=== PATIENT | female | born 1950 | race Asian ===

== ENCOUNTER 2018-09-13 16:03 | Inpatient (IN) | payer BC, MEDICARE ==
[2018-09-13] MEDS ORDERED: NACL 0.9% 1000 ML 1,000 ML IV ONE ×3 (16:15→18:21)
--- NOTE | 2018-09-13 16:20 | Emergency Department Report ---
Blank Doc - Documentation Documentation: 68 y/o female with DM II on Metformin. Comes in for hyperglycemia. Was seen by Dr. Toth today and was sent to ER last A1c 15. Lanse dizzy. This initial assessment diagnostic orders/clinical plan/treatment (s) is/Are subject change based on patient's health status, clinical progression and re- assessment by fellow clinical providers in the ED. Further treatment and work-up at subsequent clinical providers discretion. Patient/guardians urged not to elope from s their condition may be serious if not clinically assessed and managed. Inital order include:
[2018-09-13 16:39] LABS: Basophils % (Auto) 0.4 % (0.0-1.8); Eosinophils % (Auto) 0.5 % (0.0-4.3); Hematocrit 40.4 % (30.3-42.9); Hemoglobin 13.5 gm/dl (10.1-14.3); Lymphocytes # (Auto) 1.1 K/mm3 (1.2-5.4); Lymphocytes % (Auto) 15.5 % (13.4-35.0); Mean Corpuscular HGB Conc 34 % (30-34); Mean Corpuscular Volume 96 fl (79-97); Monocytes # (Auto) 0.6 K/mm3 (0.0-0.8); Monocytes % (Auto) 8.5 % (0.0-7.3); Platelet Count 234 K/mm3 (140-440); Red Blood Count 4.19 M/mm3 (3.65-5.03); Red Cell Distribution Width 12.8 % (13.2-15.2)
[2018-09-13 17:09] LABS: Alanine Aminotransferase 10 units/L (7-56); Albumin 3.9 g/dL (3.9-5); BUN/Creatinine Ratio 27; Blood Urea Nitrogen 16 mg/dL (7-17); Calcium 8.9 mg/dL (8.4-10.2); Hemolysis Index 5
[2018-09-13] MEDS ORDERED: HumuLIN R IV ONE (17:28)
--- NOTE | 2018-09-13 17:34 | Emergency Department Report ---
ED General Adult HPI - General Chief complaint: Hyperglycemia Stated complaint: UNCONTROLLED SUGAR LEVEL Time Seen by Provider: 09/13/18 16:13 Source: patient Mode of arrival: Ambulatory Limitations: No Limitations - History of Present Illness Initial comments: 68-year-old female with history of diabetes, currently on metformin and presents the ED with hyperglycemia. Patient states she recently had blood work done, returned to her PCPs office today for results, and was told to come to the ER because her glucose was 503 in the office, A1C 15.4. Patient currently on metformin. The patient denies nausea, vomiting, diarrhea, abdominal pain, fever, recent illness. PCP: Dr Rod Ta -: unknown Severity scale (0 -10): 0 Improves with: none Worsens with: none Associated Symptoms: denies: chest pain, fever/chills, nausea/vomiting Treatments Prior to Arrival: none - Related Data Allergies Allergy/AdvReac Type Severity Reaction Status Date / Time No Known Allergies Allergy Unverified 09/13/18 16:10 ED Review of Systems ROS: Stated complaint: UNCONTROLLED SUGAR LEVEL Other details as noted in HPI Comment: All other systems reviewed and negative Constitutional: other (reports unexplained weight loss). denies: chills, fever Respiratory: denies: cough Cardiovascular: denies: chest pain Gastrointestinal: denies: abdominal pain, vomiting, diarrhea ED Past Medical Hx - Past Medical History Previous Medical History?: Yes Hx Diabetes: Yes Hx Asthma: Yes Additional medical history: Legally Blind - Surgical History Past Surgical History?: No - Social History Smoking Status: Never Smoker Substance Use Type: None ED Physical Exam - General Limitations: No Limitations General appearance: alert, in no apparent distress - Head Head exam: Present: atraumatic, normocephalic - Eye Eye exam: Present: normal appearance - ENT ENT exam: Present: mucous membranes moist - Neck Neck exam: Present: normal inspection - Respiratory Respiratory exam: Present: normal lung sounds bilaterally. Absent: respiratory distress - Cardiovascular Cardiovascular Exam: Present: regular rate, normal rhythm - GI/Abdominal GI/Abdominal exam: Present: soft, distended. Absent: tenderness - Extremities Exam Extremities exam: Present: normal inspection - Neurological Exam Neurological exam: Present: alert, oriented X3 - Psychiatric Psychiatric exam: Present: normal affect, normal mood - Skin Skin exam: Present: warm, dry, intact, normal color ED Course Vital Signs 02/09/13/18 09/13/18 16:14 16:53 19:40 Temperature 98.3 F 99.1 F Pulse Rate 98 H 111 H Respiratory 16 16 16 Rate Blood Pressure 128/75 Blood Pressure 139/86 [Left] O2 Sat by Pulse 98 100 Oximetry 09/13/18 09/13/18 09/13/18 20:45 21:00 21:15 Temperature Pulse Rate 119 H 102 H 97 H Respiratory 19 16 18 Rate Blood Pressure 128/79 128/79 Blood Pressure [Left] O2 Sat by Pulse 100 100 Oximetry 09/13/18 09/13/18 09/13/18 22:53 22:59 23:00 Temperature Pulse Rate 80 71 71 Respiratory 9 L 12 12 Rate Blood Pressure 152/87 162/85 140/87 Blood Pressure [Left] O2 Sat by Pulse Oximetry 09/13/18 09/13/18 09/13/18 23:15 23:23 23:30 Temperature Pulse Rate 70 72 68 Respiratory 12 11 L 13 Rate Blood Pressure 140/87 140/87 140/87 Blood Pressure [Left] O2 Sat by Pulse Oximetry 09/13/18 09/13/18 09/14/18 23:33 23:45 00:01 Temperature Pulse Rate 65 73 68 Respiratory 13 13 13 Rate Blood Pressure 128/79 140/77 123/74 Blood Pressure [Left] O2 Sat by Pulse Oximetry 09/14/18 09/14/18 09/14/18 00:15 00:30 00:45 Temperature Pulse Rate 70 67 70 Respiratory 9 L 12 13 Rate Blood Pressure 123/74 138/80 138/80 Blood Pressure [Left] O2 Sat by Pulse Oximetry ED Medical Decision Making - Lab Data Result diagrams: 09/13/18 16:28 09/13/18 22:47 - Medical Decision Making 68 year old female with extremely elevated glucose. Patient states she is compliant with her metformin and follows a diabetic diet. Patient's PCP contacted hospitalist, Dr. Pereira, for admission of the patient and insulin therapy. Patient does not appear to be in DKA, as her bicarbonate and anion gap are both normal. IV fluids and insulin given. Patient admitted to hospitalist. - Differential Diagnosis hyperglycemia, UTI, DKA Critical care attestation.: If time is entered above; I have spent that time in minutes in the direct care of this critically ill patient, excluding procedure time. ED Disposition Clinical Impression: Hyperglycemia Disposition: DC- OP ADMIT IP TO THIS HOSP Is pt being admited?: Yes Condition: Stable Time of Disposition: 17:39
[2018-09-13] MEDS ORDERED: PROVENTIL IH PRN (18:18)
[2018-09-13] MEDS ORDERED: SODIUM CHLORIDE FLUSH SYRINGE 10 ML IV PRN (18:18)
[2018-09-13] MEDS ORDERED: D50W (25GM) Syringe IV PRN (18:21)
--- NOTE | 2018-09-13 18:22 | History and Physical Report ---
History of Present Illness Chief complaint: My blood sugar is high History of present illness: 68 YO Female DM, Dementia, Malnutrition, Asthma, Legally blind presents to ED for evaluation. Patient was seen and evaluated by he PCP and was found to have glucose of 503 and HGB A1c of 15.4. Pt also reports polydipsia, polyuria. Pt instructed to seek further care and evaluation at [facility]. Pt seen and evaluated in ED and found to have DKA, and Visual Impairment,Severe Malnutrition, volume depletion. Pt initiated on DKA protocol and admitted to ICU. PT denies fever, chills, CP, Palpitations, Trauma, Syncope, Productive cough, or recent ill contacts. PCP: Dr. Ta. Past History Past Medical History: diabetes, other (Dementia,) Past Surgical History: No surgical history, Other (reviewed) Social history: single. denies: smoking, alcohol abuse, prescription drug abuse Family history: diabetes, hypertension Medications and Allergies Allergies Allergy/AdvReac Type Severity Reaction Status Date / Time No Known Allergies Allergy Unverified 09/13/18 16:10 Active Meds: Active Medications Albuterol (Proventil) 2.5 mg IH Q3HRT PRN PRN Reason: Shortness Of Breath Sodium Chloride (Nacl 0.9% 1000 Ml) 1,000 mls @ 999 mls/hr IV BOLUS ONE Stop: 09/13/18 18:28 Sodium Chloride (Sodium Chloride Flush Syringe 10 Ml) 10 ml IV BID AUSTEN Sodium Chloride (Sodium Chloride Flush Syringe 10 Ml) 10 ml IV PRN PRN PRN Reason: LINE FLUSH Review of Systems Constitutional: other (high blood sugear), no weight loss, no weight gain, no fever, no chills Ears, nose, mouth and throat: no ear pain, no ear discharge, no tinnitis, no decreased hearing, no nose pain Breasts: no change in shape, no swelling, no mass Cardiovascular: no chest pain, no orthopnea, no palpitations, no rapid/irregular heart beat Respiratory: no cough, no cough with sputum, no excessive sputum, no hemoptysis Gastrointestinal: no abdominal pain, no nausea, no vomiting Rectal: no pain, no incontinence, no bleeding Musculoskeletal: no neck stiffness, no neck pain, no shooting arm pain, no arm numbness/tingling, no low back pain Integumentary: no rash, no pruritis, no redness, no sores, no wounds Neurological: no paralysis, no weakness, no parathesias, no numbness, no tingling, no seizures Psychiatric: no anxiety, no memory loss, no change in sleep habits, no sleep disturbances, no insomnia, no hypersomnia, no change in appetite Endocrine: polydipsia, polyuria, nocturia, no cold intolerance, no heat intolerance, no polyphagia Hematologic/Lymphatic: no easy bruising, no easy bleeding Allergic/Immunologic: no urticaria, no allergic rhinitis Exam - Constitutional Vitals: Temp Pulse Resp BP Pulse Ox 98.3 F 98 H 16 128/75 98 09/13/18 16:14 09/13/18 16:14 09/13/18 16:53 09/13/18 16:14 09/13/18 16:14 General appearance: Present: mild distress - EENT Eyes: Present: PERRL ENT: hearing intact, clear oral mucosa - Neck Neck: Present: supple, normal ROM - Respiratory Respiratory effort: normal Respiratory: bilateral: CTA - Cardiovascular Heart Sounds: Present: S1 & S2. Absent: rub, click - Extremities Extremities: pulses symmetrical, No edema Peripheral Pulses: within normal limits - Abdominal General gastrointestinal: Present: soft, non-tender, non-distended, normal bowel sounds Female genitourinary: Present: normal - Integumentary Integumentary: Present: clear, warm, dry - Musculoskeletal Musculoskeletal: gait normal, strength equal bilaterally - Psychiatric Psychiatric: appropriate mood/affect, intact judgment & insight - Neurologic Neurologic: CNII-XII intact, moves all extremities Results - Labs CBC & Chem 7: 09/14/18 03:26 09/14/18 04:06 Labs: Abnormal lab results 09/13/18 09/13/18 09/13/18 Range/Units 16:17 16:28 16:28 RDW 12.8 L (13.2-15.2) % [place] % (Auto) 8.5 H (0.0-7.3) % Lymph # 1.1 L (1.2-5.4) K/mm3 Seg Neutrophils % 75.1 H (40.0-70.0) % Sodium 127 L (137-145) mmol/L Chloride 88.1 L (98-107) mmol/L Creatinine 0.6 L (0.7-1.2) mg/dL Glucose 726 H* (65-100) mg/dL POC Glucose > 500 H (70-105) Assessment and Plan - Patient Problems (1) DKA (diabetic ketoacidoses) Current Visit: Yes Status: Acute Qualifiers: Diabetes mellitus type: type 1 Plan to address problem: Admit to ICU: Initiate DKA protocol, IVF resuscitation therapy, monitor uop qshift, ivf resuscitation, insulin drip, serial bmp to monitor anion gap The high probability of a clinically significant, sudden or life threatening deterioration of the [neuro, endocrine] system(s) required my full and direct attention, intervention and personal management. The aggregate critical care time was [65] minutes. This time is in addition to time spent performing reported procedures but includes the following: [x] Data Review and interpretation [x] Patient assessment and monitoring of vital signs [x] Documentation [x] Medication orders and management (2) Malnutrition Current Visit: Yes Status: Acute Plan to address problem: moderate-severe malnutrition: Encourage increased protein intake (3) Volume depletion Current Visit: Yes Status: Acute Plan to address problem: IVF resuscitation therapy (4) DVT prophylaxis Current Visit: Yes Status: Acute Plan to address problem: scd to ble while in bed
[2018-09-13] MEDS ORDERED: HumuLIN R 100 UNITS in NACL 0.9% 99 ML IV SCH (19:00)
[2018-09-13 19:14] LABS: BUN/Creatinine Ratio 25; Blood Urea Nitrogen 15 mg/dL (7-17); Calcium 8.8 mg/dL (8.4-10.2); Hemolysis Index 4
[2018-09-13] MEDS ORDERED: NACL 0.9% 1000 ML 1,000 ML ONE (19:44)
[2018-09-13 20:51] LABS: BUN/Creatinine Ratio 28; Blood Urea Nitrogen 14 mg/dL (7-17); Calcium 7.7 mg/dL (8.4-10.2); Hemolysis Index 3
[2018-09-13 23:16] LABS: BUN/Creatinine Ratio 24; Blood Urea Nitrogen 12 mg/dL (7-17); Calcium 8.1 mg/dL (8.4-10.2); Hemolysis Index 4
[2018-09-13] MEDS ORDERED: D5W/0.45% NACL/KCL 20 MEQ 20 MEQ/1,000 ML BAG IV SCH (23:45)
[2018-09-13] MEDS: SODIUM CHLORIDE FLUSH SYRINGE 10 ML IV SCH (23:48)
[2018-09-14 01:00] LABS: BUN/Creatinine Ratio 20; Blood Urea Nitrogen 10 mg/dL (7-17); Calcium 7.9 mg/dL (8.4-10.2); Hemolysis Index 6
[2018-09-14 03:32] LABS: Basophils % (Auto) 0.3 % (0.0-1.8); Eosinophils # (Auto) 0.1 K/mm3 (0.0-0.4); Eosinophils % (Auto) 1.7 % (0.0-4.3); Hematocrit 35.5 % (30.3-42.9); Hemoglobin 12.1 gm/dl (10.1-14.3); Lymphocytes # (Auto) 1.4 K/mm3 (1.2-5.4); Lymphocytes % (Auto) 21.1 % (13.4-35.0); Mean Corpuscular HGB Conc 34 % (30-34); Mean Corpuscular Volume 95 fl (79-97); Monocytes # (Auto) 0.6 K/mm3 (0.0-0.8); Monocytes % (Auto) 9.6 % (0.0-7.3); Platelet Count 223 K/mm3 (140-440); Red Blood Count 3.74 M/mm3 (3.65-5.03); Red Cell Distribution Width 12.8 % (13.2-15.2)
[2018-09-14 04:07] LABS: Alanine Aminotransferase 10 units/L (7-56); BUN/Creatinine Ratio 23; Blood Urea Nitrogen 9 mg/dL (7-17); Calcium 8.1 mg/dL (8.4-10.2); Hemolysis Index 6
[2018-09-14 05:11] LABS: Alanine Aminotransferase 10 units/L (7-56); Albumin 2.9 g/dL (3.9-5); BUN/Creatinine Ratio 23; Blood Urea Nitrogen 9 mg/dL (7-17); Hemolysis Index 10
[2018-09-14] MEDS: SODIUM CHLORIDE FLUSH SYRINGE 10 ML IV SCH ×2 (10:57→21:37)
--- NOTE | 2018-09-14 11:05 | Progress Note ---
Assessment and Plan Assessment and plan: Patient is a 68 yo woman with a history of DM, Malnutrition, Asthma and Legally blind who presented to ED with uncontrolled hyperglycemia of 503 and HGB A1c of 15.4. She was diagnosis with DKA and treated with IV insulin drip and admitted to ICU. Her main compliant is unintentional weight loss and problems with her eye sight. She went to Dr. Ta's office for clearance for eye surgery but her BG was too high -HONK, resolved: transition to long acting insulin -Unintentional weight Loss, 80 lbs in 3 months: spoke with PCP Dr. Ta, he gave he referrals for mammogram, pap smear and colonoscopy but patient did not follow through -Severe Malnutrition, poa: Consult -Hypokalemia: replaced and monitor closely -Uncontrolled DM, A1C 12.2: add ssi -Legally blind and no support home which makes dosing Insulin difficulty: consult case management CCT 34 minutes History Interval history: Patient was seen and examined. Follow-up on current diagnosis of uncontrolled BG. Overnight uneventful. Patient denies any chest pain, shortness breath, nausea/vomiting or severe headaches. Imaging, nursing note, chart, labs and old chart reviewed. Discussed with patient. Hospitalist Physical - Physical exam Narrative exam: Gen: cachetic, NAD, Awake, Alert, Orientated HEENT: NCAT, EOMI, PERRL, OP Clear, severe yazdanism muscle wasting Neck: supple, no adenopathy, no thyromegaly, no JVD CVS/Heart: RRR, normal S1S2, pulses present bilaterally Chest/Lungs: CTA B, Symmetrical chest expansion, good air entry bilaterally GI/Abdomen: soft, NTND, good bowel sounds, no guarding or rebound /Bladder: no suprapubic tenderness, no CVA or paraspinal tenderness Extermity/Skin: no c/c/e, no obvious rash MSK: FROM x 4 Neuro: CN 2-12 grossly intact, no new focal deficits Psych: calm - Constitutional Vitals: Temp Pulse Resp BP Pulse Ox 97.9 F 68 12 138/80 100 09/14/18 08:00 09/14/18 01:15 09/14/18 01:15 09/14/18 01:15 09/13/18 21:15 Results - Labs CBC & Chem 7: 09/14/18 03:26 09/14/18 04:06 Labs: Laboratory Last Values WBC 6.6 K/mm3 (4.5-11.0) 09/14/18 03:26 RBC 3.74 M/mm3 (3.65-5.03) 09/14/18 03:26 Hgb 12.1 gm/dl (10.1-14.3) 09/14/18 03:26 Hct 35.5 % (30.3-42.9) 09/14/18 03:26 MCV 95 fl (79-97) 09/14/18 03:26 MCH 32 pg (28-32) 09/14/18 03:26 MCHC 34 % (30-34) 09/14/18 03:26 RDW 12.8 % (13.2-15.2) L 09/14/18 03:26 Plt Count 223 K/mm3 (140-440) 09/14/18 03:26 Lymph % (Auto) 21.1 % (13.4-35.0) 09/14/18 03:26 [place] % (Auto) 9.6 % (0.0-7.3) H 09/14/18 03:26 Eos % (Auto) 1.7 % (0.0-4.3) 09/14/18 03:26 Baso % (Auto) 0.3 % (0.0-1.8) 09/14/18 03:26 Lymph # 1.4 K/mm3 (1.2-5.4) 09/14/18 03:26 [place] # 0.6 K/mm3 (0.0-0.8) 09/14/18 03:26 Eos # 0.1 K/mm3 (0.0-0.4) 09/14/18 03:26 Baso # 0.0 K/mm3 (0.0-0.1) 09/14/18 03:26 Seg Neutrophils % 67.3 % (40.0-70.0) 09/14/18 03:26 Seg Neutrophils # 4.4 K/mm3 (1.8-7.7) 09/14/18 03:26 Sodium 139 mmol/L (137-145) 09/14/18 04:06 Potassium 3.7 mmol/L (3.6-5.0) 09/14/18 04:06 Chloride 105.0 mmol/L (98-107) 09/14/18 04:06 Carbon Dioxide 20 mmol/L (22-30) L 09/14/18 04:06 Anion Gap 18 mmol/L 09/14/18 04:06 BUN 9 mg/dL (7-17) 09/14/18 04:06 Creatinine 0.4 mg/dL (0.7-1.2) L 09/14/18 04:06 Estimated GFR > 60 ml/min 09/14/18 04:06 BUN/Creatinine Ratio 23 % 09/14/18 04:06 Glucose 160 mg/dL (65-100) H 09/14/18 04:06 POC Glucose 73 (70-105) 09/14/18 10:49 Hemoglobin A1c 12.2 % (4-6) H 09/13/18 18:50 Calcium 8.0 mg/dL (8.4-10.2) L 09/14/18 04:06 Phosphorus 2.90 mg/dL (2.5-4.5) 09/13/18 18:50 Magnesium 1.70 mg/dL (1.7-2.3) 09/13/18 18:50 Total Bilirubin 0.90 mg/dL (0.1-1.2) 09/14/18 04:06 AST 11 units/L (5-40) 09/14/18 04:06 ALT 10 units/L (7-56) 09/14/18 04:06 Alkaline Phosphatase 39 units/L (35-129) 09/14/18 04:06 Total Protein 5.2 g/dL (6.3-8.2) L 09/14/18 04:06 Albumin 2.9 g/dL (3.9-5) L 09/14/18 04:06 Albumin/Globulin Ratio 1.3 % 09/14/18 04:06
[2018-09-14] MEDS ORDERED: D50W (25GM) Syringe IV PRN (11:28)
[2018-09-14] MEDS: HumaLOG SUB-Q SCH ×3 (11:45→21:36)
[2018-09-14] MEDS: LANTUS SUB-Q SCH (11:50)
--- NOTE | 2018-09-14 12:37 | Consultation ---
History of Present Illness - Reason for Consult Consult date: 09/14/18 Hyperglycemia Requesting physician: FRANKLYN OSWALD - History of Present Illness 68 y/o female with know diabetes, called her PCP who instructed her to come to ED secondary to elevated blood sugar. Patient was not in DKA. She was started on an insulin drip and this she used at total of 24 units in the last 9 hours. Drip is now off. Unclear as to why she was admitted to the ICU. Past History Past Medical History: diabetes, other (Dementia,) Past Surgical History: No surgical history, Other (reviewed) Social history: single. denies: smoking, alcohol abuse, prescription drug abuse Family history: diabetes, hypertension Medications and Allergies Allergies Allergy/AdvReac Type Severity Reaction Status Date / Time No Known Allergies Allergy Unverified 09/13/18 16:10 Active Meds: Active Medications Albuterol (Proventil) 2.5 mg IH Q3HRT PRN PRN Reason: Shortness Of Breath Dextrose (D50w (25gm) Syringe) 50 ml IV PRN PRN PRN Reason: Hypoglycemia Insulin Glargine (Lantus) 10 units SUB-Q QAMDIAB AUSTNE Insulin Human Lispro (Humalog) 0 unit SUB-Q ACHS AUSTEN; Protocol Sodium Chloride (Sodium Chloride Flush Syringe 10 Ml) 10 ml IV BID AUSTEN Last Admin: 09/13/18 23:48 Dose: 10 ml Documented by: Sodium Chloride (Sodium Chloride Flush Syringe 10 Ml) 10 ml IV PRN PRN PRN Reason: LINE FLUSH Review of Systems All systems: negative Exam - Constitutional Vitals: Temp Pulse Resp BP Pulse Ox 98.6 F 68 12 138/80 100 09/14/18 12:00 09/14/18 01:15 09/14/18 01:15 09/14/18 01:15 09/14/18 11:58 General appearance: Present: no acute distress - EENT Eyes: Present: PERRL, EOM intact ENT: hearing intact, clear oral mucosa - Neck Neck: Present: supple, normal ROM - Respiratory Respiratory effort: normal Respiratory: bilateral: CTA - Cardiovascular Rhythm: regular Heart Sounds: Present: S1 & S2 - Extremities Extremities: no ischemia - Abdominal General gastrointestinal: Present: soft, non-tender, non-distended, normal bowel sounds Results - Labs CBC & Chem 7: 09/14/18 03:26 02/28/19 04:06 Labs: Abnormal lab results 09/13/18 09/13/18 09/13/18 Range/Units 16:17 16:28 16:28 RDW 12.8 L (13.2-15.2) % [place] % (Auto) 8.5 H (0.0-7.3) % Lymph # 1.1 L (1.2-5.4) K/mm3 Seg Neutrophils % 75.1 H (40.0-70.0) % Sodium 127 L (137-145) mmol/L Potassium (3.6-5.0) mmol/L Chloride 88.1 L (98-107) mmol/L Carbon Dioxide (22-30) mmol/L Creatinine 0.6 L (0.7-1.2) mg/dL Glucose 726 H* (65-100) mg/dL POC Glucose > 500 H (70-105) Hemoglobin A1c (4-6) % Calcium (8.4-10.2) mg/dL Total Protein (6.3-8.2) g/dL Albumin (3.9-5) g/dL 09/13/18 09/13/18 09/13/18 Range/Units 18:50 18:50 20:09 RDW (13.2-15.2) % [place] % (Auto) (0.0-7.3) % Lymph # (1.2-5.4) K/mm3 Seg Neutrophils % (40.0-70.0) % Sodium 134 L D 136 L (137-145) mmol/L Potassium 3.4 L 3.5 L (3.6-5.0) mmol/L Chloride 95.1 L (98-107) mmol/L Carbon Dioxide (22-30) mmol/L Creatinine 0.6 L 0.5 L (0.7-1.2) mg/dL Glucose 452 H 326 H (65-100) mg/dL POC Glucose (70-105) Hemoglobin A1c 12.2 H (4-6) % Calcium 7.7 L (8.4-10.2) mg/dL Total Protein (6.3-8.2) g/dL Albumin (3.9-5) g/dL 09/13/18 09/13/18 09/13/18 Range/Units 21:40 22:47 23:07 RDW (13.2-15.2) % [place] % (Auto) (0.0-7.3) % Lymph # (1.2-5.4) K/mm3 Seg Neutrophils % (40.0-70.0) % Sodium 135 L (137-145) mmol/L Potassium 3.4 L (3.6-5.0) mmol/L Chloride (98-107) mmol/L Carbon Dioxide (22-30) mmol/L Creatinine 0.5 L (0.7-1.2) mg/dL Glucose 284 H (65-100) mg/dL POC Glucose 264 H 232 H (70-105) Hemoglobin A1c (4-6) % Calcium 8.1 L (8.4-10.2) mg/dL Total Protein (6.3-8.2) g/dL Albumin (3.9-5) g/dL 09/14/18 09/14/18 09/14/18 Range/Units 00:07 00:14 01:07 RDW (13.2-15.2) % [place] % (Auto) (0.0-7.3) % Lymph # (1.2-5.4) K/mm3 Seg Neutrophils % (40.0-70.0) % Sodium (137-145) mmol/L Potassium 3.3 L (3.6-5.0) mmol/L Chloride (98-107) mmol/L Carbon Dioxide (22-30) mmol/L Creatinine 0.5 L (0.7-1.2) mg/dL Glucose 161 H (65-100) mg/dL POC Glucose 185 H 130 H (70-105) Hemoglobin A1c (4-6) % Calcium 7.9 L (8.4-10.2) mg/dL Total Protein (6.3-8.2) g/dL Albumin (3.9-5) g/dL 09/14/18 09/14/18 09/14/18 Range/Units 03:26 03:26 04:04 RDW 12.8 L (13.2-15.2) % [place] % (Auto) 9.6 H (0.0-7.3) % Lymph # (1.2-5.4) K/mm3 Seg Neutrophils % (40.0-70.0) % Sodium (137-145) mmol/L Potassium (3.6-5.0) mmol/L Chloride (98-107) mmol/L Carbon Dioxide (22-30) mmol/L Creatinine 0.4 L (0.7-1.2) mg/dL Glucose 131 H (65-100) mg/dL POC Glucose 151 H (70-105) Hemoglobin A1c (4-6) % Calcium 8.1 L (8.4-10.2) mg/dL Total Protein 5.1 L D (6.3-8.2) g/dL Albumin 3.0 L (3.9-5) g/dL 09/14/18 09/14/18 09/14/18 Range/Units 04:06 05:13 06:58 RDW (13.2-15.2) % [place] % (Auto) (0.0-7.3) % Lymph # (1.2-5.4) K/mm3 Seg Neutrophils % (40.0-70.0) % Sodium (137-145) mmol/L Potassium (3.6-5.0) mmol/L Chloride (98-107) mmol/L Carbon Dioxide 20 L (22-30) mmol/L Creatinine 0.4 L (0.7-1.2) mg/dL Glucose 160 H (65-100) mg/dL POC Glucose 193 H 193 H (70-105) Hemoglobin A1c (4-6) % Calcium 8.0 L (8.4-10.2) mg/dL Total Protein 5.2 L (6.3-8.2) g/dL Albumin 2.9 L (3.9-5) g/dL 09/14/18 09/14/18 09/14/18 Range/Units 08:09 09:16 11:15 RDW (13.2-15.2) % [place] % (Auto) (0.0-7.3) % Lymph # (1.2-5.4) K/mm3 Seg Neutrophils % (40.0-70.0) % Sodium (137-145) mmol/L Potassium (3.6-5.0) mmol/L Chloride (98-107) mmol/L Carbon Dioxide (22-30) mmol/L Creatinine (0.7-1.2) mg/dL Glucose (65-100) mg/dL POC Glucose 166 H 174 H 69 L (70-105) Hemoglobin A1c (4-6) % Calcium (8.4-10.2) mg/dL Total Protein (6.3-8.2) g/dL Albumin (3.9-5) g/dL Assessment and Plan 68 y/o female with hyperglycemia. 1. Suggest increasing lantus to 12 daily nased on need from IV insulin infusion 2. Otherwise stable for transfer to floor, will sign off.
[2018-09-14 18:40] LABS: Bilirubin,Urine NEG (Negative); Blood,Urine NEG (Negative); Color,Urine Straw (Yellow); Protein,Urine <15 mg/dL mg/dL (Negative); RBC,Urine < 1.0 /HPF (0.0-6.0)
[2018-09-15 06:00] LABS: Hematocrit 36.1 % (30.3-42.9); Hemoglobin 12.1 gm/dl (10.1-14.3); Mean Corpuscular HGB Conc 34 % (30-34); Mean Corpuscular Volume 96 fl (79-97); Platelet Count 216 K/mm3 (140-440); Red Blood Count 3.75 M/mm3 (3.65-5.03); Red Cell Distribution Width 12.7 % (13.2-15.2)
[2018-09-15 06:16] LABS: BUN/Creatinine Ratio 24; Blood Urea Nitrogen 12 mg/dL (7-17); Calcium 8.2 mg/dL (8.4-10.2); Hemolysis Index 11
[2018-09-15] MEDS: HumaLOG SUB-Q SCH ×4 (08:48→23:00)
[2018-09-15] MEDS: LANTUS SUB-Q SCH (09:24)
[2018-09-15] MEDS: SODIUM CHLORIDE FLUSH SYRINGE 10 ML IV SCH ×2 (09:39→23:00)
--- NOTE | 2018-09-15 20:46 | Progress Note ---
Assessment and Plan Assessment and plan: Patient is a 68 yo woman with a history of DM, Malnutrition, Asthma and Legally blind who presented to ED with uncontrolled hyperglycemia of 503 and HGB A1c of 15.4. She was diagnosis with DKA and treated with IV insulin drip and admitted to ICU. Her main compliant is unintentional weight loss and problems with her eye sight. She went to Dr. Ta's office for clearance for eye surgery but her BG was too high -HONK, resolved: transition to long acting insulin -Unintentional weight Loss, 80 lbs in 3 months: spoke with PCP Dr. Ta, he gave he referrals for mammogram, pap smear and colonoscopy but patient did not follow through -Severe Malnutrition, poa: Consult Material Control Associate -Hypokalemia: replaced and monitor closely -Uncontrolled DM, A1C 12.2: add ssi -Legally blind and no support home which makes dosing Insulin difficulty: consult case management History Interval history: Patient was seen and examined. Follow-up on current diagnosis of uncontrolled BG. Overnight uneventful. Patient denies any chest pain, shortness breath, nausea/vomiting or severe headaches. Imaging, nursing note, chart, labs and old chart reviewed. Discussed with patient. Hospitalist Physical - Physical exam Narrative exam: Gen: cachetic, NAD, Awake, Alert, Orientated HEENT: NCAT, EOMI, PERRL, OP Clear, severe scientology muscle wasting Neck: supple, no adenopathy, no thyromegaly, no JVD CVS/Heart: RRR, normal S1S2, pulses present bilaterally Chest/Lungs: CTA B, Symmetrical chest expansion, good air entry bilaterally GI/Abdomen: soft, NTND, good bowel sounds, no guarding or rebound /Bladder: no suprapubic tenderness, no CVA or paraspinal tenderness Extermity/Skin: no c/c/e, no obvious rash MSK: FROM x 4 Neuro: CN 2-12 grossly intact, no new focal deficits Psych: calm - Constitutional Vitals: Temp Pulse Resp BP Pulse Ox 99.3 F 110 H 20 128/71 98 09/15/18 13:30 09/15/18 13:30 09/15/18 13:30 09/15/18 13:30 09/15/18 19:43 General appearance: Present: no acute distress Results - Labs CBC & Chem 7: 09/15/18 04:42 09/15/18 04:42 Labs: Laboratory Last Values WBC 4.9 K/mm3 (4.5-11.0) 09/15/18 04:42 RBC 3.75 M/mm3 (3.65-5.03) 09/15/18 04:42 Hgb 12.1 gm/dl (10.1-14.3) 09/15/18 04:42 Hct 36.1 % (30.3-42.9) 09/15/18 04:42 MCV 96 fl (79-97) 09/15/18 04:42 MCH 32 pg (28-32) 09/15/18 04:42 MCHC 34 % (30-34) 09/15/18 04:42 RDW 12.7 % (13.2-15.2) L 09/15/18 04:42 Plt Count 216 K/mm3 (140-440) 09/15/18 04:42 Lymph % (Auto) 21.1 % (13.4-35.0) 09/14/18 03:26 [place] % (Auto) 9.6 % (0.0-7.3) H 09/14/18 03:26 Eos % (Auto) 1.7 % (0.0-4.3) 09/14/18 03:26 Baso % (Auto) 0.3 % (0.0-1.8) 09/14/18 03:26 Lymph # 1.4 K/mm3 (1.2-5.4) 09/14/18 03:26 [place] # 0.6 K/mm3 (0.0-0.8) 09/14/18 03:26 Eos # 0.1 K/mm3 (0.0-0.4) 09/14/18 03:26 Baso # 0.0 K/mm3 (0.0-0.1) 09/14/18 03:26 Seg Neutrophils % 67.3 % (40.0-70.0) 09/14/18 03:26 Seg Neutrophils # 4.4 K/mm3 (1.8-7.7) 09/14/18 03:26 Sodium 138 mmol/L (137-145) 09/15/18 04:42 Potassium 3.8 mmol/L (3.6-5.0) 09/15/18 04:42 Chloride 103.7 mmol/L (98-107) 09/15/18 04:42 Carbon Dioxide 24 mmol/L (22-30) 09/15/18 04:42 Anion Gap 14 mmol/L 09/15/18 04:42 BUN 12 mg/dL (7-17) 09/15/18 04:42 Creatinine 0.5 mg/dL (0.7-1.2) L 09/15/18 04:42 Estimated GFR > 60 ml/min 09/15/18 04:42 BUN/Creatinine Ratio 24 % 09/15/18 04:42 Glucose 249 mg/dL (65-100) H 09/15/18 04:42 POC Glucose 261 (70-105) H 09/15/18 16:40 Hemoglobin A1c 12.2 % (4-6) H 09/13/18 18:50 Calcium 8.2 mg/dL (8.4-10.2) L 09/15/18 04:42 Phosphorus 2.90 mg/dL (2.5-4.5) 09/13/18 18:50 Magnesium 1.70 mg/dL (1.7-2.3) 09/13/18 18:50 Total Bilirubin 0.90 mg/dL (0.1-1.2) 09/14/18 04:06 AST 11 units/L (5-40) 09/14/18 04:06 ALT 10 units/L (7-56) 09/14/18 04:06 Alkaline Phosphatase 39 units/L (35-129) 09/14/18 04:06 Total Protein 5.2 g/dL (6.3-8.2) L 09/14/18 04:06 Albumin 2.9 g/dL (3.9-5) L 09/14/18 04:06 Albumin/Globulin Ratio 1.3 % 09/14/18 04:06 Urine Color Straw (Yellow) 09/14/18 17:00 Urine Turbidity Clear (Clear) 09/14/18 17:00 Urine pH 7.0 (5.0-7.0) 09/14/18 17:00 Ur Specific [place] 1.025 (1.003-1.030) 09/14/18 17:00 Urine Protein <15 mg/dl mg/dL (Negative) 09/14/18 17:00 Urine Glucose (UA) >=500 mg/dL (Negative) 09/14/18 17:00 Urine Ketones Neg mg/dL (Negative) 09/14/18 17:00 Urine Blood Neg (Negative) 09/14/18 17:00 Urine Nitrite Neg (Negative) 09/14/18 17:00 Urine Bilirubin Neg (Negative) 09/14/18 17:00 Urine Urobilinogen 4.0 mg/dL (<2.0) 09/14/18 17:00 Ur Leukocyte Esterase Neg (Negative) 09/14/18 17:00 Urine WBC (Auto) 1.0 /HPF (0.0-6.0) 09/14/18 17:00 Urine RBC (Auto) < 1.0 /HPF (0.0-6.0) 09/14/18 17:00 Nutrition/Malnutrition Assess - Dietary Evaluation Nutrition/Malnutrition Findings: Nutrition Notes Start: 09/14/18 12 :21 Freq: Status: Active Protocol: Document 09/15/18 10:58 SA (Rec: 09/15/18 11:03 [id number]) Co-Sign 09/15/18 10:58 LP Nutrition Notes Initial or Follow up Reassessment Current Diagnosis Diabetes Other Pertinent Diagnosis Asthma, legally blind, DKA, Dementia Current Diet Consistent CHO Labs/Tests Glu:249 Pertinent Medications Reviewed Height 5 ft 4 in Weight 48.081 kg [place] Body Weight (kg) 54.54 BMI 18.1 Weight change and time frame 29% weight loss in 2 months ( signficant) Weight Status Underweight Subjective/Other Information Patient states appetite is getting better and can finally eat again. Pt reports eating 100% of meals at hospital. Pt denies chewing/swallowing difficulties. Pt denies N/V/D. Pt states UBW being 150# and now around 100#. Pt interested in Glucerna. Percent of energy/protein needs met: 100%/100% Burn Absent Trauma Absent #1 Nutrition Diagnosis Malnutrition Diagnosis Progress(for reassessment Continues documentation) Is patient on ventilator? No Is Patient Ambulatory and/or Out of Bed No REE-([facility]-confined to bed) 1200.924 Kcal/Kg value to use for calculation 32 Approximate Energy Requirements Using 1539 kcal/Kg Calculation Used for Recommendations Kcal/kg Additional Notes Pro: 58-86g (1.2-1.5g/kg) Fluid: 1mL/kcal Nutrition Intervention Change Diet Order: Continue current Add Supplement/Snack (indicate name/kcal Glucerna one daily and add /protein ) extra portion of meat and nonstarchy vegetables Provides kCal: 220 Provides Protein (gm) 10 Goal #1 PO intakes to meet at least 75 % of energy and protein needs Anticipated Discharge Needs: Consistent CHO Follow-Up By: 09/19/18 Additional Comments F/U: PO and ONS intake
[2018-09-15] MEDS ORDERED: LANTUS SUB-Q ONE (21:00)
[2018-09-16 08:18] VITALS: BP 140/85
[2018-09-16] MEDS ORDERED: LANTUS SUB-Q SCH (10:00)
--- NOTE | 2018-09-16 10:10 | Progress Note ---
Assessment and Plan Assessment and plan: Patient is a 68 yo woman with a history of type 2 DM, Malnutrition, Asthma and Legally blind who presented to ED with uncontrolled hyperglycemia of 503 and HGB A1c of 15.4. She was diagnosis with DKA and treated with IV insulin drip and admitted to ICU. Her main compliant is unintentional weight loss and problems with her eye sight. She went to Dr. Ta's office for clearance for eye surgery but her BG was too high -HONK, resolved: transition to long acting insulin -Unintentional weight Loss, 80 lbs in 3 months: spoke with PCP Dr. Ta, he gave he referrals for mammogram, pap smear and colonoscopy but patient did not follow through -Severe Malnutrition, poa: Consult Real Estate Management Specialist -Hypokalemia: replaced and monitor closely -Uncontrolled DM, A1C 12.2: add ssi -Legally blind and no support home which makes dosing Insulin difficulty: consult case management, pt says she has a friend to set the prefill Insulin pens for her, will discharge with home health History Interval history: Patient was seen and examined. Follow-up on current diagnosis of uncontrolled BG. Overnight uneventful. Patient denies any chest pain, shortness breath, nausea/vomiting or severe headaches. Imaging, nursing note, chart, labs and old chart reviewed. Discussed with patient. Hospitalist Physical - Physical exam Narrative exam: Gen: cachetic, NAD, Awake, Alert, Orientated HEENT: NCAT, EOMI, PERRL, OP Clear, severe adventism muscle wasting Neck: supple, no adenopathy, no thyromegaly, no JVD CVS/Heart: RRR, normal S1S2, pulses present bilaterally Chest/Lungs: CTA B, Symmetrical chest expansion, good air entry bilaterally GI/Abdomen: soft, NTND, good bowel sounds, no guarding or rebound /Bladder: no suprapubic tenderness, no CVA or paraspinal tenderness Extermity/Skin: no c/c/e, no obvious rash MSK: FROM x 4 Neuro: CN 2-12 grossly intact except vision, no new focal deficits Psych: calm - Constitutional Vitals: Temp Pulse Resp BP Pulse Ox 98.9 F 95 H 18 140/85 98 09/16/18 07:06 09/16/18 07:06 09/16/18 07:45 09/16/18 07:06 09/16/18 07:45 General appearance: Present: no acute distress Results - Labs CBC & Chem 7: 09/15/18 04:42 09/15/18 04:42 Labs: Laboratory Last Values WBC 4.9 K/mm3 (4.5-11.0) 09/15/18 04:42 RBC 3.75 M/mm3 (3.65-5.03) 09/15/18 04:42 Hgb 12.1 gm/dl (10.1-14.3) 09/15/18 04:42 Hct 36.1 % (30.3-42.9) 09/15/18 04:42 MCV 96 fl (79-97) 09/15/18 04:42 MCH 32 pg (28-32) 09/15/18 04:42 MCHC 34 % (30-34) 09/15/18 04:42 RDW 12.7 % (13.2-15.2) L 09/15/18 04:42 Plt Count 216 K/mm3 (140-440) 09/15/18 04:42 Lymph % (Auto) 21.1 % (13.4-35.0) 09/14/18 03:26 [place] % (Auto) 9.6 % (0.0-7.3) H 09/14/18 03:26 Eos % (Auto) 1.7 % (0.0-4.3) 09/14/18 03:26 Baso % (Auto) 0.3 % (0.0-1.8) 09/14/18 03:26 Lymph # 1.4 K/mm3 (1.2-5.4) 09/14/18 03:26 [place] # 0.6 K/mm3 (0.0-0.8) 09/14/18 03:26 Eos # 0.1 K/mm3 (0.0-0.4) 09/14/18 03:26 Baso # 0.0 K/mm3 (0.0-0.1) 09/14/18 03:26 Seg Neutrophils % 67.3 % (40.0-70.0) 09/14/18 03:26 Seg Neutrophils # 4.4 K/mm3 (1.8-7.7) 09/14/18 03:26 Sodium 138 mmol/L (137-145) 09/15/18 04:42 Potassium 3.8 mmol/L (3.6-5.0) 09/15/18 04:42 Chloride 103.7 mmol/L (98-107) 09/15/18 04:42 Carbon Dioxide 24 mmol/L (22-30) 09/15/18 04:42 Anion Gap 14 mmol/L 09/15/18 04:42 BUN 12 mg/dL (7-17) 09/15/18 04:42 Creatinine 0.5 mg/dL (0.7-1.2) L 09/15/18 04:42 Estimated GFR > 60 ml/min 09/15/18 04:42 BUN/Creatinine Ratio 24 % 09/15/18 04:42 Glucose 249 mg/dL (65-100) H 09/15/18 04:42 POC Glucose 200 (70-105) H 09/16/18 07:10 Hemoglobin A1c 12.2 % (4-6) H 09/13/18 18:50 Calcium 8.2 mg/dL (8.4-10.2) L 09/15/18 04:42 Phosphorus 2.90 mg/dL (2.5-4.5) 09/13/18 18:50 Magnesium 1.70 mg/dL (1.7-2.3) 09/13/18 18:50 Total Bilirubin 0.90 mg/dL (0.1-1.2) 09/14/18 04:06 AST 11 units/L (5-40) 09/14/18 04:06 ALT 10 units/L (7-56) 09/14/18 04:06 Alkaline Phosphatase 39 units/L (35-129) 09/14/18 04:06 Total Protein 5.2 g/dL (6.3-8.2) L 09/14/18 04:06 Albumin 2.9 g/dL (3.9-5) L 09/14/18 04:06 Albumin/Globulin Ratio 1.3 % 09/14/18 04:06 Urine Color Straw (Yellow) 09/14/18 17:00 Urine Turbidity Clear (Clear) 09/14/18 17:00 Urine pH 7.0 (5.0-7.0) 09/14/18 17:00 Ur Specific [place] 1.025 (1.003-1.030) 09/14/18 17:00 Urine Protein <15 mg/dl mg/dL (Negative) 09/14/18 17:00 Urine Glucose (UA) >=500 mg/dL (Negative) 09/14/18 17:00 Urine Ketones Neg mg/dL (Negative) 09/14/18 17:00 Urine Blood Neg (Negative) 09/14/18 17:00 Urine Nitrite Neg (Negative) 09/14/18 17:00 Urine Bilirubin Neg (Negative) 09/14/18 17:00 Urine Urobilinogen 4.0 mg/dL (<2.0) 09/14/18 17:00 Ur Leukocyte Esterase Neg (Negative) 09/14/18 17:00 Urine WBC (Auto) 1.0 /HPF (0.0-6.0) 09/14/18 17:00 Urine RBC (Auto) < 1.0 /HPF (0.0-6.0) 09/14/18 17:00 Nutrition/Malnutrition Assess - Dietary Evaluation Nutrition/Malnutrition Findings: Nutrition Notes Start: 09/14/18 12:21 Freq: Status: Active Protocol: Document 09/15/18 10:58 SA (Rec: 09/15/18 11:03 [id number]) Co-Sign 09/15/18 10:58 LP Nutrition Notes Initial or Follow up Reassessment Current Diagnosis Diabetes Other Pertinent Diagnosis Asthma, legally blind, DKA, Dementia Current Diet Consistent CHO Labs/Tests Glu:249 Pertinent Medications Reviewed Height 5 ft 4 in Weight 48.081 kg [place] Body Weight (kg) 54.54 BMI 18.1 Weight change and time frame 29% weight loss in 2 months ( signficant) Weight Status Underweight Subjective/Other Information Patient states appetite is getting better and can finally eat again. Pt reports eating 100% of meals at hospital. Pt denies chewing/swallowing difficulties. Pt denies N/V/D. Pt states UBW being 150# and now around 100#. Pt interested in Glucerna. Percent of energy/protein needs met: 100%/100% Burn Absent Trauma Absent #1 Nutrition Diagnosis Malnutrition Diagnosis Progress(for reassessment Continues documentation) Is patient on ventilator? No Is Patient Ambulatory and/or Out of Bed No REE-([facility]-confined to bed) 1200.924 Kcal/Kg value to use for calculation 32 Approximate Energy Requirements Using 1539 kcal/Kg Calculation Used for Recommendations Kcal/kg Additional Notes Pro: 58-86g (1.2-1.5g/kg) Fluid: 1mL/kcal Nutrition Intervention Change Diet Order: Continue current Add Supplement/Snack (indicate name/kcal Glucerna one daily and add /protein ) extra portion of meat and nonstarchy vegetables Provides kCal: 220 Provides Protein (gm) 10 Goal #1 PO intakes to meet at least 75 % of energy and protein needs Anticipated Discharge Needs: Consistent CHO Follow-Up By: 09/19/18 Additional Comments F/U: PO and ONS intake
--- NOTE | 2018-09-16 10:12 | Discharge Summary ---
Providers - Providers Date of Admission: 09/13/18 18:19 Date of discharge: 09/16/18 Attending physician: LINDA JUÁREZ Primary care physician: THEODORE TA Hospitalization Condition: Stable Hospital course: Patient is a 68 yo woman with a history of DM, Malnutrition, Asthma and Legally blind who presented to ED with uncontrolled hyperglycemia of 503 and HGB A1c of 15.4. She was diagnosis with DKA and treated with IV insulin drip and admitted to ICU. Her main compliant is unintentional weight loss and problems with her eye sight. She went to Dr. Ta's office for clearance for eye surgery but her BG was too high -HONK, resolved: transition to long acting insulin -Unintentional weight Loss, 80 lbs in 3 months: spoke with PCP Dr. Ta, he gave he referrals for mammogram, pap smear and colonoscopy but patient did not follow through==>pt agreed to follow through -Severe Malnutrition, poa: Consulted School Crossing Guard -Hypokalemia: replaced and monitor closely -Uncontrolled DM, A1C 12.2: add ssi -Legally blind and no support home which makes dosing Insulin difficulty: pt says she has a friend to set the prefill Insulin pens for her, same friend that will pick her up today. I also ordered home health Disposition: [id number] HOME UNDER HOME [facility] Time spent for discharge: 34 minutes Core Measure Documentation - Palliative Care Palliative Care/ Comfort Measures: Not Applicable - Core Measures Any of the following diagnoses?: none - VTE Discharge Requirements Deep Vein Thrombosis/Pulmonary Embolism Present on Admission: No Has pt received <5 days of overlap therapy or INR<2.0: No Anticoagulant overlap therapy prescribed at discharge: No Contraindication No Overlap Therapy order at DC: Not Indicated Exam - Physical Exam Narrative exam: Gen: cachetic, NAD, Awake, Alert, Orientated HEENT: NCAT, EOMI, PERRL, OP Clear, severe oriental orthodox muscle wasting Neck: supple, no adenopathy, no thyromegaly, no JVD CVS/Heart: RRR, normal S1S2, pulses present bilaterally Chest/Lungs: CTA B, Symmetrical chest expansion, good air entry bilaterally GI/Abdomen: soft, NTND, good bowel sounds, no guarding or rebound /Bladder: no suprapubic tenderness, no CVA or paraspinal tenderness Extermity/Skin: no c/c/e, no obvious rash MSK: FROM x 4 Neuro: CN 2-12 grossly intact except vision, no new focal deficits Psych: calm - Constitutional Vitals: Temp Pulse Resp BP Pulse Ox 98.9 F 95 H 18 140/85 98 09/16/18 07:06 09/16/18 07:06 09/16/18 07:45 09/16/18 07:06 09/16/18 07:45 Plan Activity: up only with assistance, fall precautions, other (no strenous activity) Diet: diabetic Special Instructions: record blood sugar diary Follow up with: THEODORE TA MD [Primary Care Provider] - 3-5 Days Prescriptions: Insulin Aspart [NovoLOG Flexpen] 1 dose SQ AC PRN #1 pen PRN Reason: Hyperglycemia Insulin Detemir [Levemir Flextouch] 8 unit SQ Q12H #1 pen
[2018-09-16] MEDS: HumaLOG SUB-Q SCH ×2 (10:35→13:46)
[2018-09-16] MEDS: SODIUM CHLORIDE FLUSH SYRINGE 10 ML IV SCH (10:35)
== END 2018-09-16 20:15 | disposition home health service (06) | DRG 637 ==
LOC: ED 16:03 → CC1 18:19 → 2B-ACE 09-14 20:58
PROVIDERS: ADMIT Internal Medicine; ATTEND Internal Medicine
DX: E11.10 Type 2 diabetes mellitus with ketoacidosis without coma (principal); E43 Unspecified severe protein-calorie malnutrition; Z68.1 Body mass index [BMI] 19.9 or less, adult; E11.00 Type 2 diabetes mellitus with hyperosmolarity without nonketotic hyperglycemic-hyperosmolar coma (NKHHC); J45.909 Unspecified asthma, uncomplicated; H54.8 Legal blindness, as defined in USA; E87.6 Hypokalemia; F03.90 Unspecified dementia, unspecified severity, without behavioral disturbance, psychotic disturbance, mood disturbance, and anxiety; Z82.49 Family history of ischemic heart disease and other diseases of the circulatory system; Z83.3 Family history of diabetes mellitus
CPT/HCPCS: 36415; 80048; 80053; 81001; 82962; 83036; 83735; 84100; 85025; 85027; G0378; J1815; J7030

== ENCOUNTER 2020-08-07 16:06 | Inpatient (IN) | payer BC, OTHER ==
--- NOTE | 2020-08-07 16:18 | Emergency Department Report ---
Blank Doc - Documentation Documentation: 70-year-old female that was sent by PCP for worsening weakness. This initial assessment/diagnostic orders/clinical plan/treatment(s) is/are subject to change based on patient's health status, clinical progression and re- assessment by fellow clinical providers in the ED. Further treatment and workup at subsequent clinical providers discretion. Patient/guardians urged not to elope from the ED as their condition may be serious if not clinically assessed and managed. Initial orders include: 1- Patient sent to [facility] for further evaluation and treatment 2- labs 3- UA
--- NOTE | 2020-08-07 16:48 | XRay Report ---
CHEST 2 VIEWS INDICATION / CLINICAL INFORMATION: cough. COMPARISON: None available. FINDINGS: SUPPORT DEVICES: None. HEART / MEDIASTINUM: No significant abnormality. LUNGS / PLEURA: No significant pulmonary or pleural abnormality. No pneumothorax. ADDITIONAL FINDINGS: No significant additional findings. IMPRESSION: 1. No acute findings. Signer Name: Marlo Faye MD Signed: 08/07/2020 4:43 PM Workstation Name: [id number]
[2020-08-07 17:12] LABS: Hematocrit 42.8 % (30.3-42.9); Hemoglobin 14.2 gm/dl (10.1-14.3); Mean Corpuscular HGB Conc 33 % (30-34); Mean Corpuscular Volume 91 fl (79-97); Platelet Count 258 K/mm3 (140-440); Red Cell Distribution Width 14.8 % (13.2-15.2)
[2020-08-07 17:22] LABS: INR 1.06 (0.87-1.13); Partial Thromboplastin Time 26.9 Sec. (24.2-36.6)
[2020-08-07 17:38] LABS: Alanine Aminotransferase 8 units/L (7-56); Albumin 3.8 g/dL (3.9-5); BUN/Creatinine Ratio 10; Blood Urea Nitrogen 9 mg/dL (7-17); Calcium 8.7 mg/dL (8.4-10.2); Hemolysis Index 13
[2020-08-07 17:50] LABS: Total Cells Counted 100
[2020-08-07 17:51] LABS: Basophils % (Manual) 0 % (0.0-1.8); Eosinophils % (Manual) 0 % (0.0-4.3)
[2020-08-07 17:52] LABS: Anisocytosis 1+; Large Platelets Few; Platelet Estimate Consistent w Auto
[2020-08-07] MEDS ORDERED: ONDANSETRON 4 MG/2 ML INJ IV ONE (21:24)
[2020-08-07] MEDS ORDERED: SODIUM CHLORIDE 0.9% 1000 ML 1,000 ML IV ONE (21:24)
--- NOTE | 2020-08-07 21:32 | Emergency Department Report ---
- General Chief complaint: Weakness Stated complaint: WEAKNESS PUI?: No Time Seen by Provider: 08/07/20 16:18 Source: patient Mode of arrival: Wheelchair Limitations: No Limitations - History of Present Illness Initial comments: Patient is a 70-year-old female that presents emergency room for weakness x2 to 3 weeks. Patient states that she is our primary care and he sent her over here to be evaluated. Patient's primary care is Dr. Ta. Patient states that she has been sick for about 2 years because she was diagnosed with bladder cancer and had a surgery to remove the tumor off of her bladder. Patient states she did not do any chemo or radiation. Patient states he got all the cancer with the surgery. He states he also has a history of diabetes and her sugar has been fluctuating. Patient states that for the past 2 to 3 weeks he is also had nausea and vomiting. Patient states she is also had a loss of appetite. Patient states she lost about 30 pounds in 4 weeks. Patient states she is brought in by EMS from her primary care's office. Patient states that EMS checked her sugar and it was 182. Patient denies recent travel. Patient denies recent international travel. Patient denies exposure to the novel coronavirus. Patient denies sick contacts. Patient denies fever and chills. Patient denies cough. Patient denies diarrhe a. Patient denies coming in contact with anybody with symptoms of the novel coronavirus. Complaint: generalized weakness -: Gradual, week(s) Location: generalized Severity: severe Consistency: constant Improves with: rest Worsens with: movement Associated Symptoms: loss of appetite, nausea/vomiting, myalgias. denies: chest pain, confusion, dark stools, diaphoresis, dysuria, easy bruising, fever/chills, headaches, rash, shortness of breath, syncope - Related Data Previous Rx's Medication Instructions Recorded Last Taken Type Insulin Aspart (Nf) [NovoLOG 1 dose SQ AC PRN #1 pen 09/16/18 Unknown Rx Flexpen] Insulin Detemir (Nf) [Levemir 8 unit SQ Q12H #1 pen 09/16/18 Unknown Rx Flextouch] Allergies Allergy/AdvReac Type Severity Reaction Status Date / Time No Known Allergies Allergy Unverified 09/13/18 16:10 ED Review of Systems ROS: Stated complaint: WEAKNESS Other details as noted in HPI Constitutional: weakness. denies: chills, fever Eyes: denies: eye pain, eye discharge, vision change ENT: denies: ear pain, throat pain Respiratory: denies: cough, shortness of breath, wheezing Cardiovascular: denies: chest pain, palpitations Endocrine: see HPI, unexplained weight loss Gastrointestinal: abdominal pain, nausea, vomiting, constipation. denies: diarrhea, hematemesis, melena, hematochezia Genitourinary: denies: urgency, dysuria, discharge Musculoskeletal: denies: back pain, joint swelling, arthralgia Skin: denies: rash, lesions Neurological: weakness. denies: headache, paresthesias Psychiatric: denies: anxiety, depression Hematological/Lymphatic: denies: easy bleeding, easy bruising ED Past Medical Hx - Past Medical History Previous Medical History?: Yes Hx Diabetes: Yes Hx Asthma: Yes Additional medical history: Legally Blind, bladder CA - Surgical History Past Surgical History?: Yes Additional Surgical History: Bladder surgery for bladder cancer removal and fibroid removal - Family History Family history: no significant - Social History Smoking Status: Never Smoker Substance Use Type: None - Medications Home Medications: Home Medications Medication Instructions Recorded Confirmed Last Taken Type Insulin Aspart (Nf) [NovoLOG 1 dose SQ AC PRN #1 pen 09/16/18 Unknown Rx Flexpen] Insulin Detemir (Nf) [Levemir 8 unit SQ Q12H #1 pen 09/16/18 Unknown Rx Flextouch] ED Physical Exam - General Limitations: No Limitations General appearance: alert, in no apparent distress - Head Head exam: Present: atraumatic, normocephalic - Eye Eye exam: Present: normal appearance - ENT ENT exam: Present: mucous membranes dry - Neck Neck exam: Present: normal inspection - Respiratory Respiratory exam: Present: normal lung sounds bilaterally. Absent: respiratory distress, wheezes, rales - Cardiovascular Cardiovascular Exam: Present: regular rate, normal rhythm. Absent: systolic murmur, diastolic murmur, rubs, gallop - GI/Abdominal GI/Abdominal exam: Present: soft, tenderness, normal bowel sounds - Rectal Rectal exam: Present: deferred - Extremities Exam Extremities exam: Present: normal inspection - Back Exam Back exam: Present: normal inspection - Neurological Exam Neurological exam: Present: alert, oriented X3 - Psychiatric Psychiatric exam: Present: normal affect, normal mood - Skin Skin exam: Present: warm, dry, intact, normal color. Absent: rash - Assessment Assessment Interval: Baseline - Level of Consciousness 1a. Level of Consciousness: alert/keenly responsive - LOC Questions 1b. LOC Questions: answers both correctly - LOC Command 1c. LOC Commands: performs tasks correctly - Best Gaze 2. Best Gaze: normal - Visual 3. Visual: no visual loss - Facial Palsy 4. Facial Palsy: normal symmetrical movement - Motor Arm 5a. Motor Arm Left: no drift 5b. Motor Arm Right: no drift - Motor Leg 6a. Motor Leg Left: no drift 6b. Motor Leg Right: no drift - Limb Ataxia 7. Limb Ataxia: absent - Sensory 8. Sensory: normal - Best Language 9. Best Language: no aphasia - Dysarthria 10. Dysarthria: normal - Extinction and Inattention 11. Extinction/Inattention: no abnormality - Scoring Total Score: 0 Stroke Severity: No Stroke Symptoms ED Course Vital Signs 08/07/20 08/07/20 16:19 21:50 Temperature 97.3 F L Pulse Rate 90 74 Respiratory 16 15 Rate Blood Pressure 110/69 136/73 [Right] O2 Sat by Pulse 98 100 Oximetry - Reevaluation(s) Reevaluation #1: I discussed all results with patient. I discussed plan of care with patient. Patient agrees with plan of care and admission. Patient to be admitted to the hospitalist service. 08/07/20 23:35 - Consultations Consultation #1: I discussed the case with Dr. Townsend, general surgery. Dr. Townsend states she will follow the patient. 08/07/20 23:29 Consultation #2: Hospitalist consulted for admission. Hospitalist to admit patient. Hospitalist wants Covid panel placed and ID consult placed. 08/07/20 23:35 Consultation #3: ID consulted. 08/07/20 23:35 ED Medical Decision Making - Lab Data Result diagrams: 08/07/20 17:01 08/07/20 17:01 - Radiology Data Radiology results: report reviewed CHEST 2 VIEWS INDICATION / CLINICAL INFORMATION: cough. COMPARISON: None available. FINDINGS: SUPPORT DEVICES: None. HEART / MEDIASTINUM: No significant abnormality. LUNGS / PLEURA: No significant pulmonary or pleural abnormality. No pneumothorax. ADDITIONAL FINDINGS: No significant additional findings. IMPRESSION: 1. No acute findings. CT ABDOMEN AND PELVIS WITH CONTRAST INDICATION: abd pain. n/v CONTRAST: 100 cc Omnipaque 300 IV COMPARISON: None available. All CT scans at this location are performed using CT dose reduction for ALARA by means of automated exposure control. FINDINGS: Lung bases show mild chronic changes. Mild patchy focal increased interstitial markings are seen mostly in the right lower lobe but minimally in the left lower lobe. Small right pleural effusion is noted. Small pericardial effusion is seen. No pneumoperitoneum is seen. No significant abdominal wall herniation is noted. Mild diffuse subcutaneous edema is seen. Diffuse edema is seen throughout the abdomen and pelvis as well. Mild ascites is seen. No definite lymphadenopathy is seen. Multiple cysts and probable cysts are seen throughout the liver. Large cyst arises from the lower pole of the right kidney measuring 4.7 cm. No other masses are seen. No urinary obstructive changes are noted. Gallbladder shows gallstones and is mildly contracted but no obvious wall thickening is seen. No biliary dilatation is noted. No evidence of bowel obstruction is noted. In the right lower quadrant of the abdomen far lateral position lateral to the proximal colon stranding is noted which is thought partially due to fluid in the paracolic gutter but there is a suggestion of at least a short segment of a tubular structure measuring approximately 9 mm in diameter. This is well above the cecum however though possibly could represent the distal appendix. No other visualization of the appendix is made. IMPRESSION: 1. Patchy interstitial possible pneumonic infiltrate is seen in the lung bases, particularly in the right lower lobe 2. Evidence of mild anasarca with edema in the subcutaneous tissues and internally as well as mild ascites, small pericardial effusion, and a small right pleural effusion 3. Stranding in the right lateral paracolic region as above with a questionable visualization of a tubular structure. I do not strongly favor this being the appendix but a distal expansion of the a ppendix with surrounding inflammation is not fully excluded. Edema throughout the area and artifact makes evaluation difficult. Clinical correlation for the possibility of acute appendicitis is suggested however and follow-up CT may be useful. 4. Cholelithiasis without acute change seen - Medical Decision Making Patient is a 70-year-old female that presents emergency room with complaints of intractable nausea vomiting, weight loss and weakness and abdominal pain. Patient has generalized weakness. Patient NIH scale is negative. Patient had labs done which showed a low WBC and slight electrolyte imbalances. Patient given fluids in the ER. Patient had a CT scan for the abdominal pain to rule out obstruction since patient complained of nausea vomiting and constipation. Patient's abdominal CT was positive for anasarca, right-sided pneumonia, edema, pleural effusion, pericardial effusion, colitis, findings consistent with a possible appendicitis. General surgery consulted. Patient admitted to the hospital service for evaluation treatment. Patient given Zosyn for colitis and pneumonia. Covid panel ordered and ID was consulted per hospitalist request. - Differential Diagnosis Weakness, weight loss, dehydration, electrolyte balance, abdominal pain Critical Care Time: Yes Critical care time in (mins) excluding proc time.: 35 Critical care attestation.: If time is entered above; I have spent that time in minutes in the direct care of this critically ill patient, excluding procedure time. Critical Care Time: 35 minutes ED Disposition Clinical Impression: Hyperglycemia, Colitis, Anasarca, Weakness Nausea & vomiting Qualifiers: Vomiting type: unspecified Vomiting Intractability: intractable Qualified Code(s): R11.2 - Nausea with vomiting, unspecified Abdominal pain Qualifiers: Abdominal location: generalized Qualified Code(s): R10.84 - Generalized abdominal pain Pneumonia Qualifiers: Pneumonia type: due to unspecified organism Laterality: right Lung location: lower lobe of lung Qualified Code(s): J18.9 - Pneumonia, unspecified organism Disposition: -09 OP ADMIT IP TO THIS HOSP Is pt being admited?: Yes Does the pt Need Aspirin: No Condition: Critical Instructions: Bacterial Pneumonia (ED) Time of Disposition: 23:30
--- NOTE | 2020-08-07 23:08 | Cat Scan Report ---
CT ABDOMEN AND PELVIS WITH CONTRAST INDICATION: abd pain. n/v CONTRAST: 100 cc Omnipaque 300 IV COMPARISON: None available. All CT scans at this location are performed using CT dose reduction for ALARA by means of automated e xposure control. FINDINGS: Lung bases show mild chronic changes. Mild patchy focal increased interstitial markings are seen mostly in the right lower lobe but minimally in the left lower lobe. Small right pleural effusi on is noted. Small pericardial effusion is seen. No pneumoperitoneum is seen. No significant abdominal wall herniation is noted. Mild diffuse subcutan eous edema is seen. Diffuse edema is seen throughout the abdomen and pelvis as well. Mild ascites is seen. No definite lymphadenopathy is seen. Multiple cysts and probable cysts are seen throughout the liver. Large cyst arises from the lower pole of the right kidney measuring 4.7 cm. No other masses are seen . No urinary obstructive changes are noted. Gallbladder shows gallstones and is mildly contracted but n o obvious wall thickening is seen. No biliary dilatation is noted. No evidence of bowel obstruction is noted. In the right lower quadrant of the abdomen far lateral pos ition lateral to the proximal colon stranding is noted which is thought partially due to fluid in the paracolic gutter but there is a suggestion of at least a short segment of a tubular structure measur ing approximately 9 mm in diameter. This is well above the cecum however though possibly could repres ent the distal appendix. No other visualization of the appendix is made. IMPRESSION: 1. Patchy interstitial possible pneumonic infiltrate is seen in the lung bases, particularly in the r ight lower lobe 2. Evidence of mild anasarca with edema in the subcutaneous tissues and internally as well as mild as cites, small pericardial effusion, and a small right pleural effusion 3. Stranding in the right lateral paracolic region as above with a questionable visualization of a tu bular structure. I do not strongly favor this being the appendix but a distal expansion of the append ix with surrounding inflammation is not fully excluded. Edema throughout the area and artifact makes evaluation difficult. Clinical correlation for the possibility of acute appendicitis is suggested how ever and follow-up CT may be useful. 4. Cholelithiasis without acute change seen Signer Name: Feliberto Duggan MD Signed: 08/07/2020 11:03 PM Workstation Name: [id number]
[2020-08-07] MEDS ORDERED: CEFEPIME/NS 2 GM/100 ML 2 GM/100 ML BAG IV ONE (23:30)
[2020-08-07] MEDS ORDERED: PIPERACIL/TAZOBACTA 4.5/NS 100 4.5 GM/100 ML VIAL IV ONE (23:33)
[2020-08-08] MEDS ORDERED: DEXTROSE 50% IN WATER (25GM) 50 ML SYRINGE IV PRN (00:06)
[2020-08-08] MEDS ORDERED: MORPHINE 2 MG/1 ML INJ IV PRN (00:06)
[2020-08-08] MEDS ORDERED: MAGNESIUM HYDROXIDE (MOM) ORAL LIQD UDC PO PRN (00:06)
[2020-08-08] MEDS ORDERED: ACETAMINOPHEN 325 MG TAB PO PRN (00:06)
--- NOTE | 2020-08-08 00:19 | History and Physical Report ---
History of Present Illness Date of examination: 08/08/20 Date of admission: 08/08/2020 Chief complaint: Generalized weakness Nausea and Vomiting History of present illness: 89-year-old female with significant history of blood reconcile status post surgery in the past, diabetes mellitus, asthma, presenting to the emergency room today from her primary care physician's office Dr. Ta for generalized weakness which has been ongoing for 2 to 3 weeks. Patient was also indicates that her blood sugar has been fluctuating lately. She has been having nausea and vomiting over the past few weeks, loss of appetite and has had about 30 pounds weight loss in about 4 weeks. Patient also indicates that she has been having cough productive of some sputum- color is unknown. She denies any fever or chills, denies any chest pain or shortness of breath. Patient denies any sick contacts and no recent travel. Denies any contact with anyone with COVID-19. Work-up in the emergency room CT of the abdomen and pelvis was concerning for right lower lobe pneumonia, colitis and possible underlying appendicitis. General surgeon Dr. Townsend was consulted for evaluation of the appendicitis. Patient has been admitted with pneumonia and possible underlying appendicitis. She has been started on empiric IV antibiotics and will also be ruled out for COVID-19. Past History Past Medical History: diabetes, other (History of bladder cancer, legally blind, asthma) Past Surgical History: hysterectomy, Other (Bladder surgery secondary to bladder cancer) Social history: no significant social history Family history: no significant family history Medications and Allergies Allergies Allergy/AdvReac Type Severity Reaction Status Date / Time No Known Allergies Allergy Unverified 09/13/18 16:10 Home Medications Medication Instructions Recorded Confirmed Last Taken Type Insulin Aspart (Nf) [NovoLOG 1 dose SQ AC PRN #1 pen 09/16/18 Unknown Rx Flexpen] Insulin Detemir (Nf) [Levemir 8 unit SQ Q12H #1 pen 09/16/18 Unknown Rx Flextouch] Active Meds: Active Medications Acetaminophen (Acetaminophen 325 Mg Tab) 650 mg PO Q4H PRN PRN Reason: Pain MILD(1-3)/Fever >100.5/WADE Dextrose (Dextrose 50% In Water (25gm) 50 Ml Syringe) 50 ml IV Q30MIN PRN; Protocol PRN Reason: Hypoglycemia Magnesium Hydroxide (Magnesium Hydroxide (Mom) Oral Liqd Udc) 30 ml PO Q4H PRN PRN Reason: Constipation Morphine Sulfate (Morphine 2 Mg/1 Ml Inj) 2 mg IV Q4H PRN PRN Reason: Pain, Moderate (4-6) Ondansetron HCl (Ondansetron 4 Mg/2 Ml Inj) 4 mg IV Q8H PRN PRN Reason: Nausea And Vomiting Sodium Chloride (Sodium Chloride 0.9% 10 Ml Flush Syringe) 10 ml IV BID [place] Sodium Chloride (Sodium Chloride 0.9% 10 Ml Flush Syringe) 10 ml IV PRN PRN PRN Reason: LINE FLUSH Review of Systems Constitutional: weakness, no fever, no chills Ears, nose, mouth and throat: no nasal congestion, no sore throat Cardiovascular: no chest pain, no palpitations Respiratory: cough, cough with sputum, no shortness of breath Gastrointestinal: abdominal pain, nausea, vomiting, no diarrhea, no hematemesis, no coffee ground emesis Genitourinary Female: no pelvic pain, no flank pain, no dysuria, no hematuria Musculoskeletal: no neck pain, no low back pain Integumentary: no rash, no pruritis Neurological: no headaches, no confusion Psychiatric: no anxiety, no depression Exam - Constitutional Vitals: Temp Pulse Resp BP Pulse Ox 97.3 F L 74 15 136/73 100 08/07/20 16:19 08/07/20 21:50 08/07/20 21:50 08/07/20 21:50 08/07/20 21:50 General appearance: Present: no acute distress, well-nourished - EENT Eyes: Present: PERRL, EOM intact. Absent: scleral icterus ENT: hearing intact, clear oral mucosa, dentition normal - Neck Neck: Present: supple, normal ROM - Respiratory Respiratory effort: normal Respiratory: bilateral: CTA - Cardiovascular Rhythm: regular Heart Sounds: Present: S1 & S2. Absent: gallop, systolic murmur, diastolic murmur, rub, click - Extremities Extremities: no ischemia, pulses intact, pulses symmetrical, No edema, normal temperature, normal color, Full ROM Peripheral Pulses: within normal limits - Abdominal General gastrointestinal: Present: soft, tender (Mild epigastric tenderness), non-distended, normal bowel sounds. Absent: mass - Integumentary Integumentary: Present: clear, warm, dry. Absent: rash - Musculoskeletal Musculoskeletal: strength equal bilaterally - Psychiatric Psychiatric: appropriate mood/affect, intact judgment & insight, memory intact, cooperative - Neurologic Neurologic: CNII-XII intact, no focal deficits, moves all extremities HEART Score - HEART Score Troponin: Troponin T 0.013 ng/mL (0.00-0.029) 08/07/20 17:01 Results - Labs CBC & Chem 7: 08/08/20 10:05 08/07/20 23:47 Labs: Abnormal lab results 08/07/20 08/07/20 Range/Units 17:01 17:01 WBC 2.9 L (4.5-11.0) K/mm3 Monocytes % (Manual) 10.0 H (0.0-7.3) % Lymphocytes # (Manual) 0.7 L (1.2-5.4) K/mm3 Potassium 3.2 L (3.6-5.0) mmol/L Chloride 97.0 L (98-107) mmol/L Glucose 217 H (65-100) mg/dL Magnesium 1.50 L (1.7-2.3) mg/dL Albumin 3.8 L (3.9-5) g/dL Assessment and Plan - Patient Problems (1) Pneumonia Current Visit: Yes Status: Acute Qualifiers: Pneumonia type: due to unspecified organism Laterality: right Lung location: lower lobe of lung Qualified Code(s): J18.9 - Pneumonia, unspecified organism Plan to address problem: Patient placed on empiric IV antibiotics. We will await culture results. (2) Suspected 2019 novel coronavirus infection Current Visit: Yes Status: Acute Plan to address problem: Patient will be placed on isolation precautions. Will await COVID-19 testing. Consult placed to infectious disease for evaluation. (3) Nausea & vomiting Current Visit: Yes Status: Acute Qualifiers: Vomiting type: unspecified Vomiting Intractability: intractable Qualified Code(s): R11.2 - Nausea with vomiting, unspecified Plan to address problem: Patient placed on IV Zofran as needed. (4) Diabetes Current Visit: No Status: Acute Plan to address problem: We will monitor Accu-Cheks closely. Patient placed on sliding scale for good glycemic control. (5) DVT prophylaxis Current Visit: No Status: Acute Plan to address problem: Patient placed on subcutaneous Lovenox. (6) Full code status Current Visit: Yes Status: Acute Plan to address problem: Patient is full code.
[2020-08-08 00:36] LABS: C-Reactive Protein 1.2 mg/dL (0.00-1.30)
[2020-08-08 03:01] LABS: Bilirubin,Urine NEG (Negative); Blood,Urine NEG (Negative); Color,Urine Yellow (Yellow); Mucus,Urine FEW /HPF; Protein,Urine <15 mg/dL mg/dL (Negative)
[2020-08-08] MEDS: ONDANSETRON 4 MG/2 ML INJ IV PRN (03:26)
[2020-08-08] MEDS: PIPERACIL/TAZOBACTA 4.5/NS 100 4.5 GM/100 ML VIAL IV SCH ×3 (08:00→23:49)
[2020-08-08] MEDS ORDERED: hydrALAZINE 20 MG/1 ML INJ IV PRN (08:05)
[2020-08-08] MEDS ORDERED: MAGNESIUM SULFATE 2 GM/50 ML BAG IV ONE (09:00)
[2020-08-08] MEDS ORDERED: D5W/0.9% NACL 1,000 ML IV SCH (09:00)
[2020-08-08 11:02] LABS: Hematocrit 36.1 % (30.3-42.9); Hemoglobin 11.9 gm/dl (10.1-14.3); Mean Corpuscular HGB Conc 33 % (30-34); Mean Corpuscular Volume 90 fl (79-97); Platelet Count 224 K/mm3 (140-440); Red Cell Distribution Width 14.6 % (13.2-15.2)
[2020-08-08] MEDS: carvediloL 3.125 MG TAB PO SCH ×2 (12:31→22:04)
--- NOTE | 2020-08-08 14:07 | Event Note ---
Date: 08/08/20 Patient seen and examined Work-up in the emergency room CT of the abdomen and pelvis was concerning for right lower lobe pneumonia/COVID-19 PUI, colitis and possible underlying appendicitis. Patient has been admitted with pneumonia and possible underlying appendicitis. Continue empiric antibiotics, COVID-19 test result is pending Keep n.p.o. for now continue IV fluid hydration, follow general surgery recommendation
--- NOTE | 2020-08-08 14:14 | Consultation ---
History of Present Illness - Reason for Consult Consult date: 08/08/20 R/o COVID Requesting physician: DEBI ALVARADO III - History of Present Illness 70 years old female with history of diabetes mellitus, asthma, secondary to 2 to 3 weeks history of generalized weakness, cough, fluctuating blood sugar, nausea, vomiting, loss of appetite. Patient reports 4 weeks of 30 pounds weight loss. On arrival, temperature 97.3, HR 90, RA 16, O2 sat 98%, BP 110/69. Initial WBC 2.9. D-dimer 918. Ferritin 528. Creatinine 0.9. CRP 1.2. Procalcitonin low. Urinalysis negative. Blood cultures 08/08/2020 pending. Chest x-ray unremarkable. CT of the abdomen shows patchy interstitial airspace disease bilaterally, anasarca with edema in the subcutaneous tissue, stranding of the right lateral paracolic region? Appendix. Patient currently on room air. Review of Systems: reviewed ED and H&P notes. Review of system deferred to minimize COVID-19 transmission. Past History Past Medical History: diabetes, other (History of bladder cancer, legally blind, asthma) Past Surgical History: hysterectomy, Other (Bladder surgery secondary to bladder cancer) Social history: no significant social history Family history: no significant family history Medications and Allergies Allergies Allergy/AdvReac Type Severity Reaction Status Date / Time No Known Allergies Allergy Unverified 09/13/18 16:10 Home Medications Medication Instructions Recorded Confirmed Last Taken Type Insulin Aspart (Nf) [NovoLOG 1 dose SQ AC PRN #1 pen 09/16/18 Unknown Rx Flexpen] Insulin Detemir (Nf) [Levemir 8 unit SQ Q12H #1 pen 09/16/18 Unknown Rx Flextouch] Active Meds: Active Medications Acetaminophen (Acetaminophen 325 Mg Tab) 650 mg PO Q4H PRN PRN Reason: Pain MILD(1-3)/Fever >100.5/WADE Carvedilol (Carvedilol 3.125 Mg Tab) 3.125 mg PO BID [facility] Last Admin: 08/08/20 12:31 Dose: 3.125 mg Documented by: Dextrose (Dextrose 50% In Water (25gm) 50 Ml Syringe) 0 ml IV Q30MIN PRN; Protocol PRN Reason: Hypoglycemia Docusate Sodium (Docusate Sodium 100 Mg Cap) 100 mg PO BID [facility] Enoxaparin Sodium (Enoxaparin 40 Mg/0.4 Ml Inj) 40 mg SUB-Q QDAY@2200 [facility]; Protocol Hydralazine HCl (Hydralazine 20 Mg/1 Ml Inj) 10 mg IV Q4HR PRN PRN Reason: Hypertension Piperacillin Sod/Tazobactam Sod (Zosyn/Ns 4.5gm/100ml) 4.5 gm in 100 mls @ 200 mls/hr IV Q8H [facility]; Protocol Last Admin: 08/08/20 08:00 Dose: 200 mls/hr Documented by: Dextrose/Sodium Chloride (D5ns) 1,000 mls @ 42 mls/hr IV DIRECT [facility] Last Admin: 08/08/20 10:46 Dose: 42 mls/hr Documented by: Magnesium Hydroxide (Magnesium Hydroxide (Mom) Oral Liqd Udc) 30 ml PO Q4H PRN PRN Reason: Constipation Morphine Sulfate (Morphine 2 Mg/1 Ml Inj) 2 mg IV Q4H PRN PRN Reason: Pain, Moderate (4-6) Ondansetron HCl (Ondansetron 4 Mg/2 Ml Inj) 4 mg IV Q8H PRN PRN Reason: Nausea And Vomiting Last Admin: 08/08/20 03:26 Dose: 4 mg Documented by: Sodium Chloride (Sodium Chloride 0.9% 10 Ml Flush Syringe) 10 ml IV BID [facility] Last Admin: 08/08/20 10:48 Dose: 10 ml Documented by: Sodium Chloride (Sodium Chloride 0.9% 10 Ml Flush Syringe) 10 ml IV PRN PRN PRN Reason: LINE FLUSH Physical Examination - Physical Exam Narrative exam: Physical exam deferred to minimize COVID-19 transmission during pandemic. ER and internal medicine physical examination notes reviewed. - Constitutional Vitals: Vital Signs Temp Pulse Resp BP Pulse Ox 98.7 F 77 18 173/87 98 08/08/20 05:35 08/08/20 12:31 08/08/20 05:35 08/08/20 12:31 08/08/20 05:35 Temperature -Last 24 Hours Temperature 98.7 F Temperature 97.7 F Temperature 97.3 F Results - Labs CBC & Chem 7: 08/08/20 10:05 08/07/20 23:47 Labs: Abnormal lab results 0108/07/20 08/07/20 Range/Units 17:01 17:01 23:47 WBC 2.9 L (4.5-11.0) K/mm3 Monocytes % (Manual) 10.0 H (0.0-7.3) % Lymphocytes # (Manual) 0.7 L (1.2-5.4) K/mm3 D-Dimer 918.43 H (0-234) ng/mlDDU Potassium 3.2 L (3.6-5.0) mmol/L Chloride 97.0 L (98-107) mmol/L Glucose 217 H (65-100) mg/dL Magnesium 1.50 L (1.7-2.3) mg/dL Ferritin (10.0-200.0) ng/mL Lactate Dehydrogenase (91-180) units/L Albumin 3.8 L (3.9-5) g/dL 08/07/20 08/07/20 08/08/20 Range/Units 23:47 23:47 10:05 WBC 3.3 L (4.5-11.0) K/mm3 Monocytes % (Manual) (0.0-7.3) % Lymphocytes # (Manual) (1.2-5.4) K/mm3 D-Dimer (0-234) ng/mlDDU Potassium (3.6-5.0) mmol/L Chloride (98-107) mmol/L Glucose 183 H (65-100) mg/dL Magnesium (1.7-2.3) mg/dL Ferritin 528.1 H (10.0-200.0) ng/mL Lactate Dehydrogenase 279 H (91-180) units/L Albumin (3.9-5) g/dL Assessment and Plan Cultures: Blood culture pending SARS CoV2 PCR pending Assessment: 70 years old female with history of diabetes mellitus, asthma, secondary to 2 to 3 weeks history of generalized weakness, cough, fluctuating blood sugar, nausea, vomiting, loss of appetite: #Bilateral pneumonia: Seen on CT of abdomen. Inflammatory markers for Covid slightly elevated. Patient is on room air. #Nausea, vomiting, anorexia: Of unclear etiology. Abdominal CT abnormal with a possible stranding of the right lateral paracolic region ? Appendicitis. Normal WBC. Minimally elevated CRP. Procalcitonin is low. #Diabetes mellitus: With hyperglycemia. Recommendations: -Agree with surgical consult -Continue Zosyn IV for now, likely stop soon if appendicitis is ruled out -Follow-up SARS-CoV-2 PCR -No indication for dexamethasone as patient is not hypoxic -Monitor inflammatory markers - ferritin, Ddimer, CRP, LDH All laboratory, cultures and imaging were reviewed. Will follow Candace Munoz MD Infectious Diseases [facility] M [phone] O [phone]
--- NOTE | 2020-08-08 14:29 | Consultation ---
History of Present Illness Consult date: 08/08/20 Chief complaint: abdominal pain - History of present illness History of present illness: 70 yo F with hx of bladder ca s/p laparoscopic resection who presents to ER as a referral from her PCP for abdominal pain, generalized weakness, n/v. The patient states these symptoms have been present for several months to 1 year. She had surgery for a tumor on her bladder last Aug at [facility] and states that since then she has had vague abdominal pain in the right lower abdomen at the site of surgery. She has also had a poor appetite with intermittent n/v. She has lost weight over the last year due to these symptoms. She also felt she may have bronchitis. No sick contacts. No f/c, cp, sob. She is hungry. She is having BMs and passing flatus. Gen surgery consulted in ER due to abnormal CT scan findings, r/o appendicitis Past History Past Medical History: diabetes, other (History of bladder cancer, legally blind, asthma) Past Surgical History: hysterectomy, Other (Bladder surgery secondary to bladder cancer, excision mass of left kidney) Social history: no significant social history Family history: no significant family history Medications and Allergies Allergies Allergy/AdvReac Type Severity Reaction Status Date / Time No Known Allergies Allergy Unverified 09/13/18 16:10 Home Medications Medication Instructions Recorded Confirmed Last Taken Type Insulin Aspart (Nf) [NovoLOG 1 dose SQ AC PRN #1 pen 09/16/18 Unknown Rx Flexpen] Insulin Detemir (Nf) [Levemir 8 unit SQ Q12H #1 pen 09/16/18 Unknown Rx Flextouch] Active Meds: Active Medications Acetaminophen (Acetaminophen 325 Mg Tab) 650 mg PO Q4H PRN PRN Reason: Pain MILD(1-3)/Fever >100.5/WADE Carvedilol (Carvedilol 3.125 Mg Tab) 3.125 mg PO BID [facility] Last Admin: 08/08/20 12:31 Dose: 3.125 mg Documented by: Dextrose (Dextrose 50% In Water (25gm) 50 Ml Syringe) 0 ml IV Q30MIN PRN; Protocol PRN Reason: Hypoglycemia Docusate Sodium (Docusate Sodium 100 Mg Cap) 100 mg PO BID [facility] Enoxaparin Sodium (Enoxaparin 40 Mg/0.4 Ml Inj) 40 mg SUB-Q QDAY@2200 [facility]; Protocol Hydralazine HCl (Hydralazine 20 Mg/1 Ml Inj) 10 mg IV Q4HR PRN PRN Reason: Hypertension Piperacillin Sod/Tazobactam Sod (Zosyn/Ns 4.5gm/100ml) 4.5 gm in 100 mls @ 200 mls/hr IV Q8H [facility]; Protocol Last Admin: 08/08/20 08:00 Dose: 200 mls/hr Documented by: Dextrose/Sodium Chloride (D5ns) 1,000 mls @ 42 mls/hr IV DIRECT [facility] Last Admin: 08/08/20 10:46 Dose: 42 mls/hr Documented by: Magnesium Hydroxide (Magnesium Hydroxide (Mom) Oral Liqd Udc) 30 ml PO Q4H PRN PRN Reason: Constipation Morphine Sulfate (Morphine 2 Mg/1 Ml Inj) 2 mg IV Q4H PRN PRN Reason: Pain, Moderate (4-6) Ondansetron HCl (Ondansetron 4 Mg/2 Ml Inj) 4 mg IV Q8H PRN PRN Reason: Nausea And Vomiting Last Admin: 08/08/20 03:26 Dose: 4 mg Documented by: Sodium Chloride (Sodium Chloride 0.9% 10 Ml Flush Syringe) 10 ml IV BID [facility] Last Admin: 08/08/20 10:48 Dose: 10 ml Documented by: Sodium Chloride (Sodium Chloride 0.9% 10 Ml Flush Syringe) 10 ml IV PRN PRN PRN Reason: LINE FLUSH Review of Systems All systems: negative (10 Pt ROS performed and negative except for that listed in HPI) Exam Vital Signs Temp Pulse Resp BP Pulse Ox 97.3 F L 90 16 110/69 98 08/07/20 16:19 08/07/20 16:19 08/07/20 16:19 08/07/20 16:19 08/07/20 16:19 Narrative exam: Gen: AAOx3. NAD ENT: no scleral icterus. temporal wasting CV: S1, S2+ Resp: even and unlabored Abd: soft, ND, mild discomfort on palpation of right groin area. No r/r/g. Well healed surgical scars. Ext: no c/c/e Results - Labs 08/08/20 10:05 08/07/20 23:47 Abnormal lab results 08/07/20 08/07/20 08/07/20 Range/Units 17:01 17:01 23:47 WBC 2.9 L (4.5-11.0) K/mm3 Monocytes % (Manual) 10.0 H (0.0-7.3) % Lymphocytes # (Manual) 0.7 L (1.2-5.4) K/mm3 D-Dimer 918.43 H (0-234) ng/mlDDU Potassium 3.2 L (3.6-5.0) mmol/L Chloride 97.0 L (98-107) mmol/L Glucose 217 H (65-100) mg/dL Magnesium 1.50 L (1.7-2.3) mg/dL Ferritin (10.0-200.0) ng/mL Lactate Dehydrogenase (91-180) units/L Albumin 3.8 L (3.9-5) g/dL 08/07/20 08/07/20 08/08/20 Range/Units 23:47 23:47 10:05 WBC 3.3 L (4.5-11.0) K/mm3 Monocytes % (Manual) (0.0-7.3) % Lymphocytes # (Manual) (1.2-5.4) K/mm3 D-Dimer (0-234) ng/mlDDU Potassium (3.6-5.0) mmol/L Chloride (98-107) mmol/L Glucose 183 H (65-100) mg/dL Magnesium (1.7-2.3) mg/dL Ferritin 528.1 H (10.0-200.0) ng/mL Lactate Dehydrogenase 279 H (91-180) units/L Albumin (3.9-5) g/dL Diabetes panel 08/07/20 08/07/20 Range/Units 17:01 23:47 Sodium 141 (137-145) mmol/L Potassium 3.2 L (3.6-5.0) mmol/L Chloride 97.0 L (98-107) mmol/L Carbon Dioxide 29 (22-30) mmol/L BUN 9 (7-17) mg/dL Creatinine 0.9 (0.6-1.2) mg/dL Glucose 217 H 183 H (65-100) mg/dL Calcium 8.7 (8.4-10.2) mg/dL AST 15 (5-40) units/L ALT 8 (7-56) units/L Alkaline Phosphatase 54 (35-129) units/L Total Protein 7.0 (6.3-8.2) g/dL Albumin 3.8 L (3.9-5) g/dL Calcium panel 08/07/20 Range/Units 17:01 Calcium 8.7 (8.4-10.2) mg/dL Albumin 3.8 L (3.9-5) g/dL Pituitary panel 08/07/20 08/07/20 Range/Units 17:01 23:47 Sodium 141 (137-145) mmol/L Potassium 3.2 L (3.6-5.0) mmol/L Chloride 97.0 L (98-107) mmol/L Carbon Dioxide 29 (22-30) mmol/L BUN 9 (7-17) mg/dL Creatinine 0.9 (0.6-1.2) mg/dL Glucose 217 H 183 H (65-100) mg/dL Calcium 8.7 (8.4-10.2) mg/dL Adrenal panel 08/07/20 08/07/20 Range/Units 17:01 23:47 Sodium 141 (137-145) mmol/L Potassium 3.2 L (3.6-5.0) mmol/L Chloride 97.0 L (98-107) mmol/L Carbon Dioxide 29 (22-30) mmol/L BUN 9 (7-17) mg/dL Creatinine 0.9 (0.6-1.2) mg/dL Glucose 217 H 183 H (65-100) mg/dL Calcium 8.7 (8.4-10.2) mg/dL Total Bilirubin 1.20 (0.1-1.2) mg/dL AST 15 (5-40) units/L ALT 8 (7-56) units/L Alkaline Phosphatase 54 (35-129) units/L Total Protein 7.0 (6.3-8.2) g/dL Albumin 3.8 L (3.9-5) g/dL - Imaging CT scan - abdomen: report reviewed, image reviewed CT scan - pelvis: report reviewed, image reviewed Assessment and Plan 70 yo F with 1. abdominal pain 2. PNA Pt stable. Ct scan A/P reviewed with in house radiologist and no evidence of inflammation in RLQ or appendicitis. Clinical history also is not consistent with appendicitis. Plan: 1. Reg diet 2. IVF 3. abx per ID, 1' service 4. OOB/ambulate 5. stool softener 6. no surgical intervention indicated Will s/o Thank you, please call with questions. Evaluation and treatment of this patient was during the time of the national and state emergency arising from COVID19 coronavirus pandemic. Treatment and procedures performed meet the current and available best practice and guidelines for patient during the COVID pandemic.
[2020-08-08] MEDS ORDERED: SODIUM CHLORIDE 0.9% 1000 ML 1,000 ML IV SCH (16:30)
[2020-08-08] MEDS: INSULIN REGULAR, HUMAN 100 UNITS/1 ML SUB-Q SCH ×3 (16:30→22:06)
[2020-08-08] MEDS ORDERED: POTASSIUM CHLORIDE ER 20 MEQ TAB PO ONE (17:00)
[2020-08-08] MEDS: LATANOPROST 0.005% OPHTH SOLN 2.5 ML OU SCH (19:50)
[2020-08-08] MEDS: DOCUSATE SODIUM 100 MG CAP PO SCH (22:05)
[2020-08-08] MEDS: ENOXAPARIN 40 MG/0.4 ML INJ SUB-Q SCH (22:05)
[2020-08-09 06:03] LABS: Hematocrit 35.3 % (30.3-42.9); Hemoglobin 11.5 gm/dl (10.1-14.3); Mean Corpuscular HGB Conc 33 % (30-34); Mean Corpuscular Volume 91 fl (79-97); Platelet Count 202 K/mm3 (140-440); Red Blood Count 3.88 M/mm3 (3.65-5.03); Red Cell Distribution Width 14.8 % (13.2-15.2)
[2020-08-09 06:08] LABS: INR 1.12 (0.87-1.13)
[2020-08-09 06:21] LABS: BUN/Creatinine Ratio 10; Blood Urea Nitrogen 9 mg/dL (7-17); Calcium 7.8 mg/dL (8.4-10.2); Hemolysis Index 0
[2020-08-09 08:15] LABS: Total Cells Counted 100
[2020-08-09 08:16] LABS: Anisocytosis 1+; Platelet Estimate Consistent w Auto
[2020-08-09] MEDS: INSULIN REGULAR, HUMAN 100 UNITS/1 ML SUB-Q SCH ×4 (08:35→22:50)
[2020-08-09] MEDS: DOCUSATE SODIUM 100 MG CAP PO SCH ×2 (11:45→22:44)
[2020-08-09] MEDS: carvediloL 3.125 MG TAB PO SCH (11:46)
[2020-08-09] MEDS: PIPERACIL/TAZOBACTA 4.5/NS 100 4.5 GM/100 ML VIAL IV SCH ×2 (11:46→17:25)
--- NOTE | 2020-08-09 14:17 | Progress Note ---
Assessment and Plan --COVID 19 Pneumonia Patient is positive for COVID-[address] on dexamethasone on remdesivir as patient is not hypoxic -- Colitis Patient placed on IV Zofran as needed. Continue Zosyn IV for now, appendicitis is ruled out per general surgeon -- Diabetes type 2 Monitor Accu-Cheks closely. Patient placed on sliding scale for good glycemic control. --DVT prophylaxis Patient placed on subcutaneous Lovenox. -- Full code status 08/08; patient is positive for Covid, continue to follow inflammatory markers. Resume diet per general surgery recommendation. Continue IV antibiotics for now Not a candidate for dexamethasone on remdesivir as patient is not hypoxic. If clinically stable possible discharge tomorrow. 08/09; Subjective Date of service: 08/09/20 Interval history: Patient seen and examined Patient positive for COVID-19 Patient denies any chest pain, SOB tolerated diet Objective - Exam Narrative Exam: General appearance: Present: no acute distress, well-nourished - EENT Eyes: Present: PERRL, EOM intact. Absent: scleral icterus ENT: hearing intact, clear oral mucosa, dentition normal - Neck Neck: Present: supple, normal ROM - Respiratory Respiratory effort: normal Respiratory: bilateral: CTA - Cardiovascular Rhythm: regular Heart Sounds: Present: S1 & S2. Absent: gallop, systolic murmur, diastolic murmur, rub, click - Extremities Extremities: no ischemia, pulses intact, pulses symmetrical, No edema, normal temperature, normal color, Full ROM Peripheral Pulses: within normal limits - Abdominal General gastrointestinal: Present: soft, tender (Mild epigastric tenderness), non-distended, normal bowel sounds. Absent: mass - Integumentary Integumentary: Present: clear, warm, dry. Absent: rash - Musculoskeletal Musculoskeletal: strength equal bilaterally - Psychiatric Psychiatric: appropriate mood/affect, intact judgment & insight, memory intact, cooperative - Neurologic Neurologic: CNII-XII intact, no focal deficits, moves all extremities - Constitutional Vitals: Vital Signs - 12hr 08/09/20 08/09/20 08/09/20 06:09 11:31 11:46 Temperature 98.0 F 99.0 F Pulse Rate 72 87 72 Respiratory 20 19 Rate Blood Pressure 96/67 136/79 96/67 O2 Sat by Pulse 100 100 Oximetry - Labs CBC & Chem 7: 08/09/20 04:42 08/09/20 04:42 Labs: Abnormal lab results 08/08/20 08/08/20 08/08/20 Range/Units 17:42 21:54 Unknown WBC (4.5-11.0) K/mm3 Monocytes % (Manual) (0.0-7.3) % Seg Neutrophils # Man (1.8-7.7) K/mm3 Lymphocytes # (Manual) (1.2-5.4) K/mm3 Potassium (3.6-5.0) mmol/L POC Glucose 313 H 286 H (70-105) mg/dL Calcium (8.4-10.2) mg/dL Coronavirus (PCR) Positive A (Negative) 08/09/20 08/09/20 08/09/20 Range/Units 04:42 04:42 07:56 WBC 2.8 L (4.5-11.0) K/mm3 Monocytes % (Manual) 13.0 H (0.0-7.3) % Seg Neutrophils # Man 1.5 L (1.8-7.7) K/mm3 Lymphocytes # (Manual) 0.9 L (1.2-5.4) K/mm3 Potassium 3.0 L (3.6-5.0) mmol/L POC Glucose 119 H (70-105) mg/dL Calcium 7.8 L (8.4-10.2) mg/dL Coronavirus (PCR) (Negative) 08/09/20 Range/Units 11:30 WBC (4.5-11.0) K/mm3 Monocytes % (Manual) (0.0-7.3) % Seg Neutrophils # Man (1.8-7.7) K/mm3 Lymphocytes # (Manual) (1.2-5.4) K/mm3 Potassium (3.6-5.0) mmol/L POC Glucose 166 H (70-105) mg/dL Calcium (8.4-10.2) mg/dL Coronavirus (PCR) (Negative) HEART Score - HEART Score Troponin: Troponin T 0.013 ng/mL (0.00-0.029) 08/07/20 17:01
--- NOTE | 2020-08-09 14:39 | Discharge Summary ---
Providers - Providers Date of Admission: 08/08/20 16:13 Date of discharge: 08/10/20 Attending physician: AUBREY VILLALOBOS 08/07/20 23:31 Consult to Physician [CONS] Routine Comment: Consulting Provider: YARON LUTHER Physician Instructions: Reason For Exam: poss api 08/07/20 23:33 Consult to Physician [CONS] Routine Comment: Consulting Provider: TIANA PETTY Physician Instructions: Reason For Exam: pui. pna 08/08/20 00:09 Consult to Dietitian/Nutrition [CONS] Routine Physician Instructions: Reason For Exam: Reason for Consult: Diet education 08/08/20 04:35 Consult to Dietitian/Nutrition [CONS] Routine Physician Instructions: Reason For Exam: Reason for Consult: Poor oral intake Primary care physician: MANUFACTURING QUALITY TECHNICIAN Hospitalization Condition: Critical Hospital course: Discharge diagnosis: --COVID 19 Pneumonia Patient is positive for COVID-[address] on dexamethasone on remdesivir as patient is not hypoxic -- Colitis Patient placed on IV Zofran as needed. Continue Zosyn IV for now, appendicitis is ruled out per general surgeon --hypotension, will hold BP meds, gentle iv fluid hydration --hypokelamia, replete -- Diabetes type 2 Monitor Accu-Cheks closely. Patient placed on sliding scale for good glycemic control. --DVT prophylaxis Patient placed on subcutaneous Lovenox. -- Full code status 08/08; Patient is positive for Covid, continue to follow inflammatory markers. Resume diet per general surgery recommendation. Continue IV antibiotics for now Not a candidate for dexamethasone on remdesivir as patient is not hypoxic. 08/09; Patient remains on RA, BP at low 90s, hold blood pressure medicine, replete potassium and monitor BMP. Will order for PT eval. follow inflammatory marker. 08/10; patient remains room air, BP significantly improved. Tolerating diet. Patient will be discharged home in stable condition with outpatient follow-up. Recommended to repeat BMP in 1 week. Disposition: TO HOME OR SELFCARE Time spent for discharge: 34 minutes Core Measure Documentation - Palliative Care Palliative Care/ Comfort Measures: Not Applicable - Core Measures Any of the following diagnoses?: none Exam - Physical Exam Narrative exam: Limited physical exam due to COVID-19 pandemic to minimize transmission of the disease. Vital reviewed and stable. GENERAL: Elderly female lying on bed appeared to be in no discomfort. HEENT: Normocephalic. Atraumatic. NECK: Supple. CHEST/LUNGS: breathing nonlabored. HEART/CARDIOVASCULAR: Heart rate stable on telemetry ABDOMEN: Visibly not distended SKIN: There is no rash NEURO: No focal motor deficit. Follows command. MUSCULOSKELETAL: No joint effusion EXTRIMITY: No swelling, no cyanosis or clubbing. PSYCH: Cooperative. - Constitutional Vitals: Temp Pulse Resp BP Pulse Ox 99.0 F 72 19 121/67 100 08/09/20 11:31 08/09/20 11:46 08/09/20 11:31 08/09/20 11:46 08/09/20 11:31 Plan Activity: fall precautions Weight Bearing Status: Weight Bear as Tolerated Diet: low fat, low salt Follow up with: PRIMARY CARE, [Primary Care Provider] - 7 Days LUCIANO MARTINEZ MD [Staff Physician] - 7 Days Prescriptions: Amoxicillin/Potassium Clav [Augmentin 875-125 Tablet] 1 each PO BID #7 tablet Ascorbic Acid [Vitamin C] 1,000 mg PO BID #14 tablet Cholecalciferol (Vitamin D3) [Vitamin D3] 5,000 unit PO DAILY #7 tablet Zinc Sulfate 220 mg PO BID #14 capsule
--- NOTE | 2020-08-09 14:44 | Progress Note ---
Assessment and Plan --COVID 19 Pneumonia Patient is positive for COVID-[address] on dexamethasone on remdesivir as patient is not hypoxic -- Colitis Patient placed on IV Zofran as needed. Continue Zosyn IV for now, appendicitis is ruled out per general surgeon --hypotension, will hold BP meds, gentle iv fluid hydration --hypokelamia, replete -- Diabetes type 2 Monitor Accu-Cheks closely. Patient placed on sliding scale for good glycemic c ontrol. --DVT prophylaxis Patient placed on subcutaneous Lovenox. -- Full code status 08/08; Patient is positive for Covid, continue to follow inflammatory markers. Resume diet per general surgery recommendation. Continue IV antibiotics for now Not a candidate for dexamethasone on remdesivir as patient is not hypoxic. 08/09; Patient remains on RA, BP at low 90s, hold blood pressure medicine, replete potassium and monitor BMP. Will order for PT eval. follow inflammatory marker. Subjective Date of service: 08/09/20 Interval history: Patient seen and examined. Medical records and medication list reviewed. No acute event overnight noted by the RN. Patient denies any chest pain or difficulty breathing. Patient states that she is tolerating diet better today. Discussed plan of care at bedside with patient. Objective - Exam Narrative Exam: Limited physical exam due to COVID-19 pandemic to minimize transmission of the disease. Vital reviewed and stable. GENERAL: Elderly female lying on bed appeared to be in no discomfort. HEENT: Normocephalic. Atraumatic. NECK: Supple. CHEST/LUNGS: breathing nonlabored. HEART/CARDIOVASCULAR: Heart rate stable on telemetry ABDOMEN: Visibly not distended SKIN: There is no rash NEURO: No focal motor deficit. Follows command. MUSCULOSKELETAL: No joint effusion EXTRIMITY: No swelling, no cyanosis or clubbing. PSYCH: Cooperative. - Constitutional Vitals: Vital Signs - 12hr 08/09/20 08/09/20 08/09/20 06:09 11:31 11:46 Temperature 98.0 F 99.0 F Pulse Rate 72 87 72 Respiratory 20 19 Rate Blood Pressure 96/67 136/79 96/67 O2 Sat by Pulse 100 100 Oximetry - Labs CBC & Chem 7: 08/09/20 04:42 08/09/20 04:42 Labs: Abnormal lab results 08/08/20 08/08/2021 Range/Units 17:42 21:54 Unknown WBC (4.5-11.0) K/mm3 Monocytes % (Manual) (0.0-7.3) % Seg Neutrophils # Man (1.8-7.7) K/mm3 Lymphocytes # (Manual) (1.2-5.4) K/mm3 Potassium (3.6-5.0) mmol/L POC Glucose 313 H 286 H (70-105) mg/dL Calcium (8.4-10.2) mg/dL Coronavirus (PCR) Positive A (Negative) 08/09/20 08/09/20 08/09/20 Range/Units 04:42 04:42 07:56 WBC 2.8 L (4.5-11.0) K/mm3 Monocytes % (Manual) 13.0 H (0.0-7.3) % Seg Neutrophils # Man 1.5 L (1.8-7.7) K/mm3 Lymphocytes # (Manual) 0.9 L (1.2-5.4) K/mm3 Potassium 3.0 L (3.6-5.0) mmol/L POC Glucose 119 H (70-105) mg/dL Calcium 7.8 L (8.4-10.2) mg/dL Coronavirus (PCR) (Negative) 08/09/20 Range/Units 11:30 WBC (4.5-11.0) K/mm3 Monocytes % (Manual) (0.0-7.3) % Seg Neutrophils # Man (1.8-7.7) K/mm3 Lymphocytes # (Manual) (1.2-5.4) K/mm3 Potassium (3.6-5.0) mmol/L POC Glucose 166 H (70-105) mg/dL Calcium (8.4-10.2) mg/dL Coronavirus (PCR) (Negative) HEART Score - HEART Score Troponin: Troponin T 0.013 ng/mL (0.00-0.029) 08/07/20 17:01
[2020-08-09] MEDS ORDERED: SODIUM CHLORIDE 0.9% 1000 ML 1,000 ML IV SCH (15:00)
[2020-08-09] MEDS ORDERED: POTASSIUM CHLORIDE ER 20 MEQ TAB PO ONE (16:00)
[2020-08-09] MEDS: ASCORBIC ACID 500 MG TAB PO SCH ×2 (17:09→22:45)
[2020-08-09] MEDS: CHOLECALCIFEROL (VIT D3) 5,000 UNIT TAB PO SCH (17:09)
[2020-08-09] MEDS: ZINC SULFATE 220 MG CAP PO SCH ×2 (17:16→22:45)
[2020-08-09] MEDS: LATANOPROST 0.005% OPHTH SOLN 2.5 ML OU SCH (17:17)
[2020-08-09] MEDS: ENOXAPARIN 40 MG/0.4 ML INJ SUB-Q SCH (22:44)
[2020-08-10] MEDS: ONDANSETRON 4 MG/2 ML INJ IV PRN (03:08)
[2020-08-10] MEDS: PIPERACIL/TAZOBACTA 4.5/NS 100 4.5 GM/100 ML VIAL IV SCH ×2 (03:08→10:22)
[2020-08-10] MEDS: INSULIN REGULAR, HUMAN 100 UNITS/1 ML SUB-Q SCH ×2 (08:30→13:15)
[2020-08-10] MEDS: ZINC SULFATE 220 MG CAP PO SCH (10:23)
[2020-08-10] MEDS: CHOLECALCIFEROL (VIT D3) 5,000 UNIT TAB PO SCH (10:24)
[2020-08-10] MEDS: DOCUSATE SODIUM 100 MG CAP PO SCH (10:24)
[2020-08-10] MEDS: ASCORBIC ACID 500 MG TAB PO SCH (10:24)
[2020-08-10 11:52] VITALS: BP 121/67
[2020-08-10 15:32] LABS: BUN/Creatinine Ratio 8; Blood Urea Nitrogen 6 mg/dL (7-17); Hemolysis Index 2
[2020-08-10] MEDS ORDERED: POTASSIUM CHLORIDE ER 20 MEQ TAB PO ONE (17:22)
== END 2020-08-10 17:20 | disposition home or self-care (01) | DRG 177 ==
LOC: ED 16:06 → 3A 08-08 00:01 → OBSVTOIN 08-08 16:13
PROVIDERS: ADMIT Internal Medicine Geriatric Medicine; ATTEND Internal Medicine
DX: U07.1 COVID-19 (principal); J12.82 Pneumonia due to coronavirus disease 2019; K52.9 Noninfective gastroenteritis and colitis, unspecified; I95.9 Hypotension, unspecified; E87.6 Hypokalemia; E11.9 Type 2 diabetes mellitus without complications; J45.909 Unspecified asthma, uncomplicated; E11.65 Type 2 diabetes mellitus with hyperglycemia; Z90.710 Acquired absence of both cervix and uterus; Z79.4 Long term (current) use of insulin; Z79.899 Other long term (current) drug therapy; Z85.51 Personal history of malignant neoplasm of bladder
CPT/HCPCS: 36415; 71046; 74177; 80048; 80053; 81001; 82140; 82728; 82947; 82962; 83615; 83735; 84145; 84484; 85007; 85025; 85027; 85379; 85610; 85730; 86140; 87040; 93005; 96365; 96375; G0378; J1650; J1815; J2405; J2543; J3475; J7030; J7042; Q9967; U0003

== ENCOUNTER 2020-11-12 16:03 | Observation (INO) | payer MEDICARE ==
--- NOTE | 2020-11-12 19:22 | Event Note ---
ED Screening Note Date of service: 11/12/20 Time: 19:20 ED Screening Note: 70-year-old -Citizen Of [place] female presents to the emergency room by referral of her primary care provider for weakness shortness of breath. Patient has a medical history of hypertension, diabetes, malnutrition. Patient states she has been short of breath since she was diagnosed with Covid back in July here at our hospital and was admitted. This initial assessment/diagnostic orders/clinical plan/treatment(s) is/are subject to change based on patients health status, clinical progression and re- assessment by fellow clinical providers in the ED. Further treatment and workup at subsequent clinical providers discretion. Patient/guardian urged not to elope from the ED as their condition may be serious if not clinically assessed and managed. Initial orders include:
[2020-11-12 19:49] LABS: Basophils % (Auto) 0.6 % (0.0-1.8); Eosinophils # (Auto) 0.1 K/mm3 (0.0-0.4); Eosinophils % (Auto) 2.9 % (0.0-4.3); Hematocrit 37.7 % (30.3-42.9); Hemoglobin 12.3 gm/dl (10.1-14.3); Lymphocytes # (Auto) 1.4 K/mm3 (1.2-5.4); Lymphocytes % (Auto) 33.5 % (13.4-35.0); Mean Corpuscular HGB Conc 33 % (30-34); Mean Corpuscular Volume 91 fl (79-97); Monocytes # (Auto) 0.5 K/mm3 (0.0-0.8); Monocytes % (Auto) 12.9 % (0.0-7.3); Platelet Count 161 K/mm3 (140-440); Red Blood Count 4.16 M/mm3 (3.65-5.03); Red Cell Distribution Width 15.8 % (13.2-15.2)
[2020-11-12 20:04] LABS: Alanine Aminotransferase 16 units/L (7-56); Albumin 3.8 g/dL (3.9-5); BUN/Creatinine Ratio 15; Blood Urea Nitrogen 12 mg/dL (7-17); Calcium 8.3 mg/dL (8.4-10.2); Hemolysis Index 10
--- NOTE | 2020-11-12 23:52 | Emergency Department Report ---
ED Shortness of Breath HPI - General Chief Complaint: Dyspnea/Respdistress Stated Complaint: DIFF BREATHING Time Seen by Provider: 11/12/20 23:17 Source: patient Mode of arrival: Ambulatory Limitations: Other - History of Present Illness Initial Comments: Patient is a 70-year-old female that presents emergency room with complaints of difficulty breathing, shortness of breath, dyspnea exertion, weakness and decreased p.o. intake. Patient states that her shortness of breath is better with rest. Patient states that her shortness of breath worse with exertion and laying flat. Patient states she feels like she is suffocating when she lays flat. Patient states her primary care sent her here. Patient denies chest pain. Patient states her weakness is generalized. Patient states her weakness is better with rest and worse with exertion. Patient also complains of lower extremity edema. Patient denies calf pain. Patient denies lower extremity pain. Patient denies recent travel. Patient denies recent international travel. Patient denies exposure to the novel coronavirus. Patient denies sick contacts. Patient denies fever and chills. Patient denies cough. Patient denies diarrhea. Patient denies coming in contact with anybody with symptoms of the novel coronavirus. MD Complaint: shortness of breath -: Sudden Severity: severe Consistency: constant Improves With: rest, upright position Worsens With: lying flat, exertion - Related Data Previous Rx's Medication Instructions Recorded Last Taken Type Insulin Aspart (Nf) [NovoLOG 1 dose SQ AC PRN #1 pen 09/16/18 Unknown Rx Flexpen] Insulin Detemir (Nf) [Levemir 8 unit SQ Q12H #1 pen 09/16/18 Unknown Rx Flextouch (Nf)] Albuterol Mdi (or & Nicu Only) 2 puff IH QID PRN #8.5 gram 08/10/20 Unknown Rx [ProAir HFA Inhaler] Amoxicillin/Potassium Clav 1 each PO BID #7 tablet 08/10/20 Unknown Rx [Augmentin 875-125 Tablet] Ascorbic Acid [Vitamin C] 1,000 mg PO BID #14 tablet 08/10/20 Unknown Rx Cholecalciferol (Vitamin D3) 5,000 unit PO DAILY #7 tablet 08/10/20 Unknown Rx [Vitamin D3] Metoclopramide HCl [Reglan TAB] 5 mg PO TIDAC #14 tablet 08/10/20 Unknown Rx Potassium Chloride [K-Dur] 20 meq PO QDAY #3 tablet 08/10/20 Unknown Rx Zinc Sulfate 220 mg PO BID #14 capsule 08/10/20 Unknown Rx Allergies Allergy/AdvReac Type Severity Reaction Status Date / Time No Known Allergies Allergy Unverified 09/13/18 16:10 ED Review of Systems ROS: Stated complaint: DIFF BREATHING Other details as noted in HPI Constitutional: weakness. denies: chills, fever Eyes: denies: eye pain, eye discharge, vision change ENT: denies: ear pain, throat pain Respiratory: see HPI, shortness of breath, SOB with exertion, SOB at rest. denies: cough, wheezing Cardiovascular: as per HPI, dyspnea on exertion, edema. denies: chest pain, palpitations Endocrine: no symptoms reported Gastrointestinal: denies: abdominal pain, nausea, diarrhea Genitourinary: denies: urgency, dysuria, discharge Musculoskeletal: denies: back pain, joint swelling, arthralgia Skin: denies: rash, lesions Neurological: as per HPI, weakness. denies: headache, paresthesias Psychiatric: denies: anxiety, depression Hematological/Lymphatic: denies: easy bleeding, easy bruising ED Past Medical Hx - Past Medical History Previous Medical History?: Yes Hx Diabetes: Yes Hx Asthma: Yes Additional medical history: Legally Blind, bladder CA - Surgical History Past Surgical History?: Yes Additional Surgical History: Bladder surgery for bladder cancer removal and fibroid removal - Family History Family history: no significant - Social History Smoking Status: Never Smoker Substance Use Type: None - Medications Home Medications: Home Medications Medication Instructions Recorded Confirmed Last Taken Type Insulin Aspart (Nf) [NovoLOG 1 dose SQ AC PRN #1 pen 09/16/18 Unknown Rx Flexpen] Insulin Detemir (Nf) [Levemir 8 unit SQ Q12H #1 pen 09/16/18 Unknown Rx Flextouch (Nf)] Albuterol Mdi (or & Nicu Only) 2 puff IH QID PRN #8.5 gram 08/10/20 Unknown Rx [ProAir HFA Inhaler] Amoxicillin/Potassium Clav 1 each PO BID #7 tablet 08/10/20 Unknown Rx [Augmentin 875-125 Tablet] Ascorbic Acid [Vitamin C] 1,000 mg PO BID #14 tablet 08/10/20 Unknown Rx Cholecalciferol (Vitamin D3) 5,000 unit PO DAILY #7 tablet 08/10/20 Unknown Rx [Vitamin D3] Metoclopramide HCl [Reglan TAB] 5 mg PO TIDAC #14 tablet 08/10/20 Unknown Rx Potassium Chloride [K-Dur] 20 meq PO QDAY #3 tablet 08/10/20 Unknown Rx Zinc Sulfate 220 mg PO BID #14 capsule 08/10/20 Unknown Rx ED Physical Exam - General Limitations: No Limitations General appearance: alert, in no apparent distress - Head Head exam: Present: atraumatic, normocephalic - Eye Eye exam: Present: normal appearance - ENT ENT exam: Present: mucous membranes moist - Neck Neck exam: Present: normal inspection - Respiratory Respiratory exam: Present: normal lung sounds bilaterally. Absent: respiratory distress - Cardiovascular Cardiovascular Exam: Present: regular rate, normal rhythm. Absent: systolic m urmur, diastolic murmur, rubs, gallop - GI/Abdominal GI/Abdominal exam: Present: soft, normal bowel sounds - Extremities Exam Extremities exam: Present: full ROM, normal capillary refill, pedal edema. Absent: tenderness, calf tenderness - Back Exam Back exam: Present: normal inspection - Neurological Exam Neurological exam: Present: alert, oriented X3 - Psychiatric Psychiatric exam: Present: normal affect, normal mood - Skin Skin exam: Present: warm, dry, intact, normal color. Absent: rash ED Course Vital Signs 11/12/20 11/12/20 19:17 23:29 Temperature 97.9 F 98.2 F Pulse Rate 99 H 82 Respiratory 18 16 Rate Blood Pressure 185/161 Blood Pressure 181/114 [Left] O2 Sat by Pulse 95 99 Oximetry - Reevaluation(s) Reevaluation #1: I discussed all results with patient. I discussed plan of care with patient. Patient agrees with plan of care and admission. Patient to be admitted to the hospitalist service. 11/13/20 00:33 - Consultations Consultation #1: Hospitalist consulted for admission. Hospitalist to admit patient. 11/13/20 00:34 ED Medical Decision Making - Lab Data Result diagrams: 11/12/20 19:29 11/12/20 19:29 - EKG Data -: EKG Interpreted by Me EKG shows normal: sinus rhythm, axis, intervals, QRS complexes, ST-T waves Rate: normal - Radiology Data Radiology results: report reviewed, image reviewed interpreted by me: Chest x-ray: No pneumonia, no pneumothorax, no foreign body, no osseous findings, pulmonary edema and cardiomegaly and CHF changes. CHEST 1 VIEW 11/12/2020 11:44 PM INDICATION / CLINICAL INFORMATION: Short of breath. COMPARISON: 08/07/20. FINDINGS: SUPPORT DEVICES: None. HEART / MEDIASTINUM: There is moderate cardiomegaly. Pulmonary vasculature is unremarkable. LUNGS / PLEURA: There is mild bibasilar pleuroparenchymal disease, right greater than left, which has increased significantly. No pneumothorax. ADDITIONAL FINDINGS: No significant additional findings. IMPRESSION: Cardiomegaly and mild congestive heart failure. - Medical Decision Making Patient is a 70-year-old female that presents emergency room with complaints of lower extremity edema, difficulty breathing, MARTINEZ, SOB and weakness. Patient had labs done which were essentially unremarkable except for elevated BNP. Patient on exam found to have decreased lung volume and edema. Patient had a chest x- ray which shows pulmonary edema and CHF changes. Patient also found to have cardiomegaly. I personally reviewed the chest x-ray. Patient had EKG which shows no ST segment elevation. Patient has normal EKG. I personally reviewed the EKG. Patient given IV Lasix in the ER. Patient admitted to the hospital service for further evaluation treatment. Critical care time documented due to the multiple reassessments, prolonged time at the bedside, interpretation of diagnostics and labs. - Differential Diagnosis New onset CHF, SLB, MARTINEZ, volume overload, pulmonary edema Critical Care Time: Yes Critical care time in (mins) excluding proc time.: 35 Critical care attestation.: If time is entered above; I have spent that time in minutes in the direct care of this critically ill patient, excluding procedure time. Critical Care Time: 35 minutes ED Disposition Clinical Impression: New onset of congestive heart failure, Pulmonary edema cardiac cause CHF (congestive heart failure) Qualifiers: Heart failure type: unspecified Heart failure chronicity: acute Qualified Code(s): I50.9 - Heart failure, unspecified Edema Qualifiers: Edema type: unspecified Qualified Code(s): R60.9 - Edema, unspecified Disposition: -09 OP ADMIT IP TO THIS HOSP Is pt being admited?: Yes Does the pt Need Aspirin: No Condition: Critical Instructions: Pulmonary Edema (ED) Time of Disposition: 00:35
[2020-11-13 00:16] LABS: Bilirubin,Urine NEG (Negative); Blood,Urine NEG (Negative); Color,Urine Yellow (Yellow); Mucus,Urine FEW /HPF
--- NOTE | 2020-11-13 00:23 | XRay Report ---
CHEST 1 VIEW 11/12/2020 11:44 PM INDICATION / CLINICAL INFORMATION: Short of breath. COMPARISON: 08/07/20. FINDINGS: SUPPORT DEVICES: None. HEART / MEDIASTINUM: There is moderate cardiomegaly. Pulmonary vasculature is unremarkable. LUNGS / PLEURA: There is mild bibasilar pleuroparenchymal disease, right greater than left, which has increased significantly. No pneumothorax. ADDITIONAL FINDINGS: No significant additional findings. IMPRESSION: Cardiomegaly and mild congestive heart failure. Signer Name: David Duarte MD Signed: 11/13/2020 12:18 AM Workstation Name: [id number]
[2020-11-13] MEDS ORDERED: FUROSEMIDE 40 MG/4 ML INJ IV ONE (00:33)
[2020-11-13 01:16] LABS: Creatine Kinase MB 4.5 ng/mL (0.0-4.0)
[2020-11-13] MEDS ORDERED: MAGNESIUM HYDROXIDE (MOM) ORAL LIQD UDC PO PRN (01:31)
[2020-11-13] MEDS ORDERED: ONDANSETRON 4 MG/2 ML INJ IV PRN (01:31)
[2020-11-13] MEDS ORDERED: ALPRAZolam 0.25 MG TAB PO PRN (01:31)
[2020-11-13] MEDS ORDERED: METOCLOPRAMIDE 10 MG/2 ML INJ IV PRN (01:31)
[2020-11-13] MEDS ORDERED: MORPHINE 2 MG/1 ML INJ IV PRN (01:31)
[2020-11-13] MEDS ORDERED: ALUM-MAG HYDROXIDE-SIMETHICONE 200-200-20MG/5ML ORAL LIQD 30 ML PO PRN (01:31)
[2020-11-13] MEDS ORDERED: ACETAMINOPHEN 325 MG TAB PO PRN (01:31)
[2020-11-13] MEDS ORDERED: SENNOSIDES 8.6 MG TAB PO PRN (01:31)
[2020-11-13] MEDS ORDERED: traMADol 50 MG TAB PO PRN (01:38)
[2020-11-13] MEDS ORDERED: traZODone 50 MG TAB PO PRN (01:38)
--- NOTE | 2020-11-13 01:45 | History and Physical Report ---
History of Present Illness Date of examination: 11/13/20 Date of admission: 11/13/20 00:39 Chief complaint: shortness of breath Chest pain Bilateral leg edema History of present illness: Patient is a 70-year-old female that presents emergency room with complaints of difficulty breathing, shortness of breath, dyspnea exertion, weakness and decreased p.o. intake. Patient states that her shortness of breath is better with rest. Patient states that her shortness of breath worse with exertion and laying flat. Patient states she feels like she is suffocating when she lays flat. Patient states her primary care sent her here. Patient denies chest pain. Patient states her weakness is generalized. Patient states her weakness is better with rest and worse with exertion. Patient also complains of lower extremity edema. Patient denies calf pain. Patient denies lower extremity pain. ED work Up shows WBC 4.1, hemoglobin 12.3, platelets 161, sodium 144, potassium 4.0 Creatinine 0.8 serum glucose 152, phosphorus 3.9, magnesium 1.9, BNP 4407. Checks x-ray showed a cardiomegaly and mild CHF. Patient seen in the ED at bedside. Patient alert and oriented x3 and on room air. Patient reports chest pain pain level is 5/10. She also reported shortness of breath and that is what brought her to the hospital. She has bilateral lower extremity edema. She reports history diabetes and hypertension. She says she is taking blood pressure medicine at home with same clonidine as needed. She reported history of bladder mass that was benign and was removed and also history of myomectomy. I reviewed her lab medical record and vital signs. Switch Technician consulted bilateral ultrasound of the lower extremities ordered. Past History Past Medical History: diabetes, hypertension, other (kidney mass and fibroids) Past Surgical History: Other (kidney mass removal and myomectomy) Social history: no significant social history, lives with family Family history: diabetes, hypertension Medications and Allergies Allergies Allergy/AdvReac Type Severity Reaction Status Date / Time No Known Allergies Allergy Unverified 09/13/18 16:10 Home Medications Medication Instructions Recorded Confirmed Last Taken Type ALBUTEROL NEB's [Proventil 0.083% 2 puff IH BID 11/13/20 11/13/20 Unknown History NEBS] Benzonatate [Tessalon Perles] 1 tab PO TID 11/13/20 11/13/20 Unknown History Bimatoprost [Lumigan 0.01%] 1 drop OP QPM 11/13/20 11/13/20 Unknown History Fluticasone/Umeclidin/Vilanter 1 each IH DAILY 11/13/20 11/13/20 Unknown History [Trelegy Ellipta 100-62.5-25] Olmesartan (Nf) [Benicar (Nf)] 20 mg PO QDAY 11/13/20 11/13/20 Unknown History Pantoprazole [Protonix] 40 mg PO QDAY 11/13/20 11/13/20 Unknown History cloNIDine [Catapres] 0.1 mg PO BID PRN 11/13/20 11/13/20 Unknown History Active Meds: Active Medications Acetaminophen (Acetaminophen 325 Mg Tab) 650 mg PO Q4H PRN PRN Reason: Pain MILD(1-3)/Fever >100.5/WADE Al Hydrox/Mg Hydrox/Simethicone (Alum-Mag Hydroxide-Simethicone [id number]/5ml Oral Liqd 30 Ml) 30 ml PO Q4H PRN PRN Reason: Indigestion Alprazolam (Alprazolam 0.25 Mg Tab) 0.125 mg PO Q8H PRN PRN Reason: Agitation Aspirin (Aspirin 81 Mg Tab Chew) 81 mg PO QDAY [facility] Atorvastatin Calcium (Atorvastatin 40 Mg Tab) 40 mg PO QHS [facility] Carvedilol (Carvedilol 3.125 Mg Tab) 3.125 mg PO BID [facility] Furosemide (Furosemide 20 Mg/2 Ml Inj) 40 mg IV BID@0600,1800 [facility] Losartan Potassium (Losartan 50 Mg Tab) 50 mg PO QDAY [facility] Magnesium Hydroxide (Magnesium Hydroxide (Mom) Oral Liqd Udc) 30 ml PO Q4H PRN PRN Reason: Constipation Metoclopramide HCl (Metoclopramide 10 Mg/2 Ml Inj) 10 mg IV Q6H PRN PRN Reason: Nausea And Vomiting Morphine Sulfate (Morphine 2 Mg/1 Ml Inj) 1 mg IV Q5MIN PRN PRN Reason: Chest Pain unrelieved by NTG Nitroglycerin (Nitroglycerin 0.4 Mg Tab Subl) 0.4 mg SL .Q5MIN PRN PRN Reason: Chest Pain Ondansetron HCl (Ondansetron 4 Mg/2 Ml Inj) 4 mg IV Q8H PRN PRN Reason: Nausea And Vomiting Potassium Chloride (Potassium Chloride Er 20 Meq Tab) 20 meq PO QDAY [place] Senna (Sennosides 8.6 Mg Tab) 8.6 mg PO Q12HR PRN PRN Reason: Constipation Sodium Chloride (Sodium Chloride 0.9% 10 Ml Flush Syringe) 10 ml IV BID [place] Sodium Chloride (Sodium Chloride 0.9% 10 Ml Flush Syringe) 10 ml IV PRN PRN PRN Reason: LINE FLUSH Tramadol HCl (Tramadol 50 Mg Tab) 50 mg PO Q4H PRN PRN Reason: Pain, Moderate (4-6) Trazodone HCl (Trazodone 50 Mg Tab) 50 mg PO QHS PRN PRN Reason: Insomnia Review of Systems Constitutional: fatigue, weakness Ears, nose, mouth and throat: no epistaxis, no bleeding gums Breasts: no discharge, no pain Cardiovascular: chest pain, edema, shortness of breath, dyspnea on exertion, high blood pressure, leg edema, decreased exercise tolerance Respiratory: shortness of breath, dyspnea on exertion, no hemoptysis Gastrointestinal: no constipation, no melena Genitourinary Female: no pelvic pain Rectal: no hemorrhoids Musculoskeletal: no neck pain Integumentary: no rash, no pruritis Neurological: weakness, no paralysis Psychiatric: anxiety, no suicidal ideation, no disorientation, no hallucinations Endocrine: no polydipsia Hematologic/Lymphatic: no easy bruising, no easy bleeding Allergic/Immunologic: no urticaria Exam - Constitutional Vitals: Temp Pulse Resp BP Pulse Ox 98.2 F 85 25 H 167/105 99 11/12/20 23:29 11/13/20 00:45 11/13/20 00:45 11/13/20 00:45 11/13/20 00:45 General appearance: Present: mild distress. Absent: other (frail appearing patient) - EENT Eyes: Present: PERRL ENT: hearing intact, clear oral mucosa - Neck Neck: Present: supple, normal ROM - Respiratory Respiratory effort: normal Respiratory: bilateral: CTA - Cardiovascular Heart rate: 85 Heart Sounds: Present: S1 & S2. Absent: rub, click - Extremities Extremities: pulses symmetrical, abnormal (lower legs edema) Extremity abnormal: edema Peripheral Pulses: within normal limits - Abdominal General gastrointestinal: Present: soft, non-tender, non-distended, normal bowel sounds Female genitourinary: Present: normal - Integumentary Integumentary: Present: clear, warm, dry - Musculoskeletal Musculoskeletal: strength equal bilaterally, generalized weakness - Psychiatric Psychiatric: appropriate mood/affect, intact judgment & insight, cooperative - Neurologic Neurologic: CNII-XII intact, moves all extremities - Allied Health Allied health notes reviewed: nursing HEART Score - HEART Score Troponin: Troponin T 0.011 ng/mL (0.00-0.029) 11/12/20 19: Results - Labs CBC & Chem 7: 11/12/20 19:29 11/12/20 19: Labs: Abnormal lab results 11/12/20 11/12/20 11/12/20 Range/Units 19:23 19: 19: WBC 4.1 L (4.5-11.0) K/mm3 RDW 15.8 H (13.2-15.2) % [place] % (Auto) 12.9 H (0.0-7.3) % POC Glucose 68 L (70-105) mg/dL Calcium 8.3 L (8.4-10.2) mg/dL Total Bilirubin 3.00 H (0.1-1.2) mg/dL Total Creatine Kinase (30-135) units/L CK-MB (CK-2) (0.0-4.0) ng/mL NT-Pro-B Natriuret Pep (0-900) pg/mL Albumin 3.8 L (3.9-5) g/dL 11/12/20 11/12/20 11/12/20 Range/Units 19: 19: 22:24 WBC (4.5-11.0) K/mm3 RDW (13.2-15.2) % [place] % (Auto) (0.0-7.3) % POC Glucose 152 H (70-105) mg/dL Calcium (8.4-10.2) mg/dL Total Bilirubin (0.1-1.2) mg/dL Total Creatine Kinase 147 H (30-135) units/L CK-MB (CK-2) 4.5 H (0.0-4.0) ng/mL NT-Pro-B Natriuret Pep 4407 H (0-900) pg/mL Albumin (3.9-5) g/dL Assessment and Plan - Patient Problems (1) CHF (congestive heart failure) Current Visit: Yes Status: Acute Qualifiers: Heart failure type: unspecified Heart failure chronicity: acute Qualified Code(s): I50.9 - Heart failure, unspecified Plan to address problem: Chest x-ray shows Cardiomegly and CHF ECHO ordered and cafeteria helper consulted ASA, Statin, BB, and oxygen supplement PRN Subliqual nitro PRN for chest Pain (2) Pulmonary edema cardiac cause Current Visit: Yes Status: Acute Plan to address problem: Continue diuretics Bronchodilators PRN for shortness of breath (3) Diabetes Current Visit: No Status: Acute Qualifiers: Diabetes mellitus complication status: with other specified complication Plan to address problem: monitor blood sugar with SSI Patient on home metformin Will hold metformin-patient advised to resume after d/c Check HGA1c (4) Essential (primary) hypertension Current Visit: Yes Status: Acute Plan to address problem: Monitor blood pressure Resume home antihypertensive PRN clonidine (5) GERD (gastroesophageal reflux disease) Current Visit: Yes Status: Acute Plan to address problem: Resume home PPI-protonix (6) Bilateral leg edema Current Visit: Yes Status: Acute Plan to address problem: Lower leg edema mostly likely due to CHF Has shortness of breath and chest pain. Patients pain level 5/10 d-dimer, bilateral leg US-f/u with result Sublingual nitro prn for chest pain (7) DVT prophylaxis Current Visit: Yes Status: Acute Plan to address problem: Levonox SQ
[2020-11-13] MEDS ORDERED: cloNIDine 0.1 MG TAB PO PRN (01:56)
[2020-11-13] MEDS: carvediloL 3.125 MG TAB PO SCH ×3 (01:56→21:35)
[2020-11-13] MEDS ORDERED: ALBUTEROL 2.5 MG/3 ML NEBU IH PRN (02:10)
--- NOTE | 2020-11-13 03:49 | Vascular Lab Report ---
DUPLEX DOPPLER LOWER EXTREMITY VEINS, BILATERAL INDICATION / CLINICAL INFORMATION: Bilateral leg edema. TECHNIQUE: Duplex doppler imaging was performed through the veins of both lower extremities using venous jovon alessandra and other maneuvers. COMPARISON: None available. FINDINGS: RIGHT COMMON FEMORAL VEIN: Negative. RIGHT FEMORAL VEIN: Negative. RIGHT POPLITEAL VEIN: Negative. RIGHT CALF VEINS: Negative. LEFT COMMON FEMORAL VEIN: Negative. LEFT FEMORAL VEIN: Negative. LEFT POPLITEAL VEIN: Negative. LEFT CALF VEINS: Negative. ADDITIONAL FINDINGS: There is no evidence of a popliteal cyst or other significant abnormality. IMPRESSION: No sonographic evidence for DVT in either lower extremity. Signer Name: David Duarte MD Signed: 11/13/2020 3:45 AM Workstation Name: [id number]
[2020-11-13] MEDS: NITROGLYCERIN 0.4 MG TAB SUBL SL PRN ×2 (04:31→09:25)
[2020-11-13] MEDS: FUROSEMIDE 40 MG/4 ML INJ IV SCH ×2 (06:13→18:17)
[2020-11-13] MEDS ORDERED: PANTOPRAZOLE 40 MG TAB PO SCH (07:30)
[2020-11-13] MEDS: INSULIN REGULAR, HUMAN 100 UNITS/1 ML SUB-Q SCH ×4 (08:39→22:08)
--- NOTE | 2020-11-13 09:10 | Consultation ---
History of Present Illness Consult date: 11/13/20 Requesting physician: HELENA CELESTIN Consult reason: congestive heart failure History of present illness: Pt is a 70-year-old AA female, previously unknown to our practice, who presented with complaints of progressively worsening SOB and BLE edema. SOB has been present since Jul 2020. Of note, pt was admitted with COVID-19 PNA at that time. She reports her breathing never fully recovered, and she reports that she has been experiencing decreased exercise tolerance over the past few months as well. Pt also endorses orthopnea, bendopnea, and an intermittent non-productive cough. No recent fever/chills. Pt does have a hx of asthma; however, she states that she has not had an asthma exacerbation in approximately 7 years. Cardiology has been consulted for eval and mgmt of suspected CHF. BNP significantly elevated upon admission. CXR reveals cardiomegaly and pulmonary vascular congestion. Pt has been receiving IV Lasix since arrival and states she is feeling much better than she has been feeling the past several months. No previous cardiac workup available for review. Pt reports that she saw a [facility] in 2019 for cardiac clearance in preparation for an Ophthalmology procedure. She says she had an echo and stress test done at that time, both of which were "normal." Past History Past Medical History: diabetes, GERD, hypertension, liver disease, renal failure, other (asthma) Past Surgical History: Other (benign bladder/kidney mass removal & myomectomy approx 1 yr ago) Social history: lives with family. denies: smoking, alcohol abuse Family history: diabetes, hypertension Medications and Allergies Allergies Allergy/AdvReac Type Severity Reaction Status Date / Time No Known Allergies Allergy Unverified 09/13/18 16:10 Home Medications Medication Instructions Recorded Confirmed Last Taken Type ALBUTEROL NEB's [Proventil 0.083% 2 puff IH BID 11/13/20 11/13/20 Unknown History NEBS] Benzonatate [Tessalon Perles] 1 tab PO TID 11/13/20 11/13/20 Unknown History Bimatoprost [Lumigan 0.01%] 1 drop OP QPM 11/13/20 11/13/20 Unknown History Fluticasone/Umeclidin/Vilanter 1 each IH DAILY 11/13/20 11/13/20 Unknown History [Trelegy Ellipta 100-62.5-25] Olmesartan (Nf) [Benicar (Nf)] 20 mg PO QDAY 11/13/20 11/13/20 Unknown History Pantoprazole [Protonix] 40 mg PO QDAY 11/13/20 11/13/20 Unknown History cloNIDine [Catapres] 0.1 mg PO BID PRN 11/13/20 11/13/20 Unknown History Active Meds: Active Medications Acetaminophen (Acetaminophen 325 Mg Tab) 650 mg PO Q4H PRN PRN Reason: Pain MILD(1-3)/Fever >100.5/WADE Last Admin: 11/13/20 04:39 Dose: 650 mg Documented by: Al Hydrox/Mg Hydrox/Simethicone (Alum-Mag Hydroxide-Simethicone 294-086-43th/5ml Oral Liqd 30 Ml) 30 ml PO Q4H PRN PRN Reason: Indigestion Albuterol (Albuterol 2.5 Mg/3 Ml Nebu) 2.5 mg IH Q4HRT PRN PRN Reason: Shortness Of Breath Alprazolam (Alprazolam 0.25 Mg Tab) 0.125 mg PO Q8H PRN PRN Reason: Agitation Aspirin (Aspirin 81 Mg Tab Chew) 81 mg PO QDAY [facility] Atorvastatin Calcium (Atorvastatin 40 Mg Tab) 40 mg PO QHS [place] Carvedilol (Carvedilol 3.125 Mg Tab) 3.125 mg PO BID [facility] Last Admin: 11/13/20 01:56 Dose: 3.125 mg Documented by: Clonidine HCl (Clonidine 0.1 Mg Tab) 0.1 mg PO Q4H PRN PRN Reason: Hypertension Enoxaparin Sodium (Enoxaparin 40 Mg/0.4 Ml Inj) 40 mg SUB-Q QDAY@1000 [facility]; Protocol Furosemide (Furosemide 40 Mg/4 Ml Inj) 40 mg IV 0600,1800 [facility] Last Admin: 11/13/20 06:13 Dose: 40 mg Documented by: Insulin Human Regular (Insulin Regular, Human 100 Units/1 Ml) 0 units SUB-Q [facility]; Protocol Last Admin: 11/13/20 08:39 Dose: Not Given Documented by: Losartan Potassium (Losartan 50 Mg Tab) 50 mg PO QDAY [place] Magnesium Hydroxide (Magnesium Hydroxide (Mom) Oral Liqd Udc) 30 ml PO Q4H PRN PRN Reason: Constipation Metoclopramide HCl (Metoclopramide 10 Mg/2 Ml Inj) 10 mg IV Q6H PRN PRN Reason: Nausea And Vomiting Morphine Sulfate (Morphine 2 Mg/1 Ml Inj) 1 mg IV Q5MIN PRN PRN Reason: Chest Pain unrelieved by NTG Nitroglycerin (Nitroglycerin 0.4 Mg Tab Subl) 0.4 mg SL .Q5MIN PRN PRN Reason: Chest Pain Last Admin: 11/13/20 04:31 Dose: 0.4 mg Documented by: Ondansetron HCl (Ondansetron 4 Mg/2 Ml Inj) 4 mg IV Q8H PRN PRN Reason: Nausea And Vomiting Pantoprazole Sodium (Pantoprazole 40 Mg Tab) 40 mg PO QDAC [facility] Last Admin: 11/13/20 08:47 Dose: 40 mg Documented by: Potassium Chloride (Potassium Chloride Er 20 Meq Tab) 20 meq PO QDAY [place] Senna (Sennosides 8.6 Mg Tab) 8.6 mg PO Q12HR PRN PRN Reason: Constipation Sodium Chloride (Sodium Chloride 0.9% 10 Ml Flush Syringe) 10 ml IV BID [place] Sodium Chloride (Sodium Chloride 0.9% 10 Ml Flush Syringe) 10 ml IV PRN PRN PRN Reason: LINE FLUSH Tramadol HCl (Tramadol 50 Mg Tab) 50 mg PO Q4H PRN PRN Reason: Pain, Moderate (4-6) Trazodone HCl (Trazodone 50 Mg Tab) 50 mg PO QHS PRN PRN Reason: Insomnia Review of Systems Constitutional: fatigue, no fever, no chills Ears, nose, mouth and throat: no nasal congestion, no sore throat Cardiovascular: orthopnea, edema, shortness of breath, dyspnea on exertion, paroxysmal nocturnal dyspnea, no chest pain, no palpitations, no rapid/irregular heart beat, no syncope, no lightheadedness, no claudication Respiratory: cough, shortness of breath, dyspnea on exertion, no congestion, no wheezing Gastrointestinal: no abdominal pain, no nausea, no vomiting, no diarrhea, no constipation Genitourinary Female: no pelvic pain, no flank pain, no dysuria Musculoskeletal: no neck stiffness, no neck pain, no myalgias Integumentary: no rash, no wounds Neurological: no head injury, no paralysis, no weakness, no parathesias, no numbness, no tingling, no seizures, no syncope, no vertigo, no headaches Endocrine: no cold intolerance, no heat intolerance, no polydipsia, no polyuria Hematologic/Lymphatic: no easy bruising, no easy bleeding Allergic/Immunologic: no urticaria, no wheezing Physical Examination Last Vital Signs Temp 97.5 F L 11/13/20 08:31 Pulse 76 11/13/20 10:12 Resp 18 11/13/20 05:21 BP 149/90 11/13/20 10:12 Pulse Ox 100 11/13/20 08:31 General appearance: no acute distress HEENT: Positive: EOMI, Normocephaly, Mucus Membranes Moist Neck: Positive: neck supple, trachea midline. Negative: JVD/HJR Cardiac: Positive: Reg Rate and Rhythm, S1/S2 Lungs: Positive: Rales (bibasilar) Neuro: Positive: Grossly Intact Abdomen: Positive: Soft, Active Bowel Sounds. Negative: Tender Skin: Negative: Rash Musculoskeletal: Normal Range of Motion Extremities: Present: upper extr. pulses, lower extr. pulses, +1 Edema (pedal) Results 11/12/20 19:29 11/12/20 19:29 Cardiac Enzymes 11/12/20 11/12/20 Range/Units 19:29 19:29 AST 16 (5-40) units/L CK-MB (CK-2) 4.5 H (0.0-4.0) ng/mL CBC 11/12/20 Range/Units 19:29 WBC 4.1 L (4.5-11.0) K/mm3 RBC 4.16 (3.65-5.03) M/mm3 Hgb 12.3 (10.1-14.3) gm/dl Hct 37.7 (30.3-42.9) % Plt Count 161 (140-440) K/mm3 Lymph # (Auto) 1.4 (1.2-5.4) K/mm3 [place] # (Auto) 0.5 (0.0-0.8) K/mm3 Eos # (Auto) 0.1 (0.0-0.4) K/mm3 Baso # (Auto) 0.0 (0.0-0.1) K/mm3 Comprehensive Metabolic Panel 04/28/21 Range/Units 19:29 Sodium 144 (137-145) mmol/L Potassium 4.0 (3.6-5.0) mmol/L Chloride 106.3 (98-107) mmol/L Carbon Dioxide 26 (22-30) mmol/L BUN 12 (7-17) mg/dL Creatinine 0.8 (0.6-1.2) mg/dL Glucose 73 (65-100) mg/dL Calcium 8.3 L (8.4-10.2) mg/dL AST 16 (5-40) units/L ALT 16 (7-56) units/L Alkaline Phosphatase 82 (35-129) units/L Total Protein 6.4 (6.3-8.2) g/dL Albumin 3.8 L (3.9-5) g/dL - Imaging and Cardiology Echo: pending EKG: report reviewed, image reviewed - EKG Interpretation EKG: no acute changes EKG interpretations - Telemetry EKG Rhythm: Sinus Rhythm - EKG Sinus rhythms and dysrhythmias: sinus rhythm Supraventricular dysrhythmia: atrial premature complexe QRS axis and voltage: right axis deviation Assessment and Plan Consider chest CTA given elevated D-dimer. Echo pending. Continue IV Lasix 40mg BID with strict I/Os. Closely monitor renal indices and electrolytes. Agree with current antihypertensive regimen. Will optimize as needed. Pt seen in conjunction with Dr. Eaton, who agrees with the assessment and plan of care. - Patient Problems (1) New onset of congestive heart failure Current Visit: Yes Status: Suspected (2) Elevated d-dimer Current Visit: Yes Status: Acute (3) Asthma Current Visit: Yes Status: Chronic Qualifiers: Asthma severity: mild Asthma persistence: intermittent Asthma complication type: uncomplicated Qualified Code(s): J45.20 - Mild intermittent asthma, uncomplicated (4) Essential (primary) hypertension Current Visit: Yes Status: Chronic (5) HLD (hyperlipidemia) Current Visit: Yes Status: Chronic Qualifiers: Hyperlipidemia type: mixed hyperlipidemia Qualified Code(s): E78.2 - Mixed hyperlipidemia (6) DM2 (diabetes mellitus, type 2) Current Visit: Yes Status: Chronic (7) GERD (gastroesophageal reflux disease) Current Visit: Yes Status: Chronic (8) Pneumonia due to COVID-19 virus Current Visit: Yes Status: Resolved
[2020-11-13] MEDS: ENOXAPARIN 40 MG/0.4 ML INJ SUB-Q SCH (09:24)
[2020-11-13] MEDS: LOSARTAN 50 MG TAB PO SCH (09:24)
[2020-11-13] MEDS: ASPIRIN 81 MG TAB CHEW PO SCH (09:25)
[2020-11-13] MEDS: POTASSIUM CHLORIDE ER 20 MEQ TAB PO SCH (09:25)
--- NOTE | 2020-11-13 10:54 | Electrocardiograph Report ---
[facility] Test Date: 2020-11-13 Test Time: 00:42:08 Pat Name: JEREMIE PINEDO Department: Room: A456 1 Gender: F [employer] Operating Engineer: : [id number] Requested By: DEBI ALVARADO III Order Number: [id number] Reading MD: Abdiaziz Gardner Measurements Intervals [place] Rate: 85 P: 83 NM: 122 QRS: 101 QRSD: 87 T: -4 QT: 392 QTc: 465 Interpretive Statements Sinus rhythm Atrial premature complex Right axis deviation No previous ECG available for comparison Electronically Signed On 11-13-2020 10:53:54 EDT by Abdiaziz Gardner
--- NOTE | 2020-11-13 16:49 | Event Note ---
Date: 11/13/20 This is the second visit after midnight Patient seen and examined Vitals noted and stable [age] old -Finn[place] female presented to the hospital with worsening bilateral lower extremity edema difficulty breathing and orthopnea Started on IV Lasix, 2D echo ordered, cardiology consulted Continue current management and plan as dictated in the HPI
[2020-11-14] MEDS: FUROSEMIDE 40 MG/4 ML INJ IV SCH (05:50)
[2020-11-14 06:05] LABS: Hemoglobin 11.1 gm/dl (10.1-14.3); Mean Corpuscular HGB Conc 33 % (30-34); Mean Corpuscular Volume 90 fl (79-97); Platelet Count 127 K/mm3 (140-440); Red Blood Count 3.76 M/mm3 (3.65-5.03); Red Cell Distribution Width 15.8 % (13.2-15.2)
[2020-11-14 06:25] LABS: BUN/Creatinine Ratio 16; Blood Urea Nitrogen 14 mg/dL (7-17); Calcium 7.8 mg/dL (8.4-10.2); Hemolysis Index 4
[2020-11-14 07:00] LABS: Total Cells Counted 100
[2020-11-14 07:01] LABS: Anisocytosis 1+; Large Platelets Few; Platelet Estimate Consistent w Auto
[2020-11-14] MEDS: INSULIN REGULAR, HUMAN 100 UNITS/1 ML SUB-Q SCH (09:04)
[2020-11-14] MEDS ORDERED: carvediloL 3.125 MG TAB PO SCH (09:48)
[2020-11-14] MEDS ORDERED: carvediloL 6.25 MG TAB ONE (10:05)
[2020-11-14] MEDS ORDERED: SPIRONOLACTONE 25 MG TAB ONE (10:05)
[2020-11-14] MEDS ORDERED: POTASSIUM CHLORIDE ER 20 MEQ TAB PO NR (10:11)
[2020-11-14] MEDS ORDERED: SPIRONOLACTONE 25 MG TAB PO SCH (10:30)
[2020-11-14] MEDS: LOSARTAN 50 MG TAB PO SCH (10:42)
[2020-11-14] MEDS: ENOXAPARIN 40 MG/0.4 ML INJ SUB-Q SCH (10:42)
[2020-11-14] MEDS: ASPIRIN 81 MG TAB CHEW PO SCH (10:42)
[2020-11-14] MEDS: POTASSIUM CHLORIDE ER 20 MEQ TAB PO SCH (10:43)
[2020-11-14] MEDS: carvediloL 6.25 MG TAB PO SCH ×2 (10:43→21:19)
--- NOTE | 2020-11-14 11:03 | Progress Note ---
Assessment and Plan Telemetry reviewed: Sinus rhythm 70. No events. Cardiomyopathy Echocardiogram reviewed (11/13/2020) LVEF 25-30%. Left ventricle is borderline dilated. LV SF is moderate to severely decreased. Flow pattern suggest impaired LV relaxation. Right ventricle is mildly dilated and moderately hypokinetic. Mild MR. Moderate TR. RVSP 50-55 mmHg. Of note: moderate left pleural effusion. Continue BB, ACEI/ARB therapy: Patient currently on Coreg 6.25 twice daily, losartan 50 mg. Continue Lasix 40 mg p.o. daily, Aldactone 25 mg p.o. daily Heart failure reduced ejection fraction Patient appears to be nearing euvolemia. Restricted intake reviewed with patient 1 L per day. Elevated D-dimer D-dimer elevation is chronically elevated and consistent with previous visit. Patient currently has no chest pain or shortness of breath. Patient is requesting to go home. Close follow-up is scheduled for 11/17/2020. Will monitor for symptoms. Essential hypertension Continue current cardiac regimen DVT prophylaxis Lovenox SQ Patient is currently in stable cardiac status. Continue current cardiac regimen. Patient may discharge from cardiac standpoint. Patient showed follow-up with Dr. Eaton on 11/17/2020 in our [place] office at 10:15 AM. # Pt seen in conjunction with Dr. Eaton, who agrees with the assessment and plan of care. - Patient Problems (1) New onset of congestive heart failure Current Visit: Yes Status: Suspected (2) Elevated d-dimer Current Visit: Yes Status: Acute (3) Asthma Current Visit: Yes Status: Chronic Qualifiers: Asthma severity: mild Asthma persistence: intermittent Asthma complication type: uncomplicated Qualified Code(s): J45.20 - Mild intermittent asthma, uncomplicated (4) Essential (primary) hypertension Current Visit: Yes Status: Chronic (5) HLD (hyperlipidemia) Current Visit: Yes Status: Chronic Qualifiers: Hyperlipidemia type: mixed hyperlipidemia Qualified Code(s): E78.2 - Mixed hyperlipidemia (6) DM2 (diabetes mellitus, type 2) Current Visit: Yes Status: Chronic (7) GERD (gastroesophageal reflux disease) Current Visit: Yes Status: Chronic (8) Pneumonia due to COVID-19 virus Current Visit: Yes Status: Resolved Subjective Date of service: 11/14/20 Principal diagnosis: Difficulty Breathing Interval history: Patient resting comfortably in bed. No shortness of breath, no chest pain. Telemetry reviewed sinus rhythm 70. No events. Objective Last Vital Signs Temp 97.6 F 11/14/20 08:15 Pulse 72 11/14/20 08:37 Resp 18 11/14/20 08:15 BP 141/86 11/14/20 08:15 Pulse Ox 98 11/14/20 08:15 - Physical Examination General: No Apparent Distress HEENT: Positive: EOMI, Normocephaly, Mucus Membranes Moist Neck: Positive: neck supple, trachea midline. Negative: JVD/HJR Cardiac: Positive: Reg Rate and Rhythm, S1/S2 Neuro: Positive: Grossly Intact Abdomen: Positive: Soft, Active Bowel Sounds. Negative: Tender Skin: Negative: Rash Musculoskeletal: Normal Range of Motion Extremities: Present: upper extr. pulses, lower extr. pulses, +1 Edema (pedal) - Labs and Meds CBC 11/14/20 Range/Units 05:26 WBC 3.2 L (4.5-11.0) K/mm3 RBC 3.76 (3.65-5.03) M/mm3 Hgb 11.1 (10.1-14.3) gm/dl Hct 34.0 (30.3-42.9) % Plt Count 127 L (140-440) K/mm3 Comprehensive Metabolic Panel 11/14/20 Range/Units 05:26 Sodium 139 (137-145) mmol/L Potassium 3.2 L (3.6-5.0) mmol/L Chloride 100.2 (98-107) mmol/L Carbon Dioxide 28 (22-30) mmol/L BUN 14 (7-17) mg/dL Creatinine 0.9 (0.6-1.2) mg/dL Glucose 248 H (65-100) mg/dL Calcium 7.8 L (8.4-10.2) mg/dL - Imaging and Cardiology EKG: report reviewed, image reviewed Echo: report reviewed (Echocardiogram reviewed (11/13/2020) LVEF 25-30%. Left ventricle is borderline dilated. LV SF is moderate to severely decreased. Flow pattern suggest impaired LV relaxation. Right ventricle is mildly dilated and moderately hypokinetic. Mild MR. Moderate TR. RVSP 50-55 mmHg. Of note: moderate ) - Telemetry EKG Rhythm: Sinus Rhythm - EKG Sinus rhythms and dysrhythmias: sinus rhythm QRS axis and voltage: right axis deviation
--- NOTE | 2020-11-14 13:04 | Discharge Summary ---
Providers - Providers Date of Admission: 11/13/20 00:39 Date of discharge: 11/14/20 Attending physician: AUBREY VILLALOBOS 11/13/20 01:31 Consult to Physician [CONS] Stat Comment: Consulting Provider: POLLO PENDLETON Physician Instructions: Reason For Exam: chf 11/13/20 04:18 Consult to Dietitian/Nutrition [CONS] Routine Physician Instructions: Reason For Exam: Reason for Consult: Poor oral intake 11/14/20 10:14 Physical Therapy Evaluation and Treat [CONS] Routine Comment: Reason For Exam: Debility Primary care physician: [facility] SPECIALIST Hospitalization Condition: Critical Pertinent studies: Chest x-ray, lower extremity venous Doppler, 2D echocardiogram Hospital course: This is a 70-year old -[place] female with a history of diabetes mellitus type 2, hypertension hyperlipidemia, asthma and history of COVID-19 pneumonia back in July 2020 presented to the hospital with worsening bilateral lower extremity edema difficulty breathing and orthopnea. Chest x-ray in the ER showed cardiomegaly and mild pulmonary congestion. Patient's oxygen saturation was normal in room air. Started on IV Lasix, 2D echo ordered, cardiology consulted. Patient was admitted to telemetry floor with scheduled iv diuretics. Monitored with serial CE, EKG. 2d echo obtained and showed EF of 25 to 30%. Provided cardiac diet, daily weights, monitored in's and O's. Patients symptom improved with medical management. Patient was evaluated by physical therapy and recommended home health. Discharge plan and management was thoroughly discussed with the patient. Patient was recommended to follow-up with Dr. Copeland already in 1 week. Patient was then discharged home in stable condition with outpt f/u and home health services. Disposition: [id number] HOME UNDER HOME [facility] Final Discharge Diagnosis (Prints w/discharge instructions): New onset acute systolic CHFrEF 25-30%. History of COVID-19 pneumonia on 07/2020. Diabetes mellitus type 2 A1c 7.8. Hypokalemia repleted. Elevated D-dimer, lower extremity VQ scan was negative. Essential hypertension, chronic. Hyperlipidemia, chronic. History of asthma Time spent for discharge: 40 minutes Core Measure Documentation - Palliative Care Palliative Care/ Comfort Measures: Not Applicable - Core Measures Any of the following diagnoses?: heart failure - Heart Failure Discharge Requirements FITO/ARB for LVSD if EF <40%: Yes Beta johnny at discharge: Yes Exam - Physical Exam Narrative exam: GENERAL: well-developed elderly -[place] female lying on bed appeared to be in no discomfort. HEENT: Normocephalic. Atraumatic. No conjunctival congestion or icterus. Patient has moist mucous membranes. NECK: Supple. Trachea midline. CHEST/LUNGS: Clear to auscultated bilaterally, breathing nonlabored. No wheezes crackles or rhonchi. HEART/CARDIOVASCULAR: Regular in rate and rhythm. S1 and S2 positive. ABDOMEN: Abdomen is soft, nontender. Patient has normal bowel sounds. SKIN: There is no rash. Warm and dry. NEURO: No focal motor deficit. Follows command. MUSCULOSKELETAL: No joint effusion or tenderness. EXTRIMITY: Trace pedal edema, no cyanosis or clubbing. PSYCH: Cooperative. - Constitutional Vitals: Temp Pulse Resp BP Pulse Ox 97.5 F L 77 18 139/84 99 11/14/20 11:35 11/14/20 11:35 11/14/20 11:35 11/14/20 11:35 11/14/20 11:35 Plan Activity: advance as tolerated Weight Bearing Status: Weight Bear as Tolerated Diet: low fat, low salt, diabetic Special Instructions: restrict fluid intake to (1.2 L per day ), record daily BP diary, record blood sugar diary Additional Instructions: Please follow dietary, fluid and salt restriction. Check your body weight daily. Follow-up with cook helper meat outpatient in 1 week. Monitor your blood glucose daily premeal and at bedtime. Check your BP daily in the morning. If your symptoms worsen please come back to the hospital Follow up with: PRIMARY CARE, [Primary Care Provider] - 7 Days POLLO PENDLETON MD [Staff Physician] - 7 Days LUCIANO MARTINEZ MD [Staff Physician] - 7 Days Prescriptions: AtorvaSTATin [Lipitor] 40 mg PO QHS #30 tablet Spironolactone [Aldactone] 25 mg PO QDAY #30 tablet Aspirin [Aspirin BABY CHEW TAB] 81 mg PO QDAY #30 tab.chew carvediloL [Coreg] 6.25 mg PO BID #60 tablet Losartan [Cozaar] 50 mg PO QDAY #30 tablet metFORMIN [Glucophage] 500 mg PO BIDDIAB #60 tablet Potassium Chloride [K-Dur] 20 meq PO QDAY #7 tablet Furosemide [Lasix TAB] 40 mg PO QDAY #30 tablet
[2020-11-14 16:43] VITALS: BP 148/91
[2020-11-14] MEDS ORDERED: metFORMIN 500 MG TAB PO SCH (17:00)
[2020-11-14] MEDS ORDERED: LATANOPROST 0.005% OPHTH SOLN 2.5 ML OU SCH (18:00)
[2020-11-15] MEDS ORDERED: FUROSEMIDE 40 MG TAB PO SCH (10:00)
== END 2020-11-14 23:55 | disposition home health service (06) ==
LOC: ED 16:03 → 4A 11-13 00:39
PROVIDERS: ADMIT Internal Medicine Geriatric Medicine; ATTEND Internal Medicine
DX: I11.0 Hypertensive heart disease with heart failure (principal); I50.9 Heart failure, unspecified; E11.9 Type 2 diabetes mellitus without complications; J81.1 Chronic pulmonary edema; K21.9 Gastro-esophageal reflux disease without esophagitis; J45.909 Unspecified asthma, uncomplicated; R77.8 Other specified abnormalities of plasma proteins; K76.9 Liver disease, unspecified; E78.5 Hyperlipidemia, unspecified; N28.89 Other specified disorders of kidney and ureter; Z79.899 Other long term (current) drug therapy; Z98.890 Other specified postprocedural states; Z79.82 Long term (current) use of aspirin; Z79.4 Long term (current) use of insulin; Z86.16 Personal history of COVID-19
CPT/HCPCS: 36415; 71045; 80048; 80053; 81001; 82550; 82553; 82805; 82962; 83036; 83735; 83880; 84100; 84484; 85025; 85379; 87641; 93005; 93306; 93970; 96372; 96374; 96376; 97161; 99285; A9270; G0378; J1650; J1940; 85007; J1815

== ENCOUNTER 2020-12-31 17:39 | Observation (INO) | payer MEDICARE ==
[2020-12-31 19:01] LABS: Basophils % (Auto) 0.9 % (0.0-1.8); Eosinophils # (Auto) 0.2 K/mm3 (0.0-0.4); Eosinophils % (Auto) 4.3 % (0.0-4.3); Hematocrit 36.9 % (30.3-42.9); Hemoglobin 12.3 gm/dl (10.1-14.3); Lymphocytes # (Auto) 1.4 K/mm3 (1.2-5.4); Mean Corpuscular HGB Conc 33 % (30-34); Mean Corpuscular Volume 91 fl (79-97); Monocytes # (Auto) 0.4 K/mm3 (0.0-0.8); Monocytes % (Auto) 11.7 % (0.0-7.3); Platelet Count 133 K/mm3 (140-440); Red Blood Count 4.05 M/mm3 (3.65-5.03); Red Cell Distribution Width 16.1 % (13.2-15.2)
[2020-12-31 19:21] LABS: Alanine Aminotransferase 16 units/L (7-56); Albumin 4.2 g/dL (3.9-5); BUN/Creatinine Ratio 32; Blood Urea Nitrogen 32 mg/dL (7-17); Calcium 9.4 mg/dL (8.4-10.2); Hemolysis Index 10
--- NOTE | 2020-12-31 19:39 | XRay Report ---
CHEST 2 VIEWS INDICATION / CLINICAL INFORMATION: chest pain. COMPARISON: 11/12/2020 FINDINGS: SUPPORT DEVICES: None. HEART / MEDIASTINUM: No significant abnormality. LUNGS / PLEURA: No significant pulmonary or pleural abnormality. No pneumothorax. ADDITIONAL FINDINGS: No significant additional findings. IMPRESSION: No significant abnormality. Signer Name: Rich Murray MD FACR Signed: 12/31/2020 7:34 PM Workstation Name: [id number]
--- NOTE | 2020-12-31 20:12 | Event Note ---
ED Screening Note Date of service: 12/31/20 Time: 20:09 ED Screening Note: 70-year-old female patient with history of diabetes, hypertension, asthma, hyperlipidemia, congestive heart failure, asthma, and pneumonia secondary to COVID-19 presents to the emergency department with complaints of chest pain, fatigue, and dizziness worsening for approximately 1 week. Patient describes the chest pain as "a lot of pressure." Patient has been hospitalized for congestive heart failure twice this year. Her last ejection fraction was 25% to 30%. States she has been compliant with her medications. Yesterday, she held her blood pressure medication because her blood pressure was low. Patient has b een experiencing intermittent swelling of her feet. Patient was evaluated by her primary care provider today, who sent her to the emergency department for further evaluation. General: Awake, appropriately interactive, no acute distress. Neck: Supple. Full range of motion intact. Cardiovascular: Normal peripheral perfusion. Pulmonary: No respiratory distress. Patient is speaking normally without use of accessory muscles. Skin: No apparent rashes or lesions. Neurological: No facial asymmetry. Speech is clear. Follows commands. Patient is alert and oriented. Musculoskeletal: Moves all four extremities spontaneously with normal range of motion. Psych: Cooperative. Appropriate mood and affect. I have greeted and performed a focused rapid initial assessment of this patient. A comprehensive ED assessment and evaluation of the patient, analysis of all test results, and completion of the medical decision-making process will be conducted by additional ED providers. This initial assessment/diagnostic orders/clinical plan/treatment(s) is/are subject to change based on patients health status, clinical progression and re-assessment. Further treatment and workup at subsequent clinical provider's discretion. Patient/guardian urged not to elope from the ED as their condition may be serious if not clinically assessed and managed.
--- NOTE | 2021-01-01 02:57 | Emergency Department Report ---
ED Chest Pain HPI - General Chief Complaint: Chest Pain Stated Complaint: CHF, DIZZY, CHEST PAIN, FATIGUE PUI?: No Time Seen by Provider: 01/01/21 02:41 Source: patient Mode of arrival: Ambulatory Limitations: No Limitations - History of Present Illness Initial Comments: Patient is a 70-year-old female who presents emergency room complaints of dizziness, chest pain and fatigue. Patient states well over to 3 days. Patient symptoms worsen. Patient states that her dizziness is better with rest and worse with movement and exertion. Patient states that her chest pain is better with rest worse with exertion. Patient states her fatigue is better with rest. Patient states she is not been feeling well for a while. Patient states she has a history of congestive heart failure/congestive heart failure is flared up. Patient denies fever or chills. Patient denies nausea vomiting. Patient denies diaphoresis. Patient complains of shortness of breath at times. Patient states shortness breath better with rest and worse with exertion. Patient denies recent travel. Patient denies recent international travel. Patient denies exposure to the novel coronavirus. Patient denies sick contacts. Patient denies fever and chills. Patient denies cough. Patient denies diarrhea. Patient denies coming in contact with anybody with symptoms of the novel coronavirus. MD Complaint: chest pain -: Sudden Pain Location: substernal Pain Radiation: none Severity: severe Severity scale (0 -10): 8 Quality: sharp Consistency: constant Improves With: rest Worsens With: exertion re: dyspnea. denies: nausea, vomting, diaphoresis Other Symptoms: denies: cough, fever, syncope, rash, acid taste in mouth, leg swelling, palpitations, burping Treatments Prior to Arrival: none Aspirin use within the Past 7 Days: (1) Yes - Related Data On Oral Contraceptives: No Home Medications Medication Instructions Recorded Confirmed Last Taken ALBUTEROL NEB's [Proventil 0.083% 2 puff IH BID 11/13/20 11/13/20 Unknown NEBS] Fluticasone/Umeclidin/Vilanter 1 each IH DAILY 11/13/20 11/13/20 Unknown [Trelegy Ellipta 100-62.5-25] Pantoprazole [Protonix TAB] 40 mg PO QDAY 11/13/20 11/13/20 Unknown Previous Rx's Medication Instructions Recorded Last Taken Type Aspirin [Aspirin BABY CHEW TAB] 81 mg PO QDAY #30 tab.chew 11/14/20 Unknown Rx AtorvaSTATin [Lipitor] 40 mg PO QHS #30 tablet 11/14/20 Unknown Rx Furosemide [Lasix TAB] 40 mg PO QDAY #30 tablet 11/14/20 Unknown Rx Losartan [Cozaar] 50 mg PO QDAY #30 tablet 11/14/20 Unknown Rx Potassium Chloride [K-Dur] 20 meq PO QDAY #7 tablet 11/14/20 Unknown Rx Spironolactone [Aldactone] 25 mg PO QDAY #30 tablet 11/14/20 Unknown Rx carvediloL [Coreg] 6.25 mg PO BID #60 tablet 11/14/20 Unknown Rx metFORMIN [Glucophage] 500 mg PO BIDDIAB #60 tablet 11/14/20 Unknown Rx Allergies Allergy/AdvReac Type Severity Reaction Status Date / Time No Known Allergies Allergy Unverified 09/13/18 16:10 Heart Score - HEART Score History: Moderately suspicious EKG: Non-specific Age: > 65 Risk factors: > 3 risk factors or hx of atherosclerotic disease Troponin: < normal limit HEART Score: 6 - EKG Read Time Time EKG Completed: 03:02 EKG Read Time: 03:03 ED Review of Systems ROS: Stated complaint: CHF, DIZZY, CHEST PAIN, FATIGUE Other details as noted in HPI Constitutional: malaise. denies: chills, fever Eyes: denies: eye pain, eye discharge, vision change ENT: denies: ear pain, throat pain Respiratory: shortness of breath. denies: cough, wheezing Cardiovascular: chest pain. denies: palpitations Endocrine: no symptoms reported Gastrointestinal: denies: abdominal pain, nausea, diarrhea Genitourinary: denies: urgency, dysuria, discharge Musculoskeletal: denies: back pain, joint swelling, arthralgia Skin: denies: rash, lesions Neurological: as per HPI. denies: headache, weakness, paresthesias Psychiatric: denies: anxiety, depression Hematological/Lymphatic: denies: easy bleeding, easy bruising ED Past Medical Hx - Past Medical History Previous Medical History?: Yes Hx Hypertension: Yes Hx Diabetes: Yes Hx Asthma: Yes Additional medical history: Legally Blind, bladder CA - Surgical History Past Surgical History?: Yes Additional Surgical History: Bladder surgery for bladder cancer removal and fibroid removal - Family History Family history: no significant - Social History Smoking Status: Never Smoker Substance Use Type: None - Medications Home Medications: Home Medications Medication Instructions Recorded Confirmed Last Taken Type ALBUTEROL NEB's [Proventil 0.083% 2 puff IH BID 11/13/20 11/13/20 Unknown History NEBS] Fluticasone/Umeclidin/Vilanter 1 each IH DAILY 11/13/20 11/13/20 Unknown History [Trelegy Ellipta 100-62.5-25] Pantoprazole [Protonix TAB] 40 mg PO QDAY 11/13/20 11/13/20 Unknown History Aspirin [Aspirin BABY CHEW TAB] 81 mg PO QDAY #30 tab.chew 11/14/20 Unknown Rx AtorvaSTATin [Lipitor] 40 mg PO QHS #30 tablet 11/14/20 Unknown Rx Furosemide [Lasix TAB] 40 mg PO QDAY #30 tablet 11/14/20 Unknown Rx Losartan [Cozaar] 50 mg PO QDAY #30 tablet 11/14/20 Unknown Rx Potassium Chloride [K-Dur] 20 meq PO QDAY #7 tablet 11/14/20 Unknown Rx Spironolactone [Aldactone] 25 mg PO QDAY #30 tablet 11/14/20 Unknown Rx carvediloL [Coreg] 6.25 mg PO BID #60 tablet 11/14/20 Unknown Rx metFORMIN [Glucophage] 500 mg PO BIDDIAB #60 tablet 11/14/20 Unknown Rx ED Physical Exam - General Limitations: No Limitations General appearance: alert, in no apparent distress - Head Head exam: Present: atraumatic, normocephalic - Eye Eye exam: Present: normal appearance - ENT ENT exam: Present: mucous membranes moist - Neck Neck exam: Present: normal inspection - Respiratory Respiratory exam: Present: normal lung sounds bilaterally. Absent: respiratory distress, chest wall tenderness - Cardiovascular Cardiovascular Exam: Present: regular rate, normal rhythm. Absent: systolic murmur, diastolic murmur, rubs, gallop - GI/Abdominal GI/Abdominal exam: Present: soft, normal bowel sounds - Extremities Exam Extremities exam: Present: normal inspection - Back Exam Back exam: Present: normal inspection - Neurological Exam Neurological exam: Present: alert, oriented X3 - Psychiatric Psychiatric exam: Present: normal affect, normal mood - Skin Skin exam: Present: warm, dry, intact, normal color. Absent: rash ED Course Vital Signs 06/16/21 06/17/21 18:22 02:43 Temperature 98.3 F Pulse Rate 84 86 Respiratory 16 16 Rate Blood Pressure 115/80 Blood Pressure 158/86 [Right] O2 Sat by Pulse 97 96 Oximetry - Reevaluation(s) Reevaluation #1: I discussed all results with patient. I discussed plan of care with patient. Patient agrees with plan of care and admission. Patient to be admitted to the hospitalist service. 01/01/21 03:13 - Consultations Consultation #1: Hospitalist consulted for admission. Hospitalist to admit patient. 01/01/21 03:13 SAVANNAH score - [place] Score Age > 65: (1) Yes Aspirin use within the Past 7 Days: (1) Yes 3 or more CAD Risk Factors: (1) Yes 2 or more Angina events in past 24 hrs: (1) Yes Known CAD with more than 50% Stenosis: (0) No Elevated Cardiac Markers: (0) No ST Deviation Greater than 0.5mm: (0) No SAVANNAH Score: 4 ED Medical Decision Making - Lab Data Result diagrams: 12/31/20 18:43 12/31/20 18:43 - EKG Data -: EKG Interpreted by Me EKG shows normal: sinus rhythm, axis, intervals, QRS complexes, ST-T waves Rate: normal - Radiology Data Radiology results: report reviewed, image reviewed interpreted by me: Chest x-ray: No pneumonia, no pneumothorax, no foreign body, no osseous findings, no acute findings CHEST 2 VIEWS INDICATION / CLINICAL INFORMATION: chest pain. COMPARISON: 11/12/2020 FINDINGS: SUPPORT DEVICES: None. HEART / MEDIASTINUM: No significant abnormality. LUNGS / PLEURA: No significant pulmonary or pleural abnormality. No pneumothorax. ADDITIONAL FINDINGS: No significant additional findings. IMPRESSION: No significant abnormality.. - Medical Decision Making Patient is a 70-year-old female that presents emergency room with complaints of chest pain and shortness of breath and dizziness and fatigue. Patient has cardiac risk factors are high. Patient heart score is elevated. Patient's SAVANNAH score is elevated. Patient had labs done which were essentially unremarkable patient initial troponin was negative. Patient chest x-ray was negative. Patient's EKG shows no acute findings. Patient admitted to the hospital service for further evaluation treatment. Patient also admitted to the hospital service to rule out ACS. Critical care time documented due to the multiple reassessments, prolonged time at the bedside, interpretation of diagnostics and labs. - Differential Diagnosis Chest pain, dizziness, shortness breath, ACS, CHF, Critical Care Time: Yes Critical care time in (mins) excluding proc time.: 35 Critical care attestation.: If time is entered above; I have spent that time in minutes in the direct care of this critically ill patient, excluding procedure time. Critical Care Time: 35 MINUTES ED Disposition Clinical Impression: Dizziness, SOB (shortness of breath) Chest pain Qualifiers: Chest pain type: unspecified Qualified Code(s): R07.9 - Chest pain, unspecified Disposition: DC-09 OP ADMIT IP TO THIS HOSP Is pt being admited?: Yes Does the pt Need Aspirin: No Condition: Critical Time of Disposition: 03:14
[2021-01-01] MEDS ORDERED: traMADol 50 MG TAB PO PRN (04:12)
[2021-01-01] MEDS ORDERED: ACETAMINOPHEN 325 MG TAB PO PRN ×2 (04:12)
[2021-01-01] MEDS ORDERED: NITROGLYCERIN 0.4 MG TAB SUBL SL PRN (04:12)
[2021-01-01] MEDS ORDERED: ONDANSETRON 4 MG/2 ML INJ IV PRN (04:12)
[2021-01-01] MEDS ORDERED: hydrALAZINE 20 MG/1 ML INJ IV PRN (04:18)
--- NOTE | 2021-01-01 04:24 | History and Physical Report ---
History of Present Illness Date of examination: 01/01/21 Date of admission: 01/01/21 Chief complaint: Chest pain History of present illness: 70-year-old female with past medical history of diabetes hypertension asthma hyperlipidemia congestive heart failure asthma and pneumonia was brought to the hospital because of chest pain fatigue and dizziness worsening for approximately 1 week. Chest pain described as a lot of pressure 5 out of 10 left-sided. Patient states that her dizziness is better with rest and worse with movement and exertion. Patient states that her chest pain is better with rest worse with exertion. Patient states her fatigue is better with rest. Patient states she is not been feeling well for a while. Patient denies fever or chills. Patient denies nausea vomiting. Patient denies diaphoresis. Patient complains of shortness of breath at times. In the emergency room initial cardiac enzyme is negative troponin is 0.010, proBNP is 658.3 Past History Past Medical History: diabetes, heart failure, hypertension, hyperlipidemia, other (Asthma pneumonia) Medications and Allergies Allergies Allergy/AdvReac Type Severity Reaction Status Date / Time No Known Allergies Allergy Unverified 09/13/18 16:10 Home Medications Medication Instructions Recorded Confirmed Last Taken Type ALBUTEROL NEB's [Proventil 0.083% 2 puff IH BID 11/13/20 11/13/20 Unknown History NEBS] Fluticasone/Umeclidin/Vilanter 1 each IH DAILY 11/13/20 11/13/20 Unknown History [Trejose alfredo Ellipta 100-62.5-25] Pantoprazole [Protonix TAB] 40 mg PO QDAY 11/13/20 11/13/20 Unknown History Aspirin [Aspirin BABY CHEW TAB] 81 mg PO QDAY #30 tab.chew 11/14/20 Unknown Rx AtorvaSTATin [Lipitor] 40 mg PO QHS #30 tablet 11/14/20 Unknown Rx Furosemide [Lasix TAB] 40 mg PO QDAY #30 tablet 11/14/20 Unknown Rx Losartan [Cozaar] 50 mg PO QDAY #30 tablet 11/14/20 Unknown Rx Potassium Chloride [K-Dur] 20 meq PO QDAY #7 tablet 11/14/20 Unknown Rx Spironolactone [Aldactone] 25 mg PO QDAY #30 tablet 11/14/20 Unknown Rx carvediloL [Coreg] 6.25 mg PO BID #60 tablet 11/14/20 Unknown Rx metFORMIN [Glucophage] 500 mg PO BIDDIAB #60 tablet 11/14/20 Unknown Rx Active Meds: Active Medications Acetaminophen (Acetaminophen 325 Mg Tab) 650 mg PO Q4H PRN PRN Reason: Pain MILD(1-3)/Fever >100.5/WADE Acetaminophen (Acetaminophen 325 Mg Tab) 650 mg PO Q6H PRN PRN Reason: Pain, Mild (1-3) Albuterol (Albuterol 2.5 Mg/3 Ml Nebu) mg IH BID [place] Aspirin (Aspirin 81 Mg Tab Chew) 81 mg PO QDAY [place] Atorvastatin Calcium (Atorvastatin 40 Mg Tab) 40 mg PO QHS [place] Atorvastatin Calcium (Atorvastatin 40 Mg Tab) 40 mg PO QHS [place] Carvedilol (Carvedilol 6.25 Mg Tab) 6.25 mg PO BID [place] Furosemide (Furosemide 40 Mg Tab) 40 mg PO QDAY [facility] Heparin Sodium (Porcine) (Heparin 5,000 Unit/1 Ml Vial) 5,000 unit SUB-Q Q8HR [facility] Hydralazine HCl (Hydralazine 20 Mg/1 Ml Inj) 10 mg IV Q6H PRN PRN Reason: htn Losartan Potassium (Losartan 50 Mg Tab) 50 mg PO QDAY [place] Metformin HCl (Metformin 500 Mg Tab) 500 mg PO BIDDIAB [facility] Miscellaneous Medication (Fluticasone/Umeclidin/Vilanter [Trelegy Ellipta 100-62.5-25]) 1 each IH DAILY [facility] Nitroglycerin (Nitroglycerin 0.4 Mg Tab Subl) 0.4 mg SL Q5M PRN PRN Reason: Chest Pain Ondansetron HCl (Ondansetron 4 Mg/2 Ml Inj) 4 mg IV Q8H PRN PRN Reason: Nausea And Vomiting Pantoprazole Sodium (Pantoprazole 40 Mg Tab) 40 mg PO QDAY [place] Sodium Chloride (Sodium Chloride 0.9% 10 Ml Flush Syringe) 10 ml IV BID [facility] Sodium Chloride (Sodium Chloride 0.9% 10 Ml Flush Syringe) 10 ml IV PRN PRN PRN Reason: LINE FLUSH Sodium Chloride (Sodium Chloride 0.9% 10 Ml Flush Syringe) 10 ml IV PRN PRN PRN Reason: LINE FLUSH Spironolactone (Spironolactone 25 Mg Tab) 25 mg PO QDAY [place] Tramadol HCl (Tramadol 50 Mg Tab) 50 mg PO Q6H PRN PRN Reason: Pain, Moderate (4-6) Review of Systems Constitutional: fatigue Cardiovascular: chest pain, shortness of breath, other (Dizziness) Respiratory: shortness of breath Exam - Constitutional Vitals: Temp Pulse Resp BP Pulse Ox 98.3 F 86 16 158/86 96 12/31/20 18:22 01/01/21 02:43 01/01/21 02:43 01/01/21 02:43 01/01/21 02:43 General appearance: Present: no acute distress, well-nourished - EENT Eyes: Present: PERRL ENT: hearing intact, clear oral mucosa - Neck Neck: Present: supple, normal ROM - Respiratory Respiratory effort: normal Respiratory: bilateral: diminished - Cardiovascular Heart Sounds: Present: S1 & S2. Absent: rub, click - Extremities Extremities: pulses symmetrical, No edema Peripheral Pulses: within normal limits - Abdominal General gastrointestinal: Present: soft, non-tender, non-distended, normal bowel sounds Female genitourinary: Present: normal - Integumentary Integumentary: Present: clear, warm, dry - Musculoskeletal Musculoskeletal: gait normal, strength equal bilaterally - Psychiatric Psychiatric: appropriate mood/affect, intact judgment & insight - Neurologic Neurologic: CNII-XII intact, moves all extremities HEART Score - HEART Score EKG: Non-specific Age: > 65 Risk factors: > 3 risk factors or hx of atherosclerotic disease Troponin: Troponin T 0.010 ng/mL (0.00-0.029) 12/31/20 21:16 Troponin: < normal limit Results - Labs CBC & Chem 7: 12/31/20 18:43 12/31/20 18:43 Labs: Laboratory Last Values WBC 3.7 K/mm3 (4.5-11.0) L 12/31/20 18:43 RBC 4.05 M/mm3 (3.65-5.03) 12/31/20 18:43 Hgb 12.3 gm/dl (10.1-14.3) 12/31/20 18:43 Hct 36.9 % (30.3-42.9) 12/31/20 18:43 MCV 91 fl (79-97) 12/31/20 18:43 MCH 30 pg (28-32) 12/31/20 18:43 MCHC 33 % (30-34) 12/31/20 18:43 RDW 16.1 % (13.2-15.2) H 12/31/20 18:43 Plt Count 133 K/mm3 (140-440) L 12/31/20 18:43 Lymph % (Auto) 37.0 % (13.4-35.0) H 12/31/20 18:43 [place] % (Auto) 11.7 % (0.0-7.3) H 12/31/20 18:43 Eos % (Auto) 4.3 % (0.0-4.3) 12/31/20 18:43 Baso % (Auto) 0.9 % (0.0-1.8) 12/31/20 18:43 Lymph # (Auto) 1.4 K/mm3 (1.2-5.4) 12/31/20 18:43 [place] # (Auto) 0.4 K/mm3 (0.0-0.8) 12/31/20 18:43 Eos # (Auto) 0.2 K/mm3 (0.0-0.4) 12/31/20 18:43 Baso # (Auto) 0.0 K/mm3 (0.0-0.1) 12/31/20 18:43 Seg Neutrophils % 46.1 % (40.0-70.0) 12/31/20 18:43 Seg Neutrophils # 1.7 K/mm3 (1.8-7.7) L 12/31/20 18:43 Sodium 138 mmol/L (137-145) 12/31/20 18:43 Potassium 4.5 mmol/L (3.6-5.0) 12/31/20 18:43 Chloride 100.2 mmol/L (98-107) 12/31/20 18:43 Carbon Dioxide 25 mmol/L (22-30) 12/31/20 18:43 Anion Gap 17 mmol/L 12/31/20 18:43 BUN 32 mg/dL (7-17) H 12/31/20 18:43 Creatinine 1.0 mg/dL (0.6-1.2) 12/31/20 18:43 Estimated GFR 55 ml/min 12/31/20 18:43 BUN/Creatinine Ratio 32 % 12/31/20 18:43 Glucose 112 mg/dL (65-100) H 12/31/20 18:43 Calcium 9.4 mg/dL (8.4-10.2) 12/31/20 18:43 Total Bilirubin 1.00 mg/dL (0.1-1.2) 12/31/20 18:43 AST 15 units/L (5-40) 12/31/20 18:43 ALT 16 units/L (7-56) 12/31/20 18:43 Alkaline Phosphatase 95 units/L (35-129) 12/31/20 18:43 Troponin T 0.010 ng/mL (0.00-0.029) 12/31/20 21:16 NT-Pro-B Natriuret Pep 658.3 pg/mL (0-900) 12/31/20 21:16 Total Protein 7.3 g/dL (6.3-8.2) 12/31/20 18:43 Albumin 4.2 g/dL (3.9-5) 12/31/20 18:43 Albumin/Globulin Ratio 1.4 % 12/31/20 18:43 TSH 2.830 mlU/mL (0.270-4.200) 12/31/20 21:16 - Imaging and Cardiology Chest x-ray: report reviewed Assessment and Plan VTE prophylaxis?: Chemical Plan of care discussed with patient/family: Yes - Patient Problems (1) Acute coronary syndrome Current Visit: Yes Status: Acute Plan to address problem: Admit the patient to the medical telemetry. Aspirin 81 mg p.o. daily. Lipitor 40 mg p.o. daily. Nitroglycerin as needed. Due to the serial cardiac enzyme. We also do a echocardiogram and consult cardiology for evaluation (2) CHF (congestive heart failure) Current Visit: No Status: Acute Qualifiers: Heart failure type: unspecified Heart failure chronicity: acute Qualified Code(s): I50.9 - Heart failure, unspecified Plan to address problem: Stable. We will continue the home medication Lasix 40 mg p.o. daily. Fluid restriction maintain input output echocardiogram (3) Asthma Current Visit: No Status: Chronic Qualifiers: Asthma severity: mild Asthma persistence: intermittent Asthma complication type: uncomplicated Qualified Code(s): J45.20 - Mild intermittent asthma, uncomplicated Plan to address problem: Stable. Oxygen via nasal cannula 3 L/min. Albuterol via nebulizer every 4 hours as needed. We will continue the home medication (4) DM2 (diabetes mellitus, type 2) Current Visit: No Status: Chronic Plan to address problem: Metformin 500 mg p.o. twice daily. We will continue the home medication. We will also put the patient on insulin sliding scale and repeat BMP in the morning (5) Essential (primary) hypertension Current Visit: No Status: Chronic Plan to address problem: Coreg 6.25 mg p.o. twice daily. Losartan 50 mg p.o. daily. Hydralazine 10 mg every 6 hours as needed. We will monitor the blood pressure closely (6) HLD (hyperlipidemia) Current Visit: No Status: Chronic Qualifiers: Hyperlipidemia type: mixed hyperlipidemia Qualified Code(s): E78.2 - Mixed hyperlipidemia Plan to address problem: Lipitor 40 mg p.o. daily. Recheck the lipid panel (7) DVT prophylaxis Current Visit: No Status: Acute Plan to address problem: Heparin 5000 units subcu every 8 hours for DVT prophylaxis. Protonix 40 mg p.o. daily for GI prophylaxis. Patient is a full code
[2021-01-01 05:05] LABS: Basophils % (Auto) 0.5 % (0.0-1.8); Eosinophils # (Auto) 0.2 K/mm3 (0.0-0.4); Eosinophils % (Auto) 4.9 % (0.0-4.3); Hematocrit 34.3 % (30.3-42.9); Hemoglobin 11.3 gm/dl (10.1-14.3); Lymphocytes # (Auto) 1.3 K/mm3 (1.2-5.4); Lymphocytes % (Auto) 35.9 % (13.4-35.0); Mean Corpuscular HGB Conc 33 % (30-34); Mean Corpuscular Volume 92 fl (79-97); Monocytes # (Auto) 0.5 K/mm3 (0.0-0.8); Monocytes % (Auto) 13.6 % (0.0-7.3); Platelet Count 114 K/mm3 (140-440); Red Blood Count 3.73 M/mm3 (3.65-5.03)
[2021-01-01 05:19] LABS: BUN/Creatinine Ratio 41; Blood Urea Nitrogen 37 mg/dL (7-17); Calcium 9.2 mg/dL (8.4-10.2); Hemolysis Index 4
[2021-01-01] MEDS: HEPARIN 5,000 UNIT/1 ML VIAL SUB-Q SCH ×3 (06:09→22:22)
[2021-01-01] MEDS: metFORMIN 500 MG TAB PO SCH ×2 (08:44→17:08)
[2021-01-01] MEDS: carvediloL 6.25 MG TAB PO SCH ×2 (08:49→17:08)
--- NOTE | 2021-01-01 09:36 | Consultation ---
History of Present Illness Consult date: 01/01/21 Requesting physician: VIRI DOHERTY Consult reason: chest pain History of present illness: This patient is a 70-year-old female with significant history of heart failure with reduced ejection fraction, dilated cardiomyopathy, hypertension, diabetes, asthma, recent pneumonia. She is followed by Dr Eaton with [facility] heart specialists. Patient presents to [facility] ER with complaint of chest pain and fatigue getting progressively worse over 1 week. Chest pain is described as 5 out of 10 pressure substernal to left-sided. Fatigue is exacerbated by exertion and relieved with rest. Cardiology is consulted for chest pain. At time of interview chest pain is resolved. Patient denies any abdominal pain, N/V/D/recent illness or known exposures. MPI stress test (01-05): Is negative for reversible ischemia. Estimated EF 43%. Echocardiogram reviewed (11/13/2020): LVEF is 25 to 30%. LV SF is moderately to severely decreased. Left ventricle is borderline dilated. Right ventricle is mildly dilated. Right ventricle is moderately hypokinetic. Mild MR. Moderate TR. RVSP 50 to 55 mmHg. Past History Past Medical History: diabetes, heart failure, hypertension, hyperlipidemia, other (Asthma pneumonia) Medications and Allergies Allergies Allergy/AdvReac Type Severity Reaction Status Date / Time No Known Allergies Allergy Unverified 09/13/18 16:10 Home Medications Medication Instructions Recorded Confirmed Last Taken Type ALBUTEROL NEB's [Proventil 0.083% 2 puff IH BID 11/13/20 11/13/20 Unknown History NEBS] Fluticasone/Umeclidin/Vilanter 1 each IH DAILY 11/13/20 11/13/20 Unknown History [Matthew Ellipta 100-62.5-25] Pantoprazole [Protonix TAB] 40 mg PO QDAY 11/13/20 11/13/20 Unknown History Aspirin [Aspirin BABY CHEW TAB] 81 mg PO QDAY #30 tab.chew 11/14/20 Unknown Rx AtorvaSTATin [Lipitor] 40 mg PO QHS #30 tablet 11/14/20 Unknown Rx Furosemide [Lasix TAB] 40 mg PO QDAY #30 tablet 11/14/20 Unknown Rx Losartan [Cozaar] 50 mg PO QDAY #30 tablet 11/14/20 Unknown Rx Potassium Chloride [K-Dur] 20 meq PO QDAY #7 tablet 11/14/20 Unknown Rx Spironolactone [Aldactone] 25 mg PO QDAY #30 tablet 11/14/20 Unknown Rx carvediloL [Coreg] 6.25 mg PO BID #60 tablet 11/14/20 Unknown Rx metFORMIN [Glucophage] 500 mg PO BIDDIAB #60 tablet 11/14/20 Unknown Rx Active Meds: Active Medications Acetaminophen (Acetaminophen 325 Mg Tab) 650 mg PO Q4H PRN PRN Reason: Pain MILD(1-3)/Fever >100.5/WADE Albuterol (Albuterol 2.5 Mg/3 Ml Nebu) 2.5 mg IH BIDRT [facility] Aspirin (Aspirin 81 Mg Tab Chew) 81 mg PO QDAY [facility] Atorvastatin Calcium (Atorvastatin 40 Mg Tab) 40 mg PO QHS [facility] Bumetanide (Bumetanide 1 Mg Tab) 1 mg PO QDAY [facility] Carvedilol (Carvedilol 6.25 Mg Tab) 6.25 mg PO BID@0800,1700 [facility] Last Admin: 01/01/21 08:49 Dose: 6.25 mg Documented by: Heparin Sodium (Porcine) (Heparin 5,000 Unit/1 Ml Vial) 5,000 unit SUB-Q Q8HR [facility] Last Admin: 01/01/21 06:09 Dose: 5,000 unit Documented by: Hydralazine HCl (Hydralazine 20 Mg/1 Ml Inj) 10 mg IV Q6H PRN PRN Reason: htn Isosorbide Mononitrate (Isosorbide Mononitrate Er 30 Mg Tab) 30 mg PO QDAY [facility] Losartan Potassium (Losartan 50 Mg Tab) 50 mg PO QDAY [facility] Metformin HCl (Metformin 500 Mg Tab) 500 mg PO BIDDIAB [facility] Last Admin: 01/01/21 08:44 Dose: 500 mg Documented by: Miscellaneous Medication (Fluticasone/Umeclidin/Vilanter [Trelegy Ellipta 100-62.5-25]) 1 each IH DAILY [facility] Nitroglycerin (Nitroglycerin 0.4 Mg Tab Subl) 0.4 mg SL Q5M PRN PRN Reason: Chest Pain Ondansetron HCl (Ondansetron 4 Mg/2 Ml Inj) 4 mg IV Q8H PRN PRN Reason: Nausea And Vomiting Pantoprazole Sodium (Pantoprazole 40 Mg Tab) 40 mg PO QDAY [place] Sodium Chloride (Sodium Chloride 0.9% 10 Ml Flush Syringe) 10 ml IV BID [place] Sodium Chloride (Sodium Chloride 0.9% 10 Ml Flush Syringe) 10 ml IV PRN PRN PRN Reason: LINE FLUSH Sodium Chloride (Sodium Chloride 0.9% 10 Ml Flush Syringe) 10 ml IV PRN PRN PRN Reason: LINE FLUSH Spironolactone (Spironolactone 25 Mg Tab) 25 mg PO QDAY [facility] Tramadol HCl (Tramadol 50 Mg Tab) 50 mg PO Q6H PRN PRN Reason: Pain, Moderate (4-6) Review of Systems Constitutional: no weight loss, no weight gain, no fever, no chills, no sweats Ears, nose, mouth and throat: no ear pain, no ear discharge, no nose pain, no nasal congestion, no nasal discharge, no sinus pressure Cardiovascular: chest pain, dyspnea on exertion, decreased exercise tolerance, no orthopnea, no palpitations, no rapid/irregular heart beat, no edema, no syncope, no lightheadedness, no shortness of breath, no paroxysmal nocturnal dyspnea, no claudication, no phlebitis, no high blood pressure, no leg edema Respiratory: no cough, no hemoptysis, no shortness of breath Gastrointestinal: no abdominal pain, no nausea, no vomiting, no diarrhea Genitourinary Female: no flank pain Musculoskeletal: no neck stiffness, no neck pain, no shooting arm pain, no arm numbness/tingling, no low back pain, no shooting leg pain Integumentary: no rash, no pruritis, no redness, no sores, no wounds Neurological: no head injury, no paralysis, no weakness, no parathesias, no numbness, no tingling, no seizures, no syncope Psychiatric: no anxiety Endocrine: no cold intolerance, no heat intolerance Hematologic/Lymphatic: no easy bruising, no easy bleeding Allergic/Immunologic: no urticaria Physical Examination Last Vital Signs Temp 98.2 F 01/01/21 05:39 Pulse 76 01/01/21 08:49 Resp 18 01/01/21 05:48 BP 118/65 01/01/21 08:49 Pulse Ox 100 01/01/21 05:39 General appearance: no acute distress HEENT: Positive: PERRL, Normocephaly, Mucus Membranes Moist Neck: Positive: neck supple, trachea midline Cardiac: Positive: Reg Rate and Rhythm, S1/S2 Lungs: Positive: Normal Exam, Normal Breath Sounds Neuro: Positive: Grossly Intact Abdomen: Positive: Unremarkable, Soft Skin: Negative: Rash, Wound Extremities: Present: upper extr. pulses, lower extr. pulses. Absent: edema Results 01/01/21 04:33 01/01/21 04:33 Cardiac Enzymes 12/31/20 Range/Units 18:43 AST 15 (5-40) units/L CBC 12/31/20 01/01/21 Range/Units 18:43 04:33 WBC 3.7 L 3.5 L (4.5-11.0) K/mm3 RBC 4.05 3.73 (3.65-5.03) M/mm3 Hgb 12.3 11.3 (10.1-14.3) gm/dl Hct 36.9 34.3 (30.3-42.9) % Plt Count 133 L 114 L (140-440) K/mm3 Lymph # (Auto) 1.4 1.3 (1.2-5.4) K/mm3 [place] # (Auto) 0.4 0.5 (0.0-0.8) K/mm3 Eos # (Auto) 0.2 0.2 (0.0-0.4) K/mm3 Baso # (Auto) 0.0 0.0 (0.0-0.1) K/mm3 Comprehensive Metabolic Panel 12/31/20 01/01/21 Range/Units 18:43 04:33 Sodium 138 136 L (137-145) mmol/L Potassium 4.5 4.3 (3.6-5.0) mmol/L Chloride 100.2 99.1 (98-107) mmol/L Carbon Dioxide 25 25 (22-30) mmol/L BUN 32 H 37 H (7-17) mg/dL Creatinine 1.0 0.9 (0.6-1.2) mg/dL Glucose 112 H 261 H (65-100) mg/dL Calcium 9.4 9.2 (8.4-10.2) mg/dL AST 15 (5-40) units/L ALT 16 (7-56) units/L Alkaline Phosphatase 95 (35-129) units/L Total Protein 7.3 (6.3-8.2) g/dL Albumin 4.2 (3.9-5) g/dL - Imaging and Cardiology Echo: report reviewed EKG: report reviewed, image reviewed EKG interpretations - Telemetry EKG Rhythm: Sinus Rhythm - EKG Sinus rhythms and dysrhythmias: sinus rhythm Assessment and Plan Telemetry reviewed: Sinus rhythm 74. No events Chest pain * Patient is currently chest pain-free. Troponins are negative x2. AMI ruled out. Continue to monitor on telemetry * MPI stress test (6): Is negative for reversible ischemia. Estimated EF 43%. * Initiate Imdur 30 mg p.o. daily * Patient reports she regularly exercises on bike for approximately 45 minutes daily. Will trial minimal exertion walking with SPO2 monitor with ent nurse failure with reduced ejection fraction in setting of dilated cardiomyopathy * Echocardiogram reviewed (11/13/2020): LVEF is 25 to 30%. LV SF is moderately to severely decreased. Left ventricle is borderline dilated. Right ventricle is mildly dilated. Right ventricle is moderately hypokinetic. Mild MR. Moderate TR. RVSP 50 to 55 mmHg. * Continue goal-directed therapy with cardioprotective regimen: Aspirin 81, atorvastatin 40, Coreg 6.25 twice daily, losartan 50. * Discontinue Lasix, initiate Bumex 1 mg p.o. daily. Resume home regimen K. Dur 20 MEQ daily. repeat CBC, BMP in a.m. DVT prophylaxis * Heparin SQ Patient currently stable cardiac status. Will follow This patient was seen in conjunction with Dr. James who agrees with this assessment and plan of care - Patient Problems (1) Chest pain Current Visit: Yes Status: Acute Qualifiers: Chest pain type: unspecified Qualified Code(s): R07.9 - Chest pain, unspecified (2) Heart failure with reduced ejection fraction Current Visit: Yes Status: Acute (3) Dilated cardiomyopathy Current Visit: Yes Status: Chronic (4) Dizziness Current Visit: Yes Status: Acute (5) Pneumonia Current Visit: Yes Status: Acute Qualifiers: Pneumonia type: due to unspecified organism Laterality: right Lung location: lower lobe of lung Qualified Code(s): J18.9 - Pneumonia, unspecified organism (6) HLD (hyperlipidemia) Current Visit: Yes Status: Chronic Qualifiers: Hyperlipidemia type: mixed hyperlipidemia Qualified Code(s): E78.2 - Mixed hyperlipidemia (7) Essential (primary) hypertension Current Visit: Yes Status: Chronic
[2021-01-01] MEDS: ALBUTEROL 2.5 MG/3 ML NEBU IH SCH ×2 (09:58→20:59)
[2021-01-01] MEDS ORDERED: NON-FORMULARY EACH (Fluticasone/Umeclidin/Vilanter [Trelegy Ellipta 100-62.5-25] 1 EACH Bl IH SCH (10:00)
[2021-01-01] MEDS ORDERED: FUROSEMIDE 40 MG TAB PO SCH (10:00)
[2021-01-01] MEDS: LOSARTAN 50 MG TAB PO SCH (11:09)
[2021-01-01] MEDS: ASPIRIN 81 MG TAB CHEW PO SCH (11:10)
[2021-01-01] MEDS: PANTOPRAZOLE 40 MG TAB PO SCH (11:10)
[2021-01-01] MEDS: BUMETANIDE 1 MG TAB PO SCH (11:10)
[2021-01-01] MEDS: POTASSIUM CHLORIDE ER 20 MEQ TAB PO SCH (11:13)
[2021-01-01] MEDS: SPIRONOLACTONE 25 MG TAB PO SCH (11:13)
--- NOTE | 2021-01-01 11:16 | Event Note ---
Date: 01/01/21 Patient was seen and evaluated this morning, patient was admitted for chest discomfort. Patient states she is getting better now. Cardiology consulted. Patient admitted earlier this morning and management is as outlined in HPI.
[2021-01-01] MEDS: INSULIN LISPRO 100 UNIT/ML SUB-Q SCH ×3 (13:28→22:31)
[2021-01-01] MEDS ORDERED: IPRATROPIUM 0.02% NEBU 2.5 ML IH SCH (14:00)
[2021-01-01] MEDS ORDERED: BUDESONIDE 0.5 MG/2 ML NEBU IH SCH (20:00)
[2021-01-02] MEDS: HEPARIN 5,000 UNIT/1 ML VIAL SUB-Q SCH ×2 (06:05→14:00)
[2021-01-02] MEDS: INSULIN LISPRO 100 UNIT/ML SUB-Q SCH ×2 (07:30→11:30)
[2021-01-02] MEDS: ALBUTEROL 2.5 MG/3 ML NEBU IH SCH (07:38)
[2021-01-02] MEDS: metFORMIN 500 MG TAB PO SCH (08:00)
[2021-01-02] MEDS: carvediloL 6.25 MG TAB PO SCH (08:00)
[2021-01-02 08:51] LABS: Basophils % (Auto) 0.4 % (0.0-1.8); Eosinophils # (Auto) 0.2 K/mm3 (0.0-0.4); Eosinophils % (Auto) 5.7 % (0.0-4.3); Hematocrit 33.1 % (30.3-42.9); Hemoglobin 10.7 gm/dl (10.1-14.3); Lymphocytes # (Auto) 1.2 K/mm3 (1.2-5.4); Lymphocytes % (Auto) 42.7 % (13.4-35.0); Mean Corpuscular HGB Conc 32 % (30-34); Mean Corpuscular Volume 92 fl (79-97); Monocytes # (Auto) 0.4 K/mm3 (0.0-0.8); Monocytes % (Auto) 14.8 % (0.0-7.3); Platelet Count 107 K/mm3 (140-440); Red Blood Count 3.58 M/mm3 (3.65-5.03); Red Cell Distribution Width 15.9 % (13.2-15.2)
--- NOTE | 2021-01-02 09:04 | Progress Note ---
Assessment and Plan Telemetry reviewed: Sinus rhythm 74. No events Chest pain * Patient is currently chest pain-free. Troponins are negative x3. AMI ruled out. Continue to monitor on telemetry * MPI stress test (01-05): Is negative for reversible ischemia. Estimated EF 43%. * Continue Imdur 30mg daily * Patient reports she regularly exercises on bike for approximately 45 minutes daily. Patient does maintain O2 saturation with minimal exertion walking the floor with RN. Heart failure with reduced ejection fraction in setting of dilated cardiomyopathy * Echocardiogram reviewed (11/13/2020): LVEF is 25 to 30%. LV SF is moderately to severely decreased. Left ventricle is borderline dilated. Right ventricle is mildly dilated. Right ventricle is moderately hypokinetic. Mild MR. Moderate TR. RVSP 50 to 55 mmHg. * Continue goal-directed therapy with cardioprotective regimen: Aspirin 81, atorvastatin 40, Coreg 6.25 twice daily, losartan 50. * Continue home regimen 1 mg p.o. daily. Resume home regimen K. Dur 20 MEQ daily. repeat CBC, BMP in a.m. DVT prophylaxis * Heparin SQ Patient currently stable cardiac status, asymptomatic. AMI ruled out. Recent stress test is negative for ischemia. Patient is on appropriate medication regimen for her known cardiomyopathy. Recommend continue Imdur 30 mg p.o. daily on discharge. Patient may discharge from cardiac standpoint. Patient should follow-up with Dr Eaton, [facility] heart specialists in our [place] location on 01/12/2021 at 3:15 PM #[phone] This patient was seen in conjunction with Dr. James who agrees with this assessment and plan of care - Patient Problems (1) Chest pain Current Visit: Yes Status: Acute Qualifiers: Chest pain type: unspecified Qualified Code(s): R07.9 - Chest pain, unspecified (2) Heart failure with reduced ejection fraction Current Visit: Yes Status: Acute (3) Dilated cardiomyopathy Current Visit: Yes Status: Chronic (4) Dizziness Current Visit: Yes Status: Acute (5) Pneumonia Current Visit: Yes Status: Acute Qualifiers: Pneumonia type: due to unspecified organism Laterality: right Lung location: lower lobe of lung Qualified Code(s): J18.9 - Pneumonia, unspecified organism (6) HLD (hyperlipidemia) Current Visit: Yes Status: Chronic Qualifiers: Hyperlipidemia type: mixed hyperlipidemia Qualified Code(s): E78.2 - Mixed hyperlipidemia (7) Essential (primary) hypertension Current Visit: Yes Status: Chronic Subjective Date of service: 01/02/21 Principal diagnosis: Chest Pain Interval history: Patient resting comfortably in bed. No shortness of breath or chest pain overnight Telemetry reviewed: Sinus rhythm 77. No events Objective Last Vital Signs Temp 98.7 F 01/02/21 03:44 Pulse 88 01/02/21 07:38 Resp 16 01/02/21 07:38 BP 132/68 01/02/21 03:44 Pulse Ox 100 01/02/21 08:22 - Physical Examination HEENT: Positive: PERRL, Normocephaly, Mucus Membranes Moist Neck: Positive: neck supple, trachea midline Cardiac: Positive: Reg Rate and Rhythm, S1/S2 Lungs: Positive: clear to auscultation Neuro: Positive: Grossly Intact Abdomen: Positive: Unremarkable, Soft Skin: Negative: Rash, Wound Extremities: Present: upper extr. pulses, lower extr. pulses. Absent: edema - Labs and Meds Comprehensive Metabolic Panel 01/02/21 Range/Units 07:20 Sodium 139 (137-145) mmol/L Potassium 4.4 (3.6-5.0) mmol/L Chloride 105.6 (98-107) mmol/L Carbon Dioxide 24 (22-30) mmol/L BUN 34 H (7-17) mg/dL Creatinine 1.0 (0.6-1.2) mg/dL Glucose 97 (65-100) mg/dL Calcium 9.0 (8.4-10.2) mg/dL - Imaging and Cardiology EKG: report reviewed, image reviewed Echo: report reviewed - Telemetry EKG Rhythm: Sinus Rhythm - EKG Sinus rhythms and dysrhythmias: sinus rhythm
--- NOTE | 2021-01-02 09:39 | Discharge Summary ---
Providers - Providers Date of Admission: 01/01/21 04:13 Date of discharge: 01/02/21 Attending physician: ROSA CLEANING MD 01/01/21 Consult to Cardiac Rehabilitation [CONS] Routine Reason For Exam: Phase I 01/01/21 04:13 Consult to Cardiology [CONS] Routine Consulting Provider: POLLO EATON Reason For Exam: Chest pain 01/01/21 13:48 Physical Therapy Evaluation and Treat [CONS] Routine Comment: Debility & Assistance w/ADLs Reason For Exam: Eval & Treat Primary care physician: [facility] [employer] Hospitalization Reason for admission: Chest pain Condition: Stable Hospital course: History of present illness: 70-year-old female with past medical history of diabetes hypertension asthma hyperlipidemia congestive heart failure asthma and pneumonia was brought to the hospital because of chest pain fatigue and dizziness worsening for approximately 1 week. Chest pain described as a lot of pressure 5 out of 10 left-sided. Patient states that her dizziness is better with rest and worse with movement and exertion. Patient states that her chest pain is better with rest worse with exertion. Patient states her fatigue is better with rest. Patient states she is not been feeling well for a while. Patient denies fever or chills. Patient denies nausea vomiting. Patient denies diaphoresis. Patient complains of shortness of breath at times. In the emergency room initial cardiac enzyme is negative troponin is 0.010, proBNP is 658.3. Hospital course Patient was admitted to the floor and was seen and evaluated by cardiology. She had recent admission and ischemic work-up was done and negative at that time. Cardiology recommended to discharge the patient with Imdur. Also recommend to change Lasix to Bumex. Further cardiac work-up was needed and cleared the patient for discharge with follow-up with Dr. Eaton in the office. Patient is still complaining some chest discomfort. Patient was hemodynamically stable at time of discharge. Management plan was discussed in detail and was agreed to the plan of care. Disposition: DC-01 TO HOME OR SELFCARE Final Discharge Diagnosis (Prints w/discharge instructions): Chest pain, due to cardiomyopathy. Dilated cardiomyopathy. Chronic systolic CHF Time spent for discharge: 25 minutes - Discharge Diagnoses (1) Chest pain Status: Acute Qualifiers: Chest pain type: unspecified Qualified Code(s): R07.9 - Chest pain, unspecified (2) Heart failure with reduced ejection fraction Status: Acute (3) Dilated cardiomyopathy Status: Chronic (4) Essential (primary) hypertension Status: Chronic Core Measure Documentation - Palliative Care Palliative Care/ Comfort Measures: Not Applicable - Core Measures Any of the following diagnoses?: none Exam - Physical Exam Narrative exam: Not in cardiopulmonary distress. The patient appeared well nourished and normally developed. Vital signs as documented. Head exam is unremarkable. No scleral icterus . Neck is without jugular venous distension, thyromegaly, or carotid bruits. Lungs are clear to auscultation. Cardiac exam reveals regular rate and Rhythm. Abdominal exam reveals normal bowel sounds, nontender, no organomegaly. Extremities are nonedematous and both femoral and pedal pulses are normal. COTTON JAMMER: Alert and oriented 3. No focal weakness. - Constitutional Vitals: Temp Pulse Resp BP Pulse Ox 98.7 F 88 16 132/68 100 01/02/21 03:44 01/02/21 07:38 01/02/21 07:38 01/02/21 03:44 01/02/21 08:22 Plan Activity: no restrictions Weight Bearing Status: Full Weight Bearing Diet: low cholesterol, low salt, diabetic Follow up with: PRIMARY CARE, [Primary Care Provider] - 3-5 Days POLLO EATON MD [Staff Physician] - 01/12/21 Prescriptions: Bumetanide [Bumex 1 mg tab] 1 mg PO QDAY #30 tablet ISOSORBIDE MONOnitrate [Imdur ER] 30 mg PO QDAY #30 tablet
[2021-01-02] MEDS: BUMETANIDE 1 MG TAB PO SCH (10:00)
[2021-01-02] MEDS: LOSARTAN 50 MG TAB PO SCH (10:00)
[2021-01-02] MEDS: ASPIRIN 81 MG TAB CHEW PO SCH (10:00)
[2021-01-02] MEDS: POTASSIUM CHLORIDE ER 20 MEQ TAB PO SCH (10:00)
[2021-01-02] MEDS: SPIRONOLACTONE 25 MG TAB PO SCH (10:00)
[2021-01-02] MEDS: PANTOPRAZOLE 40 MG TAB PO SCH (10:00)
[2021-01-02 11:30] VITALS: BP 133/67
--- NOTE | 2021-01-02 19:34 | Electrocardiograph Report ---
[facility] Test Date: 2021-01-01 Test Time: 03:02:49 Pat Name: JEREMIE PINEDO Department: Room: A3 1 Gender: F Commissioned Fire Officer: ARACELIS : 1950 Requested By: VIRI DOHERTY Order Number: [id number] Reading MD: Ramos James Measurements Intervals [place] Rate: 78 P: 53 MO: 134 QRS: 54 QRSD: 90 T: 83 QT: 400 QTc: 456 Interpretive Statements Sinus rhythm Compared to ECG 11/13/2020 00:42:08 Atrial premature complex(es) no longer present Right-axis deviation no longer present Electronically Signed On 01-02-2021 19:33:48 EDT by Ramos James
--- NOTE | 2021-01-02 19:38 | Electrocardiograph Report ---
[facility] Test Date: 2021-01-01 Test Time: 10:06:51 Pat Name: JEREMIE PINEDO Department: Room: A3 1 Gender: F Finish Saw Operator: MELISSA : 1950 Requested By: VIRI DOHERTY Order Number: [id number] Reading MD: Ramos James Measurements Intervals [place] Rate: 75 P: 62 TN: 158 QRS: 40 QRSD: 105 T: 102 QT: 413 QTc: 462 Interpretive Statements Sinus rhythm Nonspecific T abnormalities, lateral leads Compared to ECG 01/01/2021 03:02:49 T-wave abnormality now present Electronically Signed On 01-02-2021 19:38:13 EDT by Ramos James
--- NOTE | 2021-01-02 19:50 | Electrocardiograph Report ---
[facility] Test Date: 2021-01-02 Test Time: 07:00:01 Pat Name: JEREMIE PINEDO Department: Room: A3 1 Gender: F Low Voltage Electrician: SHANELLE : 1950 Requested By: DEBI ALVARADO III Order Number: [id number] Reading MD: Ramos James Measurements Intervals [place] Rate: 74 P: 59 CO: 136 QRS: 51 QRSD: 98 T: 99 QT: 411 QTc: 457 Interpretive Statements Sinus rhythm Nonspecific T abnormalities, lateral leads Compared to ECG 01/01/2021 10:06:51 No significant changes Electronically Signed On 01-02-2021 19:50:26 EDT by Ramos James
== END 2021-01-02 16:00 | disposition home or self-care (01) ==
LOC: ED 17:39 → 3A 01-01 04:13
PROVIDERS: ADMIT Hospitalist; ATTEND Internal Medicine
DX: I24.9 Acute ischemic heart disease, unspecified (principal); I11.0 Hypertensive heart disease with heart failure; I50.9 Heart failure, unspecified; J45.909 Unspecified asthma, uncomplicated; I42.0 Dilated cardiomyopathy; R42 Dizziness and giddiness; J18.9 Pneumonia, unspecified organism; E11.9 Type 2 diabetes mellitus without complications; E78.2 Mixed hyperlipidemia; Z79.82 Long term (current) use of aspirin; Z79.84 Long term (current) use of oral hypoglycemic drugs
CPT/HCPCS: 36415; 71046; 80048; 80053; 82962; 83735; 83880; 84443; 84484; 85025; 85027; 93005; 93308; 93321; 93325; 94640; 96372; 99291; A9270; G0378; J1644; 87641; J1815

== ENCOUNTER 2021-01-07 17:44 | Observation (INO) | payer MEDICARE ==
[2021-01-07 18:25] LABS: Basophils % (Auto) 0.7 % (0.0-1.8); Eosinophils # (Auto) 0.2 K/mm3 (0.0-0.4); Eosinophils % (Auto) 5.9 % (0.0-4.3); Hematocrit 38.7 % (30.3-42.9); Hemoglobin 12.5 gm/dl (10.1-14.3); Lymphocytes # (Auto) 1.3 K/mm3 (1.2-5.4); Lymphocytes % (Auto) 40.1 % (13.4-35.0); Mean Corpuscular HGB Conc 32 % (30-34); Mean Corpuscular Volume 92 fl (79-97); Monocytes # (Auto) 0.4 K/mm3 (0.0-0.8); Monocytes % (Auto) 11.1 % (0.0-7.3); Platelet Count 132 K/mm3 (140-440); Red Blood Count 4.19 M/mm3 (3.65-5.03); Red Cell Distribution Width 15.3 % (13.2-15.2)
[2021-01-07 18:48] LABS: Calcium 9.1 mg/dL (8.4-10.2)
--- NOTE | 2021-01-07 18:53 | XRay Report ---
CHEST 2 VIEWS INDICATION: chest pain. COMPARISON: 12/31/2020 FINDINGS: Support devices: None. Heart: Within normal limits. Lungs: No acute air space or interstitial disease. Pleura: No significant pleural effusion. No pneumothorax. Additional findings: None. IMPRESSION: 1. No acute findings. Signer Name: Tristin Tavares MD Signed: 01/07/2021 6:48 PM Workstation Name: [id number]
[2021-01-07] MEDS ORDERED: METOCLOPRAMIDE 10 MG TAB PO ONE (22:39)
[2021-01-07] MEDS ORDERED: ACETAMINOPHEN 325 MG TAB PO ONE (22:39)
--- NOTE | 2021-01-07 22:41 | Emergency Department Report ---
ED General Adult HPI - General Chief complaint: Medical Clearance Stated complaint: I am congested. I have pain in my upper belly. I have a headache PUI?: No Time Seen by Provider: 01/07/21 22:24 Source: patient, RN notes reviewed, old records reviewed Mode of arrival: Ambulatory Limitations: No Limitations - History of Present Illness Initial comments: The patient is a 70-year-old female. This patient was recently admitted to this hospital. She was ruled out for acute SD, had a nuclear stress test which was negative for acute findings, had an echocardiogram which demonstrated an EF of 43%, recently started on Imdur 30 mg daily, and is currently on aspirin, atorvastatin, Coreg, losartan. She has follow-up with her senior gis analyst, Dr. Eaton on January 12, 2021, at 3: 15 p.m.; [id number] Her past medical history includes hypertension, high cholesterol, and congestive heart failure. She reports that she is also legally blind. The patient presents to the ER today with a complaint of epigastric and left upper quadrant abdominal pressure, congestion, and acute on chronic shortness of breath, intermittent chest tightness, left shoulder pain, and headache. She also reports that she felt her blood pressure was low yesterday, and this morning. She took her blood pressure yesterday, and thought it was 75 mm syst olic. This morning, her blood pressure was 95 systolic. Apparently her senior gis analyst told her to come to the emergency room. The patient states that she has had no central or left/right sided chest pain, but rather epigastric and left upper quadrant pressure. There is no vomiting or diaphoresis. There is no leg pain or leg swelling. The pressure does not radiate to the back, arms or neck. She has not taken any medication for this. The headache is frontal and midline. The headache is not sudden or thunderclap in nature. The headache is not the worst headache of her life. There is no n samia pain, no jaw claudication, no temporal pain, and no change in vision that she is aware of. She reports nasal congestion. She reports no change in her exercise tolerance. She does not feel like her legs are more swollen than usual. She reports that she feels like she is at her baseline weight. No sick contacts that she is aware of, no loss of taste or smell. -: Gradual, days(s) Location: head, abdomen Quality: aching Consistency: intermittent Improves with: none Worsens with: none - Related Data Home Medications Medication Instructions Recorded Confirmed Last Taken ALBUTEROL NEB's [Proventil 0.083% 2 puff IH BID 11/13/20 11/13/20 Unknown NEBS] Fluticasone/Umeclidin/Vilanter 1 each IH DAILY 11/13/20 11/13/20 Unknown [Jimenapool Ellipta 100-62.5-25] Pantoprazole [Protonix TAB] 40 mg PO QDAY 11/13/20 11/13/20 Unknown Previous Rx's Medication Instructions Recorded Last Taken Type Aspirin [Aspirin BABY CHEW TAB] 81 mg PO QDAY #30 tab.chew 11/14/20 Unknown Rx AtorvaSTATin [Lipitor] 40 mg PO QHS #30 tablet 11/14/20 Unknown Rx Losartan [Cozaar] 50 mg PO QDAY #30 tablet 11/14/20 Unknown Rx Potassium Chloride [K-Dur] 20 meq PO QDAY #7 tablet 11/14/20 Unknown Rx Spironolactone [Aldactone] 25 mg PO QDAY #30 tablet 11/14/20 Unknown Rx carvediloL [Coreg] 6.25 mg PO BID #60 tablet 11/14/20 Unknown Rx metFORMIN [Glucophage] 500 mg PO BIDDIAB #60 tablet 11/14/20 Unknown Rx Bumetanide [Bumex 1 mg tab] 1 mg PO QDAY #30 tablet 01/02/21 Unknown Rx ISOSORBIDE MONOnitrate [Imdur ER] 30 mg PO QDAY #30 tablet 01/02/21 Unknown Rx Allergies Allergy/AdvReac Type Severity Reaction Status Date / Time No Known Allergies Allergy Unverified 09/13/18 16:10 ED Review of Systems ROS: Stated complaint: CONGESTIVE HEART FAILURE/RESPIRATORY Other details as noted in HPI Constitutional: denies: fever Eyes: denies: eye discharge, vision change ENT: denies: epistaxis Respiratory: shortness of breath (Chronic). denies: cough Cardiovascular: denies: syncope Gastrointestinal: abdominal pain Genitourinary: denies: dysuria Musculoskeletal: myalgia Neurological: headache, weakness ED Past Medical Hx - Past Medical History Hx Hypertension: Yes Hx Diabetes: Yes Hx Asthma: Yes Additional medical history: Legally Blind, bladder CA - Surgical History Additional Surgical History: Bladder surgery for bladder cancer removal and fibroid removal - Social History Smoking Status: Never Smoker - Medications Home Medications: Home Medications Medication Instructions Recorded Confirmed Last Taken Type ALBUTEROL NEB's [Proventil 0.083% 2 puff IH BID 11/13/20 11/13/20 Unknown Hist ory NEBS] Fluticasone/Umeclidin/Vilanter 1 each IH DAILY 11/13/20 11/13/20 Unknown History [Trelegy Ellipta 100-62.5-25] Pantoprazole [Protonix TAB] 40 mg PO QDAY 11/13/20 11/13/20 Unknown History Aspirin [Aspirin BABY CHEW TAB] 81 mg PO QDAY #30 tab.chew 11/14/20 Unknown Rx AtorvaSTATin [Lipitor] 40 mg PO QHS #30 tablet 11/14/20 Unknown Rx Losartan [Cozaar] 50 mg PO QDAY #30 tablet 11/14/20 Unknown Rx Potassium Chloride [K-Dur] 20 meq PO QDAY #7 tablet 11/14/20 Unknown Rx Spironolactone [Aldactone] 25 mg PO QDAY #30 tablet 11/14/20 Unknown Rx carvediloL [Coreg] 6.25 mg PO BID #60 tablet 11/14/20 Unknown Rx metFORMIN [Glucophage] 500 mg PO BIDDIAB #60 tablet 11/14/20 Unknown Rx Bumetanide [Bumex 1 mg tab] 1 mg PO QDAY #30 tablet 01/02/21 Unknown Rx ISOSORBIDE MONOnitrate [Imdur ER] 30 mg PO QDAY #30 tablet 01/02/21 Unknown Rx ED Physical Exam - General Limitations: No Limitations General appearance: alert, in no apparent distress - Head Head exam: Present: atraumatic, normocephalic, other (There is no temporal tenderness) - Eye Eye exam: Present: normal appearance, EOMI. Absent: nystagmus - ENT ENT exam: Present: normal exam, normal orophraynx, mucous membranes moist, normal external ear exam - Neck Neck exam: Present: normal inspection, full ROM. Absent: tenderness, meningismus - Respiratory Respiratory exam: Present: normal lung sounds bilaterally. Absent: respiratory distress, wheezes, rales, rhonchi, stridor, decreased breath sounds - Cardiovascular Cardiovascular Exam: Present: regular rate, normal rhythm, normal heart sounds. Absent: bradycardia, tachycardia, irregular rhythm, systolic murmur, diastolic murmur, rubs, gallop - GI/Abdominal GI/Abdominal exam: Present: soft, normal bowel sounds. Absent: distended, tenderness, guarding, rebound, rigid, pulsatile mass - Extremities Exam Extremities exam: Present: normal inspection, full ROM, pedal edema (1+ edema in the bilateral lower extremity), other (2+ pulses noted in the bilateral upper and lower extremities. There is no palpable cord. negative Homans sign. Muscular compartments are soft. The pelvis is stable.). Absent: calf tenderness - Back Exam Back exam: Present: normal inspection, full ROM. Absent: tenderness, CVA tenderness (R), CVA tenderness (L), paraspinal tenderness, vertebral tenderness - Neurological Exam Neurological exam: Present: alert, oriented X3, normal gait, other (No facial droop. Tongue midline. Extraocular movements intact bilaterally. Facial sensation intact to light touch in V1, V2, V3 distribution bilaterally. 5 and a 5 strength in 4 extremities. Sensation intact to light touch in 4 extremities.). Absent: motor sensory deficit - Psychiatric Psychiatric exam: Present: normal affect, normal mood - Skin Skin exam: Present: warm, dry, intact, normal color. Absent: rash ED Course Vital Signs 01/07/21 01/07/21 01/07/21 18:06 22:31 23:00 Temperature 98.8 F Pulse Rate 84 86 80 Respiratory 18 12 14 Rate Blood Pressure 119/74 110/63 O2 Sat by Pulse 100 100 97 Oximetry 01/07/21 01/08/21 23:02 00:00 Temperature Pulse Rate 80 86 Respiratory 14 17 Rate Blood Pressure 110/63 119/71 O2 Sat by Pulse 98 100 Oximetry - Reevaluation(s) Reevaluation #1: 01/07/21 23:26 Differential diagnosis, including but not limited to: Orthostasis, vagal event, overdiuresis, medication side effect, symptomatic hyponatremia, GERD, gastritis, hiatal hernia, pneumonia, chronic congestive heart failure, migraine headache, tension headache, cluster headache, pulmonary embolism Assessment and plan: 70-year-old female, recently admitted to this hospital for ischemic cardiac work-up and evaluation, recently started on Bumex and Imdur, found to have new onset hyponatremia, which is most likely hypovolemic hyponatremia, chest pressure/upper abdominal pressure, who is not currently tachycardic, tachypneic or hypoxic, with a GCS of 15, who is most likely experiencing side effects of the aforementioned medications. We have treated her headache with acetaminophen and Reglan, and her headache is resolved at this time. Given new onset hyponatremia, history of hypotension, and the fact that she was sent here by her primary care doctor/senior gis analyst, we have recommended admission for observation, correction of electrolyte dera ngement, and medication adjustment. Have discussed this plan of care with the patient, who verbalized understanding, and is amenable to this plan of care. We will hold diuretics and IV fluids at this time, order hyponatremia labs, hospital physician, Dr. Alie Whalen to admit to [facility] Reevaluation #2: 01/07/21 23:30 Abdomen is soft and benign. Do not see indication for advanced imaging at this time. Does not have crackles or rales, lungs are clear, chest x-ray clear, sat urating 100% on room air. Heart failure does not appear to be decompensated at this time. GCS of 15, with a nonfocal motor/neurologic examination. Do not see indication for advanced neuroimaging at this time. 01/08/21 06:09 CT scan of the chest negative for pulmonary embolism. Small pericardial effusion suggested. ED Medical Decision Making - Lab Data Result diagrams: 01/07/21 18:12 01/07/21 18:12 Vital Signs 01/07/21 01/07/21 01/07/21 18:06 22:31 23:00 Temperature 98.8 F Pulse Rate 84 86 80 Respiratory 18 12 14 Rate Blood Pressure 119/74 110/63 O2 Sat by Pulse 100 100 97 Oximetry Lab Results 01/07/21 01/07/21 01/07/21 Range/Units 18:12 18:12 21:12 WBC 3.2 L (4.5-11.0) K/mm3 RBC 4.19 (3.65-5.03) M/mm3 Hgb 12.5 (10.1-14.3) gm/dl Hct 38.7 (30.3-42.9) % MCV 92 (79-97) fl MCH 30 (28-32) pg MCHC 32 (30-34) % RDW 15.3 H (13.2-15.2) % Plt Count 132 L (140-440) K/mm3 Lymph % (Auto) 40.1 H (13.4-35.0) % [place] % (Auto) 11.1 H (0.0-7.3) % Eos % (Auto) 5.9 H (0.0-4.3) % Baso % (Auto) 0.7 (0.0-1.8) % Lymph # (Auto) 1.3 (1.2-5.4) K/mm3 [place] # (Auto) 0.4 (0.0-0.8) K/mm3 Eos # (Auto) 0.2 (0.0-0.4) K/mm3 Baso # (Auto) 0.0 (0.0-0.1) K/mm3 Seg Neutrophils % 42.2 (40.0-70.0) % Seg Neutrophils # 1.3 L (1.8-7.7) K/mm3 Sodium 128 L (137-145) mmol/L Potassium 4.6 (3.6-5.0) mmol/L Chloride 95.9 L (98-107) mmol/L Carbon Dioxide 24 (22-30) mmol/L Anion Gap 13 mmol/L BUN 36 H (7-17) mg/dL Creatinine 1.2 (0.6-1.2) mg/dL Estimated GFR 44 ml/min BUN/Creatinine Ratio 30 % Glucose 196 H (65-100) mg/dL Calcium 9.1 (8.4-10.2) mg/dL Total Bilirubin 0.80 (0.1-1.2) mg/dL AST 17 (5-40) units/L ALT 13 (7-56) units/L Alkaline Phosphatase 95 (35-129) units/L Troponin T 0.013 < 0.010 (0.00-0.029) ng/mL Total Protein 7.5 (6.3-8.2) g/dL Albumin 4.0 (3.9-5) g/dL Albumin/Globulin Ratio 1.1 % - EKG Data -: EKG Interpreted by [facility] EKG shows normal: sinus rhythm Rate: normal - EKG Data 01/07/21 23:17 EKG #1 performed at 18: 00 Sinus rhythm, 78 bpm. Normal axis, QTC 454 ms, poor R wave progression, and left ventricular hypertrophy. This is an abnormal EKG. This is not a STEMI. This appears to be unchanged when compared to prior EKG from 01/02/2021 EKG #2, performed at 22: 44 negative for acute findings. - Radiology Data Radiology results: pending, report reviewed, image reviewed CHEST 2 VIEWS INDICATION: chest pain. COMPARISON: 12/31/2020 FINDINGS: Support devices: None. Heart: Within normal limits. Lungs: No acute air space or interstitial disease. Pleura: No significant pleural effusion. No pneumothorax. Additional findings: None. IMPRESSION: 1. No acute findings. Signer Name: Tristin Tavares MD Signed: 01/07/2021 5:48 PM Workstation Name: [id number] Critical care attestation.: If time is entered above; I have spent that time in minutes in the direct care of this critically ill patient, excluding procedure time. ED Disposition Clinical Impression: Hyponatremia, Headache, History of hypotension, Dilated cardiomyopathy, SOB (shortness of breath), Abdominal pain Disposition: OP ADMIT IP TO THIS HOSP Is pt being admited?: Yes Does the pt Need Aspirin: Yes Condition: Good
[2021-01-07] MEDS ORDERED: ASPIRIN 81 MG TAB CHEW PO ONE (23:29)
--- NOTE | 2021-01-07 23:36 | History and Physical Report ---
History of Present Illness Date of examination: 01/07/21 Date of admission: 01/07/2021 Chief complaint: Chest pressure Headache Dizziness History of present illness: 70-year-old -[place] female with known history of hypertension, diabetes mellitus, asthma presenting to the emergency room today with multiple complaints including chest pressure, headache, dizziness, intermittent abdominal discomfort and shortness of breath. Patient reports that her blood pressure was low yesterday with systolic in the 70s and was therefore encouraged to report to the emergency room by her label maker. Patient was just recently discharged from this hospital 3 weeks ago when she was evaluated for chest pain and had a nuclear stress test which was negative. She also had an echocardiogram with ejection fraction of about 45 3%. She was placed on Imdur, aspirin, atorvastatin, Coreg , Bumex, losartan. Patient denies any nausea or vomiting, no fever or chills, no hematuria or dysuria. She denies any lower extremity swelling. Work-up in the emergency room today reveals sodium 128 from a previous sodium level of 139. All other work-up were essentially unremarkable. Patient is being admitted for hyponatremia, dizziness, hypotension and chest pain. Past History Past Medical History: diabetes, hypertension, hyperlipidemia, other (Bladder Ca,Asthma,) Past Surgical History: Other (Bladder surger for Bladder ca,, Fibroid rempoval) Social history: no significant social history Family history: no significant family history Medications and Allergies Allergies Allergy/AdvReac Type Severity Reaction Status Date / Time No Known Allergies Allergy Unverified 09/13/18 16:10 Home Medications Medication Instructions Recorded Confirmed Last Taken Type ALBUTEROL NEB's [Proventil 0.083% 2 puff IH BID 11/13/20 11/13/20 Unknown History NEBS] Fluticasone/Umeclidin/Vilanter 1 each IH DAILY 11/13/20 11/13/20 Unknown History [Trelegy Ellipta 100-62.5-25] Pantoprazole [Protonix TAB] 40 mg PO QDAY 11/13/20 11/13/20 Unknown History Aspirin [Aspirin BABY CHEW TAB] 81 mg PO QDAY #30 tab.chew 11/14/20 Unknown Rx AtorvaSTATin [Lipitor] 40 mg PO QHS #30 tablet 11/14/20 Unknown Rx Losartan [Cozaar] 50 mg PO QDAY #30 tablet 11/14/20 Unknown Rx Potassium Chloride [K-Dur] 20 meq PO QDAY #7 tablet 11/14/20 Unknown Rx Spironolactone [Aldactone] 25 mg PO QDAY #30 tablet 11/14/20 Unknown Rx carvediloL [Coreg] 6.25 mg PO BID #60 tablet 11/14/20 Unknown Rx metFORMIN [Glucophage] 500 mg PO BIDDIAB #60 tablet 11/14/20 Unknown Rx Bumetanide [Bumex 1 mg tab] 1 mg PO QDAY #30 tablet 01/02/21 Unknown Rx ISOSORBIDE MONOnitrate [Imdur ER] 30 mg PO QDAY #30 tablet 01/02/21 Unknown Rx Review of Systems Constitutional: no fever, no chills Ears, nose, mouth and throat: no nasal congestion, no sore throat Cardiovascular: chest pain, no palpitations Respiratory: shortness of breath, no cough Gastrointestinal: no abdominal pain, no nausea, no vomiting, no diarrhea Genitourinary Female: no dysuria, no hematuria Musculoskeletal: no neck pain, no low back pain Integumentary: no rash, no pruritis Neurological: no headaches, no confusion Psychiatric: no anxiety, no depression Endocrine: no polydipsia, no polyuria, no nocturia Exam - Constitutional Vitals: Temp Pulse Resp BP Pulse Ox 98.8 F 80 14 110/63 97 01/07/21 18:06 01/07/21 23:00 01/07/21 23:00 01/07/21 23:00 01/07/21 23:00 General appearance: Present: no acute distress, well-nourished - EENT Eyes: Present: PERRL, EOM intact. Absent: scleral icterus ENT: hearing intact, clear oral mucosa, dentition normal - Neck Neck: Present: supple, normal ROM - Respiratory Respiratory effort: normal Respiratory: bilateral: CTA - Cardiovascular Rhythm: regular Heart Sounds: Present: S1 & S2. Absent: gallop, systolic murmur, diastolic murmur, rub, click - Extremities Extremities: no ischemia, pulses intact, pulses symmetrical, No edema, Full ROM Peripheral Pulses: within normal limits - Abdominal General gastrointestinal: Present: soft, non-tender, non-distended, normal bowel sounds. Absent: mass - Integumentary Integumentary: Present: clear, warm, dry, normal turgor. Absent: rash - Musculoskeletal Musculoskeletal: strength equal bilaterally - Psychiatric Psychiatric: appropriate mood/affect - Neurologic Neurologic: CNII-XII intact, no focal deficits, moves all extremities HEART Score - HEART Score Troponin: Troponin T < 0.010 ng/mL (0.00-0.029) 01/07/21 21:12 Results - Labs CBC & Chem 7: 01/07/21 18:12 01/07/21 18:12 Labs: Abnormal lab results 01/07/21 01/07/21 Range/Units 18:12 18:12 WBC 3.2 L (4.5-11.0) K/mm3 RDW 15.3 H (13.2-15.2) % Plt Count 132 L (140-440) K/mm3 Lymph % (Auto) 40.1 H (13.4-35.0) % [place] % (Auto) 11.1 H (0.0-7.3) % Eos % (Auto) 5.9 H (0.0-4.3) % Seg Neutrophils # 1.3 L (1.8-7.7) K/mm3 Sodium 128 L (137-145) mmol/L Chloride 95.9 L (98-107) mmol/L BUN 36 H (7-17) mg/dL Glucose 196 H (65-100) mg/dL Assessment and Plan - Patient Problems (1) Hyponatremia Current Visit: Yes Status: Acute Plan to address problem: Possibly secondary to diuretics. Patient currently on Bumex. We will request cardiology consult for evaluation and recommendations. (2) CHF (congestive heart failure) Current Visit: No Status: Acute Qualifiers: Heart failure type: unspecified Heart failure chronicity: acute Qualified Code(s): I50.9 - Heart failure, unspecified Plan to address problem: Recent echo shows ejection fraction of 43%. Patient currently on diuretics. Will monitor inputs and outputs and also monitor daily weights. We will await cardiology evaluation. (3) Chest pain Current Visit: No Status: Acute Qualifiers: Chest pain type: unspecified Qualified Code(s): R07.9 - Chest pain, unspecified Plan to address problem: We will trend cardiac enzymes. We will continue on daily aspirin, Imdur as recommended. Recent stress test was negative. Await further evaluation by cardiology. (4) DM2 (diabetes mellitus, type 2) Current Visit: No Status: Chronic Plan to address problem: We will monitor Accu-Cheks closely. (5) DVT prophylaxis Current Visit: No Status: Acute Plan to address problem: Patient placed on subcutaneous heparin. (6) Full code status Current Visit: Yes Status: Acute Plan to address problem: Patient is full code.
[2021-01-07] MEDS ORDERED: DEXTROSE 50% IN WATER (25GM) 50 ML SYRINGE IV PRN (23:49)
[2021-01-07] MEDS ORDERED: MORPHINE 2 MG/1 ML INJ IV PRN (23:49)
[2021-01-07] MEDS ORDERED: MAGNESIUM HYDROXIDE (MOM) ORAL LIQD UDC PO PRN (23:49)
[2021-01-07] MEDS ORDERED: ONDANSETRON 4 MG/2 ML INJ IV PRN (23:49)
[2021-01-08] MEDS ORDERED: NITROGLYCERIN 0.4 MG TAB SUBL SL PRN (00:09)
[2021-01-08 00:36] LABS: Creatinine,Urine 86.6 mg/dL (0.1-20.0)
[2021-01-08 00:42] LABS: Bacteria,Urine 1+ /HPF (Negative)
[2021-01-08 01:18] LABS: Color,Urine Yellow (Yellow)
[2021-01-08 01:20] LABS: Urobilinogen,Urine < 2.0 mg/dL (<2.0)
[2021-01-08 01:21] LABS: Ictotest,Urine Negative (Negative)
--- NOTE | 2021-01-08 02:00 | Cat Scan Report ---
CTA CHEST WITH CONTRAST INDICATION / CLINICAL INFORMATION: Patient complains of chest pain and dyspnea, elevated D-dimer. TECHNIQUE: Axial CT images were obtained through the chest after injection of IV contrast. 3 plane HI P and/or 3D reconstructions were produced. All CT scans at this location are performed using CT dose reduction for ALARA by means of automated exposure control. COMPARISON: None available. FINDINGS: Pulmonary arteries are patent without filling defect or evidence for PTE. Heart and aorta appear norm al. Trace pericardial effusion is seen. No focal consolidation pleural effusion. Emphysematous change s seen within the lungs. No dominant nodular mass is identified IMPRESSION: 1. No CT evidence for pulmonary embolism. 2. Small pericardial effusion Signer Name: Marc Carrillo MD Signed: 01/08/2021 1:55 AM Workstation Name: [id number]
[2021-01-08] MEDS: HEPARIN 5,000 UNIT/1 ML VIAL SUB-Q SCH ×3 (05:32→22:04)
--- NOTE | 2021-01-08 08:36 | Progress Note ---
Assessment and Plan Assessment and plan: Hyponatremia. Compensated chronic systolic heart failure. Chest pain. Diabetes mellitus type 2. 01/08/2021. Patient with recent stress test that was found to be negative. Await cardiology evaluation for further recommendations. Chest x-ray showed no evidence of heart failure. Continue Accu-Cheks and sliding scale insulin. CT scan of the abdomen pelvis for abdominal pain. History Interval history: No new issues overnight Hospitalist Physical - Constitutional Vitals: Temp Pulse Resp BP Pulse Ox 97.7 F 82 20 116/66 98 01/08/21 08:09 01/08/21 08:09 01/08/21 08:09 01/08/21 08:09 01/08/21 08:09 General appearance: Present: no acute distress, well-nourished - EENT Eyes: Present: PERRL, EOM intact ENT: hearing intact, clear oral mucosa, dentition normal - Neck Neck: Present: supple, normal ROM - Respiratory Respiratory effort: normal Respiratory: bilateral: CTA - Cardiovascular Rhythm: regular Heart Sounds: Present: S1 & S2. Absent: gallop, rub - Extremities Extremities: no ischemia, No edema, Full ROM - Abdominal General gastrointestinal: soft, non-tender, non-distended, normal bowel sounds - Integumentary Integumentary: Present: clear, warm, dry - Neurologic Neurologic: CNII-XII intact, moves all extremities HEART Score - HEART Score Troponin: Troponin T < 0.010 ng/mL (0.00-0.029) 01/07/21 22:50 Results - Labs CBC & Chem 7: 01/07/21 18:12 01/07/21 18:12 Labs: Laboratory Last Values WBC 3.2 K/mm3 (4.5-11.0) L 01/07/21 18:12 RBC 4.19 M/mm3 (3.65-5.03) 01/07/21 18:12 Hgb 12.5 gm/dl (10.1-14.3) 01/07/21 18:12 Hct 38.7 % (30.3-42.9) 01/07/21 18:12 MCV 92 fl (79-97) 01/07/21 18:12 MCH 30 pg (28-32) 01/07/21 18:12 MCHC 32 % (30-34) 01/07/21 18:12 RDW 15.3 % (13.2-15.2) H 01/07/21 18:12 Plt Count 132 K/mm3 (140-440) L 01/07/21 18:12 Lymph % (Auto) 40.1 % (13.4-35.0) H 01/07/21 18:12 [place] % (Auto) 11.1 % (0.0-7.3) H 01/07/21 18:12 Eos % (Auto) 5.9 % (0.0-4.3) H 01/07/21 18:12 Baso % (Auto) 0.7 % (0.0-1.8) 01/07/21 18:12 Lymph # (Auto) 1.3 K/mm3 (1.2-5.4) 01/07/21 18:12 [place] # (Auto) 0.4 K/mm3 (0.0-0.8) 01/07/21 18:12 Eos # (Auto) 0.2 K/mm3 (0.0-0.4) 01/07/21 18:12 Baso # (Auto) 0.0 K/mm3 (0.0-0.1) 01/07/21 18:12 Seg Neutrophils % 42.2 % (40.0-70.0) 01/07/21 18:12 Seg Neutrophils # 1.3 K/mm3 (1.8-7.7) L 01/07/21 18:12 D-Dimer 266.14 ng/mlDDU (0-234) H 01/07/21 22:50 Sodium 128 mmol/L (137-145) L 01/07/21 18:12 Potassium 4.6 mmol/L (3.6-5.0) 01/07/21 18:12 Chloride 95.9 mmol/L (98-107) L 01/07/21 18:12 Carbon Dioxide 24 mmol/L (22-30) 01/07/21 18:12 Anion Gap 13 mmol/L 01/07/21 18:12 BUN 36 mg/dL (7-17) H 01/07/21 18:12 Creatinine 1.2 mg/dL (0.6-1.2) 01/07/21 18:12 Estimated GFR 44 ml/min 01/07/21 18:12 BUN/Creatinine Ratio 30 % 01/07/21 18:12 Glucose 196 mg/dL (65-100) H 01/07/21 18:12 POC Glucose 255 mg/dL (70-105) H 01/08/21 07:52 Uric Acid 5.3 mg/dL (3.5-7.6) 01/08/21 Unknown Calcium 9.1 mg/dL (8.4-10.2) 01/07/21 18:12 Magnesium 2.60 mg/dL (1.7-2.3) H 01/07/21 22:50 Total Bilirubin 0.80 mg/dL (0.1-1.2) 01/07/21 18:12 AST 17 units/L (5-40) 01/07/21 18:12 ALT 13 units/L (7-56) 01/07/21 18:12 Alkaline Phosphatase 95 units/L (35-129) 01/07/21 18:12 Total Creatine Kinase 51 units/L (30-135) 01/07/21 22:50 Troponin T < 0.010 ng/mL (0.00-0.029) 01/07/21 22:50 Total Protein 7.5 g/dL (6.3-8.2) 01/07/21 18:12 Albumin 4.0 g/dL (3.9-5) 01/07/21 18:12 Albumin/Globulin Ratio 1.1 % 01/07/21 18:12 TSH 3.460 mlU/mL (0.270-4.200) 01/08/21 Unknown Urine Color Yellow (Yellow) 01/08/21 00:22 Urine Turbidity Hazy (Clear) 01/08/21 00:22 Urine pH 5.0 (5.0-7.0) 01/08/21 00:22 Urine Protein 30 mg/dl mg/dL (Negative) 01/08/21 00:22 Urine Glucose (UA) Trace mg/dL (Negative) 01/08/21 00:22 Urine Ketones Negative mg/dL (Negative) 01/08/21 00:22 Urine Nitrite Negative (Negative) 01/08/21 00:22 Ur Reducing Substances Not Reportable 01/08/21 00:22 Urine Ictotest Negative (Negative) 01/08/21 00:22 Urine Urobilinogen < 2.0 mg/dL (<2.0) 01/08/21 00:22 Ur Leukocyte Esterase Negative (Negative) 01/08/21 00:22 Urine WBC (Auto) 1.0 /HPF (0.0-6.0) 01/08/21 00:22 Urine RBC (Auto) 2.0 /HPF (0.0-6.0) 01/08/21 00:22 Urine Bacteria (Auto) 1+ /HPF (Negative) 01/08/21 00:22 Urine Osmolality 649 Mosm/kg 01/08/21 00:22 Urine Creatinine 86.6 mg/dL (0.1-20.0) H 01/08/21 00:22 Urine Sodium 10 mmol/L 01/08/21 00:22 Active Medications - Current Medications Current Medications: Generic Name Dose Route Start Last Admin Trade Name Freq PRN Reason Stop Dose Admin Aspirin 325 mg 01/09/21 10:00 Aspirin Ec 325 Mg Tab PO QDAY AUSTEN Dextrose 50 ml 01/07/21 23:49 Dextrose 50% In Water (25gm) 50 Ml Syringe IV Q30MIN PRN Hypoglycemia Protocol Heparin Sodium (Porcine) 5,000 unit 01/08/21 06:00 01/08/21 05:32 Heparin 5,000 Unit/1 Ml Vial SUB-Q 5,000 unit Q8HR AUSTEN Administration Insulin Human Lispro 0 unit 01/08/21 07:30 Insulin Lispro 100 Unit/Ml SUB-Q ACHS AUSTEN Protocol Magnesium Hydroxide 30 ml 01/07/21 23:49 Magnesium Hydroxide (Mom) Oral Liqd Udc PO Q4H PRN Constipation Morphine Sulfate 2 mg 01/07/21 23:49 Morphine 2 Mg/1 Ml Inj IV Q4H PRN Pain, Moderate (4-6) Nitroglycerin 0.4 mg 01/08/21 00:09 Nitroglycerin 0.4 Mg Tab Subl SL Q5M PRN Chest Pain Ondansetron HCl 4 mg 01/07/21 23:49 Ondansetron 4 Mg/2 Ml Inj IV Q8H PRN Nausea And Vomiting Sodium Chloride 10 ml 01/08/21 10:00 Sodium Chloride 0.9% 10 Ml Flush Syringe IV BID AUSTEN Sodium Chloride 10 ml 01/07/21 23:49 Sodium Chloride 0.9% 10 Ml Flush Syringe IV PRN PRN LINE FLUSH Tramadol HCl 50 mg 01/08/21 00:09 Tramadol 50 Mg Tab PO Q6H PRN Pain, Moderate (4-6)
[2021-01-08 09:09] LABS: Basophils % (Auto) 0.4 % (0.0-1.8); Eosinophils # (Auto) 0.1 K/mm3 (0.0-0.4); Eosinophils % (Auto) 5.3 % (0.0-4.3); Hematocrit 33.9 % (30.3-42.9); Hemoglobin 11.2 gm/dl (10.1-14.3); Lymphocytes # (Auto) 1.2 K/mm3 (1.2-5.4); Lymphocytes % (Auto) 42.4 % (13.4-35.0); Mean Corpuscular HGB Conc 33 % (30-34); Mean Corpuscular Volume 91 fl (79-97); Monocytes # (Auto) 0.3 K/mm3 (0.0-0.8); Platelet Count 122 K/mm3 (140-440); Red Blood Count 3.73 M/mm3 (3.65-5.03); Red Cell Distribution Width 15.2 % (13.2-15.2)
[2021-01-08] MEDS: INSULIN LISPRO 100 UNIT/ML SUB-Q SCH ×4 (09:30→22:03)
--- NOTE | 2021-01-08 09:46 | Consultation ---
History of Present Illness Consult date: 01/08/21 Requesting physician: EMELY ACEVEDO Consult reason: chest pain History of present illness: Primary Resistor Inspector: Torsten Eaton Pt is a 70-year-old AA female with a hx of CMP (EF 35-40%) and chronic HFrEF who presented with complaints of low BP. Pt states she has been feeling very tired at home over the past couple of weeks. She notes decreased PO intake, stating "I only eat once a day." She initially though she had some congestion in her lungs as well but has not been able to produce anything via coughing. Pt noticed that her BP was low (systolic in the 70-80s) over the weekend, prompting her to call our office. She was advised to hold off on her antihypertensives, after which she noticed an improvement in her SBP to the 110s range. However, her PCP noticed her BP was still low upon evaluation and sent her to [facility]. Pt reports intermittent dizziness when standing. No syncope or LOC. Pt reports that she has been exercising vigorously since being diagnosed with heart failure. She uses a stationary bike for 1-2 hours on a daily basis. Of note, pt is on 1mg Bumex qDay as an outpatient. She states that she drinks less than 1L of fluids daily. Past History Past Medical History: cancer (bladder), diabetes, heart failure, hypertension, hyperlipidemia Past Surgical History: Other (bladder surgery). denies: valve replacement, CABG, PTCA Social history: denies: smoking, alcohol abuse Family history: diabetes Medications and Allergies Allergies Allergy/AdvReac Type Severity Reaction Status Date / Time No Known Allergies Allergy Unverified 09/13/18 16:10 Home Medications Medication Instructions Recorded Confirmed Last Taken Type ALBUTEROL NEB's [Proventil 0.083% 2 puff IH BID 11/13/20 01/08/21 01/05/21 History NEBS] Fluticasone/Umeclidin/Vilanter 1 each IH DAILY 11/13/20 01/08/21 01/05/21 History [Trelegy Ellipta 100-62.5-25] Pantoprazole [Protonix TAB] 40 mg PO QDAY 11/13/20 01/08/21 01/08/21 10:21 History Aspirin [Aspirin BABY CHEW TAB] 81 mg PO QDAY #30 tab.chew 11/14/20 01/08/21 01/05/21 Rx AtorvaSTATin [Lipitor] 40 mg PO QHS #30 tablet 11/14/20 01/08/21 01/05/21 Rx Losartan [Cozaar] 50 mg PO QDAY #30 tablet 11/14/20 01/08/21 01/05/21 Rx Potassium Chloride [K-Dur] 20 meq PO QDAY #7 tablet 11/14/20 01/08/21 01/05/21 Rx Spironolactone [Aldactone] 25 mg PO QDAY #30 tablet 11/14/20 01/08/21 01/05/21 Rx carvediloL [Coreg] 6.25 mg PO BID #60 tablet 11/14/20 01/08/21 01/05/21 Rx metFORMIN [Glucophage] 500 mg PO BIDDIAB #60 tablet 11/14/20 01/08/21 Unknown Rx Bumetanide [Bumex 1 mg tab] 1 mg PO QDAY #30 tablet 01/02/21 01/08/21 01/05/21 Rx ISOSORBIDE MONOnitrate [Imdur ER] 30 mg PO QDAY #30 tablet 01/02/21 01/08/21 01/05/21 Rx Bimatoprost [Lumigan] 1 drop OU HS 01/08/21 01/08/21 01/05/21 History Empagliflozin (Nf) [Jardiance (Nf)] 1 tab PO QAM 01/08/21 01/08/21 01/05/21 History Active Meds: Active Medications Aspirin (Aspirin Ec 325 Mg Tab) 325 mg PO QDAY AUSTEN Dextrose (Dextrose 50% In Water (25gm) 50 Ml Syringe) 50 ml IV Q30MIN PRN; Protocol PRN Reason: Hypoglycemia Heparin Sodium (Porcine) (Heparin 5,000 Unit/1 Ml Vial) 5,000 unit SUB-Q Q8HR AUSTEN Last Admin: 01/08/21 05:32 Dose: 5,000 unit Documented by: Insulin Human Lispro (Insulin Lispro 100 Unit/Ml) 0 unit SUB-Q ACHS AUSTEN; Protocol Last Admin: 01/08/21 09:30 Dose: 4 unit Documented by: Magnesium Hydroxide (Magnesium Hydroxide (Mom) Oral Liqd Udc) 30 ml PO Q4H PRN PRN Reason: Constipation Morphine Sulfate (Morphine 2 Mg/1 Ml Inj) 2 mg IV Q4H PRN PRN Reason: Pain, Moderate (4-6) Nitroglycerin (Nitroglycerin 0.4 Mg Tab Subl) 0.4 mg SL Q5M PRN PRN Reason: Chest Pain Ondansetron HCl (Ondansetron 4 Mg/2 Ml Inj) 4 mg IV Q8H PRN PRN Reason: Nausea And Vomiting Sodium Chloride (Sodium Chloride 0.9% 10 Ml Flush Syringe) 10 ml IV BID AUSTEN Last Admin: 01/08/21 09:31 Dose: 10 ml Documented by: Sodium Chloride (Sodium Chloride 0.9% 10 Ml Flush Syringe) 10 ml IV PRN PRN PRN Reason: LINE FLUSH Tramadol HCl (Tramadol 50 Mg Tab) 50 mg PO Q6H PRN PRN Reason: Pain, Moderate (4-6) Review of Systems Constitutional: fatigue, no fever, no chills Ears, nose, mouth and throat: no nasal congestion, no sore throat Cardiovascular: lightheadedness, no chest pain, no orthopnea, no palpitations, no edema, no syncope, no shortness of breath, no dyspnea on exertion, no paroxysmal nocturnal dyspnea, no claudication Respiratory: cough, congestion, no cough with sputum, no shortness of breath, no dyspnea on exertion Gastrointestinal: abdominal pain, no nausea, no vomiting Genitourinary Female: no pelvic pain, no flank pain, no dysuria Musculoskeletal: no neck stiffness, no neck pain, no myalgias Integumentary: no rash, no wounds Neurological: no head injury, no paralysis, no weakness, no parathesias, no numbness, no tingling, no seizures, no syncope, no vertigo, no headaches Endocrine: polydipsia, no cold intolerance, no heat intolerance, no polyuria Hematologic/Lymphatic: no easy bruising, no easy bleeding Allergic/Immunologic: no anaphylaxis Physical Examination Last Vital Signs Temp 97.7 F 01/08/21 08:09 Pulse 82 01/08/21 10:00 Resp 19 01/08/21 10:00 BP 116/66 01/08/21 08:09 Pulse Ox 98 01/08/21 08:09 General appearance: no acute distress HEENT: Positive: EOMI, Normocephaly, Mucus Membranes Moist Neck: Positive: neck supple, trachea midline. Negative: JVD/HJR Cardiac: Positive: Reg Rate and Rhythm, S1/S2 Lungs: Positive: clear to auscultation Neuro: Positive: Grossly Intact Abdomen: Positive: Soft. Negative: Tender Skin: Negative: Rash Musculoskeletal: No Pain Extremities: Present: lower extr. pulses, warm. Absent: edema Results 01/08/21 08:46 01/08/21 08:46 Cardiac Enzymes 01/07/21 Range/Units 18:12 AST 17 (5-40) units/L CBC 01/07/21 01/08/21 Range/Units 18:12 08:46 WBC 3.2 L 2.8 L (4.5-11.0) K/mm3 RBC 4.19 3.73 (3.65-5.03) M/mm3 Hgb 12.5 11.2 (10.1-14.3) gm/dl Hct 38.7 33.9 (30.3-42.9) % Plt Count 132 L 122 L (140-440) K/mm3 Lymph # (Auto) 1.3 1.2 (1.2-5.4) K/mm3 [place] # (Auto) 0.4 0.3 (0.0-0.8) K/mm3 Eos # (Auto) 0.2 0.1 (0.0-0.4) K/mm3 Baso # (Auto) 0.0 0.0 (0.0-0.1) K/mm3 Comprehensive Metabolic Panel 01/07/21 01/08/21 Range/Units 18:12 08:46 Sodium 128 L 135 L D (137-145) mmol/L Potassium 4.6 4.1 (3.6-5.0) mmol/L Chloride 95.9 L 99.7 (98-107) mmol/L Carbon Dioxide 24 26 (22-30) mmol/L BUN 36 H 43 H (7-17) mg/dL Creatinine 1.2 1.2 (0.6-1.2) mg/dL Glucose 196 H 205 H (65-100) mg/dL Calcium 9.1 9.0 (8.4-10.2) mg/dL AST 17 (5-40) units/L ALT 13 (7-56) units/L Alkaline Phosphatase 95 (35-129) units/L Total Protein 7.5 (6.3-8.2) g/dL Albumin 4.0 (3.9-5) g/dL - Imaging and Cardiology Echo: report reviewed EKG: report reviewed, image reviewed - EKG Interpretation EKG: no acute changes EKG interpretations - Telemetry EKG Rhythm: Sinus Rhythm - EKG Sinus rhythms and dysrhythmias: sinus rhythm Repolarization changes or abnormalities: nonspecific abnormality, ST segment, and/or T wave Assessment and Plan Recommend increasing PO fluid intake. D/w pt. Closely monitor for signs of volume overload. Check orthostatic vital signs. Will resume GDMT when BP permits. Anticipate discharge in AM if VS stable. Pt seen in conjunction with Dr. Alie Wright, who agrees with the assessment and plan of care. - Patient Problems (1) Dizziness Current Visit: Yes Status: Acute (2) Dehydration Current Visit: Yes Status: Acute (3) Chronic HFrEF (heart failure with reduced ejection fraction) Current Visit: Yes Status: Chronic (4) Cardiomyopathy Current Visit: Yes Status: Chronic (5) Essential (primary) hypertension Current Visit: Yes Status: Chronic (6) HLD (hyperlipidemia) Current Visit: Yes Status: Chronic Qualifiers: Hyperlipidemia type: mixed hyperlipidemia Qualified Code(s): E78.2 - Mixed hyperlipidemia (7) Type 1 diabetes mellitus Current Visit: Yes Status: Chronic (8) GERD (gastroesophageal reflux disease) Current Visit: Yes Status: Chronic
--- NOTE | 2021-01-08 10:08 | Cat Scan Report ---
CT abdomen pelvis wo con INDICATION / CLINICAL INFORMATION: UPPER abd pain LOSS OF APPETITE . TECHNIQUE: Routine CT abdomen pelvis without contrast All CT scans at this location are performed using CT dose reduction for ALARA by means of automated exposure control. COMPARISON: 08/07/2020 FINDINGS: Cholelithiasis noted. Multiple cystlike lesions identified throughout the liver, similar to the prior exam. The spleen, pancreas adrenal glands are grossly unremarkable within the limits of noncontrast technique. A 5 cm cyst is noted within the lower pole the right kidney. No free air or free fluid. The urinary bladder wall is slightly thickened. The appendix is not well i dentified. There is mild diffuse anasarca. Large stool burden identified throughout the colon. IMPRESSION: Cholelithiasis, as above. No obvious gallbladder wall thickening appreciated. Hypodensities scattered throughout the liver are stable from 08/07/2020 and may represent cysts. Large stool burden identifie d throughout the colon which could represent constipation. Signer Name: Filipe Gomez MD Signed: 01/08/2021 10:04 AM Workstation Name: [id number]
--- NOTE | 2021-01-08 14:19 | Electrocardiograph Report ---
[facility] [place] Test Date: 2021-01-07 Test Time: 18:00:37 Pat Name: JEREMIE PINEDO Department: Room: A481 1 Gender: F Stock Pitcher: TOBY : 1950 Requested By: DEANDRE FRAIRE Order Number: [id number] Reading MD: Abdiaziz Gardner Measurements Intervals [place] Rate: 78 P: 60 [place]: 129 QRS: 60 QRSD: 85 T: 88 QT: 397 QTc: 454 Interpretive Statements Sinus rhythm Compared to ECG 01/02/2021 07:00:01 No significant change Electronically Signed On 01-08-2021 14:18:51 EDT by Abdiaziz Gardner
--- NOTE | 2021-01-08 14:21 | Electrocardiograph Report ---
[facility] Test Date: 2021-01-07 Test Time: 22:44:26 Pat Name: JEREMIE PINEDO Department: Room: A481 1 Gender: F Bridge Worker: ZENIA : 1950 Requested By: DEANDRE FRAIRE Order Number: [id number] Reading MD: Abdiaziz Gardner Measurements Intervals [place] Rate: 82 P: 51 [place]: 130 QRS: 50 QRSD: 84 T: 83 QT: 392 QTc: 458 Interpretive Statements Sinus rhythm Compared to ECG 01/07/2021 18:00:37 No significant changes Electronically Signed On 01-08-2021 14:21:00 EDT by Abdiaziz Gardner
--- NOTE | 2021-01-08 14:27 | Electrocardiograph Report ---
[facility], [place] Test Date: 2021-01-08 Test Time: 07:59:02 Pat Name: JEREMIE PINEDO Department: Room: A481 1 Gender: F Head Lineman: MELISSA : 1950 Requested By: EMELY ACEVEDO Order Number: [id number] Reading MD: Abdiaziz Gardner Measurements Intervals [place] Rate: 76 P: 74 [place]: 156 QRS: 47 QRSD: 96 T: 101 QT: 403 QTc: 453 Interpretive Statements Sinus rhythm Nonspecific T abnrm, anterolateral leads Compared to ECG 01/07/2021 22:44:26 No significant changes Electronically Signed On 01-08-2021 14:27:19 EDT by Abdiaziz Gardner
--- NOTE | 2021-01-08 14:30 | Electrocardiograph Report ---
[facility] Test Date: 2021-01-08 Test Time: 11:44:10 Pat Name: JEREMIE PINEDO Department: Room: A481 1 Gender: F Molder Machine Tender: MELISSA : 1950 Requested By: EMELY ACEVEDO Order Number: [id number] Reading MD: Abdiaziz Gardner Measurements Intervals [place] Rate: 79 P: 72 [place]: 144 QRS: 57 QRSD: 96 T: 128 QT: 396 QTc: 455 Interpretive Statements Sinus rhythm Atrial premature complex Abnormal T, consider ischemia, lateral leads Compared to ECG 01/08/2021 07:59:02 Atrial premature complex(es) now present Electronically Signed On 01-08-2021 14:29:32 EDT by Abdiaziz Gardner
[2021-01-08] MEDS: traMADol 50 MG TAB PO PRN (15:22)
[2021-01-09] MEDS: HEPARIN 5,000 UNIT/1 ML VIAL SUB-Q SCH (06:00)
[2021-01-09 06:26] LABS: Basophils % (Auto) 0.4 % (0.0-1.8); Eosinophils # (Auto) 0.1 K/mm3 (0.0-0.4); Hematocrit 32.4 % (30.3-42.9); Hemoglobin 10.9 gm/dl (10.1-14.3); Mean Corpuscular HGB Conc 34 % (30-34); Mean Corpuscular Volume 92 fl (79-97); Monocytes # (Auto) 0.3 K/mm3 (0.0-0.8); Monocytes % (Auto) 12.3 % (0.0-7.3); Platelet Count 95 K/mm3 (140-440); Red Blood Count 3.51 M/mm3 (3.65-5.03); Red Cell Distribution Width 14.8 % (13.2-15.2)
[2021-01-09 06:32] LABS: INR 0.93 (0.87-1.13)
[2021-01-09 06:42] LABS: BUN/Creatinine Ratio 36; Blood Urea Nitrogen 32 mg/dL (7-17); Calcium 8.2 mg/dL (8.4-10.2); Hemolysis Index 9
--- NOTE | 2021-01-09 08:34 | Discharge Summary ---
Providers - Providers Date of Admission: 01/07/21 23:30 Date of discharge: 01/09/21 Attending physician: PEYMAN RODRÍGUEZ 01/07/21 23:49 Consult to Dietitian/Nutrition [CONS] Routine Physician Instructions: Reason For Exam: Reason for Consult: Diet education 01/08/21 Consult to Cardiac Rehabilitation [CONS] Routine Reason For Exam: Phase I 01/08/21 00:10 Consult to Cardiology [CONS] Routine Consulting Provider: ANTOINETTE GELLER Reason For Exam: chest pain Primary care physician: COGNOS BI DEVELOPER Hospitalization Reason for admission: Hypotension Condition: Good Hospital course: Pt is a 70-year-old AA female with a hx of CMP (EF 35-40%) and chronic HFrEF who presented with complaints of low BP. Patient reported generalized weakness and fatigue over the past couple of weeks. She noteed decreased PO intake, stating "I only eat once a day." Pt noticed that her BP was low (systolic in the 70-8 0s) over the weekend, prompting her to call the core man office. She was advised to hold off on her antihypertensives, after which she noticed an improvement in her SBP to the 110s range. However, her PCP noticed her BP was still low upon evaluation and sent her to [facility]. Pt reported intermittent dizziness when standing. No syncope or LOC. Pt reported that she has been exercising vigorously since being diagnosed with heart failure. She uses a stationary bike for 1-2 hours on a daily basis. Of note, pt is on 1mg Bumex qDay as an outpatient. She states that she drinks less than 1L of fluids daily. The patient was admitted with diagnosis of hyponatremia, compensated chronic systolic heart failure, atypical chest pain, diabetes mellitus type 2, abdominal pain and orthostasis. Patient was seen by cardiology in consultation. Patient noted to have recent stress test that was found to be negative. Cardiology recommended increased p.o. fluid intake and continue GDMT guidelines for heart failure when blood pressure permits. Patient's blood pressure stabilized and patient had no further complications. CT scan of the abdomen pelvis was found to be negative except for liver cysts, cholelithiasis and constipation. Patient is felt to have received maximal hospital benefit and will be discharged home. Dedicated discharge time 33 minutes. Disposition: DC-30 STILL A PATIENT Final Discharge Diagnosis (Prints w/discharge instructions): hyponatremia, compensated chronic systolic heart failure, atypical chest pain, diabetes mellitus type 2, abdominal pain and orthostasis. Core Measure Documentation - Palliative Care Palliative Care/ Comfort Measures: Not Applicable - Core Measures Any of the following diagnoses?: none Exam - Constitutional Vitals: Temp Pulse Resp BP Pulse Ox 99.0 F 81 16 139/64 98 01/09/21 04:01 01/09/21 04:01 01/09/21 04:01 01/09/21 04:01 01/09/21 04:01 General appearance: Present: no acute distress, well-nourished - EENT Eyes: Present: PERRL ENT: hearing intact, clear oral mucosa - Neck Neck: Present: supple, normal ROM - Respiratory Respiratory effort: normal Respiratory: bilateral: CTA - Cardiovascular Heart Sounds: Present: S1 & S2. Absent: rub, click - Extremities Extremities: pulses symmetrical, No edema Peripheral Pulses: within normal limits - Abdominal General gastrointestinal: Present: soft, non-tender, non-distended, normal bowel sounds Female genitourinary: Present: normal - Integumentary Integumentary: Present: clear, warm, dry - Musculoskeletal Musculoskeletal: gait normal, strength equal bilaterally - Psychiatric Psychiatric: appropriate mood/affect, intact judgment & insight - Neurologic Neurologic: CNII-XII intact, moves all extremities Plan Activity: advance as tolerated Weight Bearing Status: Weight Bear as Tolerated Diet: low fat, low cholesterol, low salt Follow up with: PRIMARY CARE, [Primary Care Provider] - 3-5 Days KELLIE THORPE MD [Staff Physician] - 7 Days Prescriptions: Spironolactone [Aldactone] 25 mg PO QDAY #30 tablet Bumetanide [Bumex 1 mg tab] 1 mg PO QDAY #30 tablet carvediloL [Coreg] 6.25 mg PO BID #60 tablet Losartan [Cozaar] 50 mg PO QDAY #30 tablet metFORMIN [Glucophage] 500 mg PO BIDDIAB #60 tablet ISOSORBIDE MONOnitrate [Imdur ER] 30 mg PO QDAY #30 tablet Potassium Chloride [K-Dur] 20 meq PO QDAY #7 tablet AtorvaSTATin [Lipitor] 40 mg PO QHS #30 tablet Pantoprazole [Protonix TAB] 40 mg PO QDAY #30 Fluticasone/Umeclidin/Vilanter [Trelegy Ellipta 100-62.5-25] 1 each IH DAILY 30 Days
[2021-01-09 08:36] VITALS: BP 111/54
[2021-01-09] MEDS: INSULIN LISPRO 100 UNIT/ML SUB-Q SCH (09:17)
[2021-01-09] MEDS: traMADol 50 MG TAB PO PRN (09:18)
[2021-01-09] MEDS ORDERED: ASPIRIN EC 325 MG TAB PO SCH (10:00)
== END 2021-01-09 10:45 | disposition home or self-care (01) ==
LOC: ED 17:44 → 4A 23:30
PROVIDERS: ADMIT Internal Medicine Geriatric Medicine; ATTEND Hospitalist
DX: I11.0 Hypertensive heart disease with heart failure (principal); I50.22 Chronic systolic (congestive) heart failure; E87.1 Hypo-osmolality and hyponatremia; E10.9 Type 1 diabetes mellitus without complications; R07.89 Other chest pain; R10.9 Unspecified abdominal pain; R51.9 Headache, unspecified; E78.5 Hyperlipidemia, unspecified; H54.7 Unspecified visual loss; K21.9 Gastro-esophageal reflux disease without esophagitis; I42.0 Dilated cardiomyopathy; I95.9 Hypotension, unspecified; R42 Dizziness and giddiness; E86.0 Dehydration; J45.909 Unspecified asthma, uncomplicated; Z79.899 Other long term (current) drug therapy; Z79.82 Long term (current) use of aspirin; Z79.84 Long term (current) use of oral hypoglycemic drugs; Z98.890 Other specified postprocedural states
CPT/HCPCS: 36415; 71046; 71275; 74176; 80048; 80053; 81001; 82550; 82570; 82962; 83735; 83935; 84300; 84443; 84484; 84550; 85025; 85379; 85610; 93005; 96372; 99285; G0378; J1644; Q9967; J1815